=== PATIENT | female | born 1975 | race Caucasian/White ===

== ENCOUNTER → 2017-02-08 | Outpatient (CLI) | payer OTHER ==
[2017-02-08 11:11] LABS: Blood Urea Nitrogen 8 mg/dL (7-17)
--- NOTE | 2017-02-08 12:41 | CT ---
EXAMINATION TYPE: CT ChestAbdPelvis w con DATE OF EXAM: 02/08/2017 COMPARISON: NONE HISTORY: Colon cancer CT DLP: 429.40 mGycm. Automated Exposure Control for Dose Reduction was Utilized. CONTRAST: CT scan of the thorax, abdomen and pelvis is performed with IV Contrast, patient injected with 100 ml mL of Omnipaque 300. FINDINGS: LUNGS: There is a 3 mm pulmonary nodule within the right upper lobe on series 4 image 9 peripherally. Mild right apical paraseptal emphysematous changes are also seen. Scattered blebs are noted. Right u pper lobe pulmonary nodule on series 4 image 23 measures 3 mm. Right middle lobe pulmonary nodule liliana t is subpleural location on image 26 measures 2 mm. Right middle lobe nodule also on image 26 measure s 3 mm. Right lower lobe pulmonary nodule medially on image 26 measures 8 mm. Right lower lobe nodule on image 28 measures 3 mm. Right lower lobe nodule at the lung base on image 40 measures 1.7 cm. Wit hin the left lower lobe along the interlobar fissure there is a 5 mm pulmonary nodule within the ling debbie there is a 4 mm pulmonary nodule on image 29 and a 3 mm nodule on image 36. There is no pleural e ffusion or pneumothorax seen. The tracheobronchial tree is patent. MEDIASTINUM: Right hilar conglomeration of lymph nodes measures 1.8 x 1.7 cm. Subcarinal lymph node m easures 9 mm in short axis. Nonenlarged are prominent prevascular lymph nodes are also seen within th e mediastinum. Left paraesophageal lymph node on image 34 measures 1.8 x 1.3 cm. Other smaller paraes ophageal lymph nodes are seen on images 43 and 45. Left supraclavicular adenopathy is noted with the largest conglomeration on image 6 measuring 1.8 x 1.9 cm.. No pericardial effusion is seen. LIVER/GB: Innumerable hepatic metastases are present with the largest involving segments 4A, 4B, and 5 measuring up to 8.2 x 6.3 x 6.5 cm. This is measured for reference on series 3 image 62 and series 8 image 36. Subserosal peritoneal lesion with possible parenchymal involvement is also seen on image 48 measuring 2.6 cm. Small amount of perihepatic ascites tracks into the low pelvis. PANCREAS: No ductal dilatation within the pancreas.. SPLEEN: Low-density lesion near the splenic hilum measures 2.1 cm in is thought to represent an abnor mal lymph node or metastatic peritoneal deposit. ADRENALS: No nodule is seen within the adrenal glands. KIDNEYS: Kidneys enhance symmetrically. BOWEL: Left-sided ostomy is present. Radiodense linear material seen within the distal sigmoid colon near the rectosigmoid junction possibly from an ingested substance. Calcific density is also seen gerda r the rectum could be postsurgical or related to a calcified node. No evidence of bowel obstruction o r dilated bowel. GENITAL ORGANS: Uterus is obscured by the innumerable peritoneal implants. OSSEOUS STRUCTURES: Sclerotic lesion within the right superior acetabulum is present on image 101 karrie suring 7 mm. This is nonspecific and could represent metastasis or a benign bone island. Osseous stru ctures appear intact. MESENTERY/LYMPH NODES: Innumerable mesenteric implants versus extensive adenopathy is seen within the abdomen and pelvis with the largest conglomeration on series 3 image 81 measuring 5.8 x 4.7 byr 6.0 cm. Innumerable rounded soft tissue densities are interposed between loops of bowel and surrounding t he uterus. This also impresses upon the urinary bladder. IMPRESSION: 1. Extensive metastatic disease with supraclavicular adenopathy, mediastinal adenopathy, numerous pul monary nodules, innumerable large hepatic metastasis involving both lobes and innumerable soft tissue mesenteric metastatic deposits and/or extensive adenopathy within the abdomen and pelvis. 2. Well-circumscribed sclerotic lesion within the right acetabulum could represent metastasis or a gladys ne island. 3. Linear rectosigmoid junction density may relate to an ingested foreign object. A Yellow message has been communicated to Blake Louis MD via the [email or web address] Critical Result system on 02/08/2017 12:38 PM, Message ID [id number].
== END | disposition home or self-care (01) ==
LOC: RADPROMAIN 10:26
PROVIDERS: ATTEND Internal Medicine Hematology & Oncology
DX: C78.7 Secondary malignant neoplasm of liver and intrahepatic bile duct (principal); C18.7 Malignant neoplasm of sigmoid colon; C78.6 Secondary malignant neoplasm of retroperitoneum and peritoneum
CPT/HCPCS: 82565; 84520; 71260; 74177; Q9967

== ENCOUNTER → 2017-05-01 | Outpatient (CLI) | payer OTHER ==
[2017-05-01 09:46] LABS: Blood Urea Nitrogen 10 mg/dL (7-17)
--- NOTE | 2017-05-01 13:44 | CT ---
EXAMINATION TYPE: CT ChestAbdPelvis w con DATE OF EXAM: 05/01/2017 COMPARISON: CT chest abdomen and pelvis February 08, [address] abdomen and pelvis Aug HISTORY: Colon CA progress study, last chemotherapy 2 weeks ago. History of prior partial colectomy. CT DLP: 477.9 mGycm. Automated Exposure Control for Dose Reduction was Utilized. CONTRAST: CT scan of the thorax, abdomen and pelvis is performed with oral and with IV Contrast, patient inject ed with 100 mL of Isovue 300. FINDINGS: LUNGS: There is progression of pulmonary metastatic disease with multiple new and enlarging nodules i dentified. For reference right basilar nodule measures 2.8 x 2.7 cm axial image 33 and measured 1.7 x 1.3 cm on prior study. Scattered new nodules are noted bilaterally, for reference there is 1.0 x 0.9 cm medial right middle lobe nodule noted. MEDIASTINUM: There are no new greater than 1 cm noncalcified hilar or mediastinal lymph nodes. There are stable prominent but calcified prevascular lymph node axial image 19. No pericardial effusion is seen. OTHER: There is redemonstration of left subclavian Mediport catheter. LIVER/GB: Increasing hepatomegaly is seen with marked progression in size and number of diffuse hepat ic metastatic lesions. For reference largest lesion anteriorly medial segment left hepatic lobe measu res 10.9 cm long axis axial image 60 versus 8.0 cm prior study image 59. IVC is compressed by enlarge d liver. Contracted gallbladder is now seen. PANCREAS: No significant abnormality is seen. SPLEEN: Metastatic focus in splenic hilum now measures 3.3 cm on long axis axial image 60 enlarged in size from prior study where it measured 2.1 cm . ADRENALS: No significant abnormality is seen. KIDNEYS: There are multiple new wedge-shaped areas of hypodensity in both kidneys raising concern for vascular insult. There is suspected new adjacent metastatic focus measuring 1.1 cm laterally mid john e level left kidney series 3 image 66 measuring 1.1 cm on long axis. BOWEL: The oral contrast does not reach colonic level. Visualized bowel shows no suspicious dilatatio n. There is left mid abdominal colostomy. GENITAL ORGANS: Uterus is poorly visualized in the pelvis due to surrounding metastatic deposits. Tub al ligation clips displaced and pelvis are redemonstrated into cul-de-sac. LYMPH NODES: There are marked abnormal abdominal and pelvic lymph nodes as well as innumerable perito leatha and omental masses which have significantly increased in size and number from prior study. For r eference a left mid abdominal posterior or retroperitoneal metastatic lesion measures 6.3 x 5.5 cm cu rrent study image 81 versus 5.8 x 4.7 prior study axial image 41. There is progression of abdominal a nd pelvic ascites with fairly moderate to large amount now present. Patient has very little intra-abd ominal fat evaluation suboptimal. There is now better visualization of subcutaneous metastatic lesion adjacent to ostomy measuring 3.8 cm long axis axial image 74 versus 1.3 cm long axis prior study. OSSEOUS STRUCTURES: No significant abnormality is seen. OTHER: There is new moderate to severe subcutaneous edema or anasarca with diffuse blurring of subcut aneous fat. IMPRESSION: Continued interval progression of metastatic disease as detailed above. New vascular insu lt to bilateral kidneys may be on basis of IVC compression from enlarged liver. Case discussed with ordering oncologist via telephone at time of dictation.
== END | disposition home or self-care (01) ==
LOC: RADPROMAIN 09:08
PROVIDERS: ATTEND Internal Medicine Hematology & Oncology
DX: C78.7 Secondary malignant neoplasm of liver and intrahepatic bile duct (principal); C78.00 Secondary malignant neoplasm of unspecified lung; C78.89 Secondary malignant neoplasm of other digestive organs; C18.7 Malignant neoplasm of sigmoid colon; Z90.49 Acquired absence of other specified parts of digestive tract
CPT/HCPCS: 82565; 84520; 71260; 74177; 36415; Q9967

== ENCOUNTER 2017-05-21 11:01 | Inpatient (IN) | payer OTHER ==
[2017-05-21] MEDS ORDERED: SODIUM CHLORIDE 0.9% 1,000 ML IV STA (11:32)
[2017-05-21] MEDS ORDERED: ONDANSETRON ODT 8 MG TAB.RAPDIS PO STA (11:32)
[2017-05-21 11:52] LABS: Appearance,Urine Clear (Clear); Bacteria,Urine Rare /hpf; Bilirubin,Urine Negative (Negative); Blood,Urine Moderate (Negative); Color,Urine Yellow; Glucose,Urine (UA) Negative (Negative); Ketones,Urine Negative (Negative); Leukocyte Esterase,Urine Small (Negative); Mucus,Urine Rare /hpf; Nitrite,Urine Negative (Negative); Protein,Urine Trace (Negative); RBC,Urine 25 /hpf (0-5); Specific Gravity,Urine 1.013 (1.001-1.035); Squamous Epithelial Cell,Urine 3 /hpf (0-4); WBC,Urine 22 /hpf (0-5)
[2017-05-21 11:53] LABS: Anisocytosis Slight; Basophils % (A) 0 %; Eosinophils % (A) 0 %; HCT 34.4 % (34.0-46.0); HGB 10.2 gm/dL (11.4-16.0); Hypochromasia Marked; Lymphocytes # (A) 0.3 k/uL (1.0-4.8); Lymphocytes % (A) 3 %; MCH 27.8 pg (25.0-35.0); MCHC 29.8 g/dL (31.0-37.0); MCV 93.3 fL (80.0-100.0); Macrocytosis Slight; Mean Platelet Volume 7.4; Monocytes # (A) 0.8 k/uL (0-1.0); Monocytes % (A) 8 %; Neutrophils # (A) 8.9 k/uL (1.3-7.7); Neutrophils % (A) 87 %; RBC 3.68 m/uL (3.80-5.40); RDW 18.6 % (11.5-15.5); WBC 10.2 k/uL (3.8-10.6)
[2017-05-21 11:54] LABS: Platelet Count 783 k/uL (150-450)
[2017-05-21 11:59] LABS: ALT 27 U/L (9-52); AST 83 U/L (14-36); Alkaline Phosphatase 581 U/L (38-126); Amylase 43 U/L (30-110); Anion Gap 16 mmol/L; Blood Urea Nitrogen 15 mg/dL (7-17); Carbon Dioxide 25 mmol/L (22-30); Chloride 99 mmol/L (98-107); Glucose 83 mg/dL (74-99); Lipase 69 U/L (23-300); Potassium 3.9 mmol/L (3.5-5.1); Sodium 140 mmol/L (137-145); Total Bilirubin 0.9 mg/dL (0.2-1.3); Total Protein 6.2 g/dL (6.3-8.2)
--- NOTE | 2017-05-21 12:00 | ED ---
Abdominal Pain HPI - General Chief Complaint: Abdominal Pain Stated Complaint: Poss Bowel Obstruction Time Seen by Provider: 05/21/17 11:13 Source: patient, RN notes reviewed, old records reviewed Mode of arrival: ambulatory Limitations: no limitations - History of Present Illness Initial Comments: 41-year-old female presents emergency Department chief complaint of abdominal distention. She has history of colon cancer currently undergoing chemotherapy. She has history of neurofibromatosis as well. Patient per that she's not had a bowel movement from her colostomy site within the past 2 days. Upon arriving to emergency. She did have this large amount of stool that came out. She reports she felt some relief of the pressure but still complains of some distention. She denies any changes in urination. She does complain of some abdominal pain and radiating towards the back. She denies any chest pain shortness breath or coughing. She is currently undergoing chemotherapy. She has a bag of chemo currently running into her report. - Related Data Home Medications Medication Instructions Recorded Confirmed Acetaminophen Tab [Tylenol Tab] 650 mg PO Q6HR PRN 05/21/17 05/21/17 Calcium Carbonate [Tums] 500 mg PO TID PRN 05/21/17 05/21/17 Doxycycline Hyclate 100 mg PO BID 05/21/17 05/21/17 Ferrous Sulfate [Feosol] 325 mg PO DAILY 05/21/17 05/21/17 Furosemide [Lasix] 20 mg PO DAILY 05/21/17 05/21/17 HYDROcodone/APAP 10-325MG [[place] 1 tab PO Q6H PRN 05/21/17 05/21/17 10-325] Ondansetron [Zofran] 4 mg PO QID PRN 05/21/17 05/21/17 Allergies Allergy/AdvReac Type Severity Reaction Status Date / Time Penicillins Allergy Rapid Verified 05/21/17 11:16 Heart Rate promethazine [From Phenergan] Allergy Rash/Hives Verified 05/21/17 11:16 metoclopramide [From Reglan] AdvReac Dyspnea Verified 05/21/17 11:16 Review of Systems ROS Statement: Those systems with pertinent positive or pertinent negative responses have been documented in the HPI. ROS Other: All systems not noted in ROS Statement are negative. Past Medical History Additional Past Medical History / Comment(s): Nf1, stage 4 colon cancer History of Any Multi-Drug Resistant Organisms: None Reported Past Surgical History: Orthopedic Surgery, Tonsillectomy Additional Past Surgical History / Comment(s): bowel resection Past Psychological History: No Psychological Hx Reported Smoking Status: Former smoker Past Alcohol Use History: None Reported Past Drug Use History: None Reported General Exam - General Exam Comments Initial Comments: 41-year-old female. No distress. Limitations: no limitations General appearance: alert, in no apparent distress Head exam: Present: atraumatic, normocephalic, normal inspection Eye exam: Present: normal appearance, PERRL, EOMI. Absent: scleral icterus, conjunctival injection, periorbital swelling ENT exam: Present: normal exam, mucous membranes moist Neck exam: Present: normal inspection. Absent: tenderness, meningismus, lymphadenopathy Respiratory exam: Present: normal lung sounds bilaterally. Absent: respiratory distress, wheezes, rales, rhonchi, stridor Cardiovascular Exam: Present: normal rhythm, tachycardia, normal heart sounds. Absent: systolic murmur, diastolic murmur, rubs, gallop, clicks GI/Abdominal exam: Present: tenderness, normal bowel sounds. Absent: soft ( Patient has significant tenderness and distention on exam. She had a large amount of output from her colostomy site. There is a tympanic to percussion.), distended, guarding, rebound, rigid Extremities exam: Present: normal inspection, full ROM, normal capillary refill , other ( is very thin and frail.). Absent: tenderness, pedal edema, joint swelling, calf tenderness Back exam: Present: normal inspection Neurological exam: Present: alert, oriented X3, CN II-XII intact Psychiatric exam: Present: normal affect, normal mood Skin exam: Present: warm, dry, intact, normal color, other (Evidence of small protrusions of her skin throughout body consistent with neurofibromatosis.). Absent: rash Course Vital Signs 05/21/17 05/21/17 11:04 15:40 Temperature 97.8 F Pulse Rate 118 H 114 H Respiratory 18 18 Rate Blood Pressure 178/100 146/104 O2 Sat by Pulse 98 96 Oximetry Medical Decision Making - Medical Decision Making Patient's 41-year-old female chief complaint of abdominal pain and distention. Sent in by primary care provider to rule out bowel obstruction. She did have a large stool output from her colostomy site. She's had a history of bowel obstruction in the past that he she had a colostomy placed. Patient continues to have significant distention despite having the large bowel movement. We did a CT on pelvis which shows evidence of ascites and scar. No evidence of pleural effusions. She also noted have an elevated lactic acid. Given 2 L of fluid. Patient reports she does have some back pain given morphine. Discussed with Dr. Kearney. He also examined the patient. [place] the patient at this time and consult to oncology. She also is found to have a urinary tract infection. We'll do urine culture. Given IV Levaquin. Case with Dr. Lee. - Lab Data Result diagrams: 05/21/17 11:35 05/21/17 11:35 Lab Results 05/21/17 05/21/17 05/21/17 Range/Units 11:35 11:35 11:35 WBC 10.2 (3.8-10.6) k/uL RBC 3.68 L (3.80-5.40) m/uL Hgb 10.2 L (11.4-16.0) gm/dL Hct 34.4 (34.0-46.0) % MCV 93.3 (80.0-100.0) fL MCH 27.8 (25.0-35.0) pg MCHC 29.8 L (31.0-37.0) g/dL RDW 18.6 H (11.5-15.5) % Plt Count 783 H (150-450) k/uL Neutrophils % 87 % Lymphocytes % 3 % Monocytes % 8 % Eosinophils % 0 % Basophils % 0 % Neutrophils # 8.9 H (1.3-7.7) k/uL Lymphocytes # 0.3 L (1.0-4.8) k/uL Monocytes # 0.8 (0-1.0) k/uL Eosinophils # 0.0 (0-0.7) k/uL Basophils # 0.0 (0-0.2) k/uL Hypochromasia Marked Anisocytosis Slight Macrocytosis Slight Sodium 140 (137-145) mmol/L Potassium 3.9 (3.5-5.1) mmol/L Chloride 99 (98-107) mmol/L Carbon Dioxide 25 (22-30) mmol/L Anion Gap 16 mmol/L BUN 15 (7-17) mg/dL Creatinine 0.50 L (0.52-1.04) mg/dL Est GFR (CKD-EPI)AfAm >90 (>60 ml/min/1.73 sqM) Est GFR (CKD-EPI)NonAf >90 (>60 ml/min/1.73 sqM) Glucose 83 (74-99) mg/dL Lactic Ac Sepsis Rflx Plasma Lactic Acid Malcolm (0.7-2.0) mmol/L Calcium 9.0 (8.4-10.2) mg/dL Total Bilirubin 0.9 (0.2-1.3) mg/dL AST 83 H (14-36) U/L ALT 27 (9-52) U/L Alkaline Phosphatase 581 H (38-126) U/L Total Protein 6.2 L (6.3-8.2) g/dL Albumin 3.0 L (3.5-5.0) g/dL Amylase 43 (30-110) U/L Lipase 69 (23-300) U/L Urine Color Yellow Urine Appearance Clear (Clear) Urine pH 6.0 (5.0-8.0) Ur Specific [place] 1.013 (1.001-1.035) Urine Protein Trace H (Negative) Urine Glucose (UA) Negative (Negative) Urine Ketones Negative (Negative) Urine Blood Moderate H (Negative) Urine Nitrite Negative (Negative) Urine Bilirubin Negative (Negative) Urine Urobilinogen 2.0 (<2.0) mg/dL Ur Leukocyte Esterase Small H (Negative) Urine RBC 25 H (0-5) /hpf Urine WBC 22 H (0-5) /hpf Ur Squamous Epith Cells 3 (0-4) /hpf Urine Bacteria Rare H (None) /hpf Urine Mucus Rare H (None) /hpf 05/21/17 05/21/17 05/21/17 Range/Units 11:35 12:03 15:29 WBC (3.8-10.6) k/uL RBC (3.80-5.40) m/uL Hgb (11.4-16.0) gm/dL Hct (34.0-46.0) % MCV (80.0-100.0) fL MCH (25.0-35.0) pg MCHC (31.0-37.0) g/dL RDW (11.5-15.5) % Plt Count (150-450) k/uL Neutrophils % % Lymphocytes % % Monocytes % % Eosinophils % % Basophils % % Neutrophils # (1.3-7.7) k/uL Lymphocytes # (1.0-4.8) k/uL Monocytes # (0-1.0) k/uL Eosinophils # (0-0.7) k/uL Basophils # (0-0.2) k/uL Hypochromasia Anisocytosis Macrocytosis Sodium (137-145) mmol/L Potassium (3.5-5.1) mmol/L Chloride (98-107) mmol/L Carbon Dioxide (22-30) mmol/L Anion Gap mmol/L BUN (7-17) mg/dL Creatinine (0.52-1.04) mg/dL Est GFR (CKD-EPI)AfAm (>60 ml/min/1.73 sqM) Est GFR (CKD-EPI)NonAf (>60 ml/min/1.73 sqM) Glucose (74-99) mg/dL Lactic Ac Sepsis Rflx Y Plasma Lactic Acid Malcolm 2.7 H* 2.6 H* (0.7-2.0) mmol/L Calcium (8.4-10.2) mg/dL Total Bilirubin (0.2-1.3) mg/dL AST (14-36) U/L ALT (9-52) U/L Alkaline Phosphatase (38-126) U/L Total Protein (6.3-8.2) g/dL Albumin (3.5-5.0) g/dL Amylase (30-110) U/L Lipase (23-300) U/L Urine Color Urine Appearance (Clear) Urine pH (5.0-8.0) Ur Specific [place] (1.001-1.035) Urine Protein (Negative) Urine Glucose (UA) (Negative) Urine Ketones (Negative) Urine Blood (Negative) Urine Nitrite (Negative) Urine Bilirubin (Negative) Urine Urobilinogen (<2.0) mg/dL Ur Leukocyte Esterase (Negative) Urine RBC (0-5) /hpf Urine WBC (0-5) /hpf Ur Squamous Epith Cells (0-4) /hpf Urine Bacteria (None) /hpf Urine Mucus (None) /hpf - Radiology Data Radiology results: report reviewed Asymmetric effusion to the left kidney to the right kidney may relate to diminish venous outflow. There is ascites and pleural effusions and scar. Innumerable hepatic masses. Metastatic disease noted in the spleen. Adenopathy as prescribed. Compression of the inferior vena cava. There is moderate fecal stasis noted. Disposition Clinical Impression: Colon cancer, Ascites, Abdominal distension, Lactic acid increased, UTI ( urinary tract infection), Pleural effusion Disposition: ADMITTED IP TO THIS HOSP Condition: Stable Referrals: Cammie Henderson MD [Primary Care Provider] - 1-2 days Time of Disposition: 16:28
[2017-05-21] MEDS ORDERED: SODIUM CHLORIDE 0.9% 1,000 ML IV ONE (12:02)
--- NOTE | 2017-05-21 12:07 | XR ---
EXAMINATION TYPE: XR KUB DATE OF EXAM: 05/21/2017 COMPARISON: NONE HISTORY: Pain TECHNIQUE: Single supine KUB image of the abdomen is obtained FINDINGS: Small bowel demonstrates a few scattered air-fluid levels and mild distention which is nonspecific. Gas and fecal material is seen in non-distended colon. No convincing evidence for pneumoperitoneum. No unusual calcifications. The lung bases are clear. The osseous structures are intact. IMPRESSION: 1. Overall nonobstructive bowel gas pattern.
[2017-05-21] MEDS ORDERED: RX INFO: IV CONTRAST WAS GIVEN 1 EACH MISC MISCELLANE PRN (12:33)
[2017-05-21] MEDS ORDERED: MORPHINE SULFATE 4MG/4ML SYRG IVP STA (12:50)
[2017-05-21] MEDS: SODIUM CHLORIDE 0.9% 1,000 ML IV SCH ×2 (14:12→22:33)
--- NOTE | 2017-05-21 15:13 | CT ---
EXAMINATION TYPE: CT abdomen pelvis w con DATE OF EXAM: 05/21/2017 COMPARISON: 05/01/2017 HISTORY: Abd distention. CT DLP: 1033 mGycm CONTRAST: CT scan of the abdomen and pelvis is performed without Oral Contrast and with IV Contrast, patient in jected with 100ml mL of Isovue M300. FINDINGS: LUNG BASES-: Basilar atelectasis as well as the nodules and small pleural effusions. LIVER/GB: Innumerable hepatic masses are identified as seen previously. The largest mass previously m easured 11 cm in greatest dimension and currently measures 11 cm as well. The gallbladder appears to be free of cholelithiasis. There is compression of the intrahepatic portion of the IVC. PANCREAS: No inflammation. No distinct mass. SPLEEN: Again noted are splenic lesions as well as adenopathy or mass in the region of the splenic hi lum unchanged. ADRENALS: No nodule. No thickening. KIDNEYS/BLADDER: Asymmetric perfusion of the left kidney relative to the right kidney may be related to diminished venous outflow. No hydronephrosis. No nephrolithiasis. No distinct renal mass. Urina ry bladder grossly unremarkable. BOWEL: Left-sided ostomy changes. Mild bowel distention. Large amount of intracolonic debris. GENITAL ORGANS: No gross abnormality. LYMPH NODES: Para-aortic adenopathy is stable. Aorto intracaval adenopathy appears stable. Large left para-aortic mass measuring 6.6 x 7.2 cm. Peritoneal nodularity seen throughout unchanged. Multiple p elvic masses again redemonstrated. AORTA: No significant abnormality. OSSEOUS STRUCTURES: No significant abnormality is seen. OTHER: There is extensive ascites throughout the abdomen and pelvis. Anasarca changes. . IMPRESSION: 1. Asymmetric perfusion of the left kidney relative to the right kidney may be related to diminished venous outflow. 2. Ascites, pleural effusions and anasarca. 3. Innumerable hepatic masses. Metastatic disease to the spleen. 4. Adenopathy as described. Compression of the inferior vena cava. 5 moderate fecal stasis.
[2017-05-21] MEDS ORDERED: ACETAMINOPHEN TAB 325 MG TAB PO PRN (16:28)
[2017-05-21] MEDS ORDERED: IBUPROFEN 400 MG TAB PO PRN (16:28)
[2017-05-21] MEDS ORDERED: NALOXONE 0.4 MG/ML 1 ML VIAL IV PRN (16:28)
[2017-05-21] MEDS ORDERED: LEVOFLOXACIN 750MG-D5W PMX 750 MG in DEXTROSE/WATER 1 150ML.BAG IVPB STA (16:28)
[2017-05-21] MEDS ORDERED: HYDROcodone/APAP 10-325MG 1 EACH TAB PO PRN (17:00)
[2017-05-21] MEDS: KETOROLAC 30 MG/ML 1 ML VIAL IVP PRN (17:06)
[2017-05-21 18:43] LABS: INR 1.4 (<1.2); Prothrombin Time 12.9 sec (9.0-12.0)
--- NOTE | 2017-05-21 18:52 | P.HPIM ---
History of Present Illness H&P Date: 05/21/17 Chief Complaint: Abdominal distention and constipation of 2 days' duration 41-year-old female with history of neurofibromatosis type I. She was diagnosed with metastatic colon cancer stage IV back in August 2016 and then was started on chemotherapy in October 2016. She has received 12 cycles of chemotherapy thus far and currently she is receiving chemotherapy through a pump. Patient presented to the hospital due to 2 day history of abdominal distention and constipation. Her colostomy has not been functioning for the past 2 days associated with some nauseous feeling and dry heaves mainly however the did report that she threw up after one of her meals yesterday. Her vomiting is nonbloody nonbilious at this time. Patient however denies any nausea at this time, and she reports that she felt way better after passing a bowel movement in the ED. Patient denies any trouble breathing, chest pain, or any urinary symptoms. Her urine analysis was dirty however she denies any urinary symptoms at this point. CODE STATUS was discussed with the patient, her wishes are to continue aggressive management of her cancer and to continue with chemotherapy at this point. She elected to be a full code and named her as a surrogate decision maker. Otherwise patient denies any fevers or chills at home, she is currently tolerating clear liquid diet and is asking to advance her diet. She denies any history of ascites or spontaneous bacterial peritonitis in the past. She denies any history of DVT. Review of Systems Constitutional: Patient denies fever, denies chills, denies night sweating, patient claims to be small all her life however she does admit to losing some weight Eyes: Patient denies visual changes, denies eye pain ENT: Patient denies ear pain, denies rhinorrhea, denies sore throat Cardiovascular: Patient denies chest pain, denies exertional dyspnea, denies peripheral leg edema, denies orthopnea, denies paroxysmal nocturnal dyspnea Respiratory:Patient denies cough, denies wheezing, denies shortness of breath Gastrointestinal: Patient patient has a colostomy, was constant for 2 days as mentioned in HPI, denies any abdominal pain Genitourinary: Patient denies dysuria, denies hematuria, denies changes in urinary habits, denies genital lesions Musculoskeletal: Patient denies muscle pain, denies joint pain Psychiatric: Patient denies changes in mood or memory, denies suicidal ideation, denies anxiety Endocrine: Patient denies heat intolerance, denies cold intolerance, denies excessive thirst, denies polyuria Neurological: Patient denies focal neurologic deficits, denies weakness, denies numbness, denies tingling Hem/Lymphatic: Patient denies bleeding tendency, denies bruising, denies swollen lymph glands Allergic/Immun: Patient denies recent allergic reactions Skin: Patient denies rashes, denies pruritis, denies ulcers Past Medical History Additional Past Medical History / Comment(s): Nf1, stage 4 colon cancer History of Any Multi-Drug Resistant Organisms: None Reported Past Surgical History: Orthopedic Surgery, Tonsillectomy Additional Past Surgical History / Comment(s): bowel resection Past Psychological History: No Psychological Hx Reported Smoking Status: Former smoker Past Alcohol Use History: None Reported Past Drug Use History: None Reported - Past Family History Family Additional Family Medical History / Comment(s): Denies any family history of cancer or coronary artery disease Medications and Allergies Home Medications and Allergies Comment(s): Reviewed Home Medications Medication Instructions Recorded Confirmed Type Acetaminophen Tab [Tylenol Tab] 650 mg PO Q6HR PRN 05/21/17 05/21/17 History Calcium Carbonate [Tums] 500 mg PO TID PRN 05/21/17 05/21/17 History Doxycycline Hyclate 100 mg PO BID 05/21/17 05/21/17 History Ferrous Sulfate [Feosol] 325 mg PO DAILY 05/21/17 05/21/17 History Furosemide [Lasix] 20 mg PO DAILY 05/21/17 05/21/17 History HYDROcodone/APAP 10-325MG [[place] 1 tab PO Q6H PRN 05/21/17 05/21/17 History 10-325] Ondansetron [Zofran] 4 mg PO QID PRN 05/21/17 05/21/17 History Allergies Allergy/AdvReac Type Severity Reaction Status Date / Time Penicillins Allergy Rapid Verified 05/21/17 11:16 Heart Rate promethazine [From Phenergan] Allergy Rash/Hives Verified 05/21/17 11:16 metoclopramide [From Reglan] AdvReac Dyspnea Verified 05/21/17 11:16 Physical Exam Vitals: Vital Signs Temp Pulse Resp BP Pulse Ox 05/21/17 15:40 114 H 18 146/104 96 04/10/18 11:04 97.8 F 118 H 18 178/100 98 Intake and Output 05/21/17 05/21/17 05/21/17 06:59 14:59 22:59 Other: Weight 50.349 kg Constitutional: No acute distress, conversant, pleasant, cachectic Eyes: Anicteric sclerae, moist conjunctiva, no lid-lag Pupils equal round reactive to light ENMT: NC/AT Oropharynx clear, no erythema, exudates Neck: Supple, FROM, no masses, or JVD No carotid bruits No thyromegaly Lungs: Clear to auscultation Clear to percussion Normal respiratory effort, no accessory muscle use Cardiovascular: Heart tachycardic regular in rate and rhythm, No murmurs, gallops, or rubs +2 peripheral edema Abdominal: Significantly distended, Nontender, no guarding, rebound or rigidity Abdomen moving with respiration Normoactive bowel sounds Colostomy bag in place functional at this point no evidence of bleeding Multiple palpable masses through her thin abdominal wall, positive hepatomegaly nodular No visible abdominal hernias Skin: Normal temperature, tone, texture, turgor No induration Multiple cutaneous lesions due to history of neurofibromatosis No rash No ulcers Extremities: No digital cyanosis No clubbing Pedal pulses intact and symmetrical Radial pulses intact and symmetrical No calf tenderness Psychiatric: Alert and oriented to person, place and time Appropriate affect fair judgment Neuro Muscles Strength -4/5 in all 4 extremities Sensation to light touch grossly present throughout Cranial nerves II-XII grossly intact No focal sensory deficits Lymphatics: no palpable cervical or supraclavicular , or inguinal lymph nodes Results CBC & Chem 7: 05/21/17 11:35 05/21/17 11:35 Labs: Abnormal Lab Results - Last 24 Hours (Table) 05/21/17 05/21/17 05/21/17 Range/Units 11:35 11:35 11:35 RBC 3.68 L (3.80-5.40) m/uL Hgb 10.2 L (11.4-16.0) gm/dL MCHC 29.8 L (31.0-37.0) g/dL RDW 18.6 H (11.5-15.5) % Plt Count 783 H (150-450) k/uL Neutrophils # 8.9 H (1.3-7.7) k/uL Lymphocytes # 0.3 L (1.0-4.8) k/uL Creatinine 0.50 L (0.52-1.04) mg/dL Plasma Lactic Acid Malcolm (0.7-2.0) mmol/L AST 83 H (14-36) U/L Alkaline Phosphatase 581 H (38-126) U/L Total Protein 6.2 L (6.3-8.2) g/dL Albumin 3.0 L (3.5-5.0) g/dL Urine Protein Trace H (Negative) Urine Blood Moderate H (Negative) Ur Leukocyte Esterase Small H (Negative) Urine RBC 25 H (0-5) /hpf Urine WBC 22 H (0-5) /hpf Urine Bacteria Rare H (None) /hpf Urine Mucus Rare H (None) /hpf 05/21/17 05/21/17 Range/Units 11:35 15:29 RBC (3.80-5.40) m/uL Hgb (11.4-16.0) gm/dL MCHC (31.0-37.0) g/dL RDW (11.5-15.5) % Plt Count (150-450) k/uL Neutrophils # (1.3-7.7) k/uL Lymphocytes # (1.0-4.8) k/uL Creatinine (0.52-1.04) mg/dL Plasma Lactic Acid Malcolm 2.7 H* 2.6 H* (0.7-2.0) mmol/L AST (14-36) U/L Alkaline Phosphatase (38-126) U/L Total Protein (6.3-8.2) g/dL Albumin (3.5-5.0) g/dL Urine Protein (Negative) Urine Blood (Negative) Ur Leukocyte Esterase (Negative) Urine RBC (0-5) /hpf Urine WBC (0-5) /hpf Urine Bacteria (None) /hpf Urine Mucus (None) /hpf Assessment and Plan Assessment: 41-year-old female with history of neurofibromatosis type I, 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 Status post diverting colostomy. Presented due to significant abdominal distention and constipation of 2 days' duration along with vomiting post meals Plan: #Stage IV metastatic colon cancer #Constipation rule out bowel obstruction #Ascites, due to metastatic colon cancer to the liver with portal hypertension, and evidence of intrahepatic IVC compression Currently on chemotherapy Patient wishes this to continue aggressive management Oncology consult Supportive care Symptomatic control of nausea and vomiting CAT scan of the abdomen did not show any evidence of bowel obstruction, however ascites, and metastatic cancer IV fluid hydration and supportive care, will advance her diet gradually start with clear liquids as tolerated further recommendations pending clinical progress If patient fails to obtain satisfactory by mouth intake, her options would be to have parenteral feeding Vascular surgery to evaluate intrahepatic IVC compression for further recommendations We'll await further oncology recommendations regarding benefit of paracentesis for symptomatic control, or any other considerations for intraperitoneal chemotherapy #Neurofibromatosis type I #DVT prophylaxis on Lovenox #Diet clear liquid advance as tolerated #Chronic anemia secondary to colon cancer chronic disease Patient denies any active bleeding Continue with supplemental iron therapy by mouth #Lactic acidosis, mild is most likely due to advanced liver disease and inability to clear Continue to monitor liver function Check PT/INR Discontinue IV antibiotics, patient denies any urinary symptoms to suggest UTI. Check morning labs in a.m., liver tests, CBC, electrolytes Preformed a thorough record review, patient has no recent hospitalization this hospital, she only has prior CAT scans done on electronic records available and reviewed. Surrogate decision-maker: Patient CODE STATUS full code DVT prophylaxi Lovenox Discussed with: Patient, ER, patient family Anticipated discharge: 48-[address]: Home A total of 60 minutes were spent on the care of this complex patient more than 50% of the time was spent in counseling and care coordination.
[2017-05-21] MEDS: MORPHINE SULFATE 4MG/4ML SYRG IV PRN (22:31)
[2017-05-21] MEDS: ENOXAPARIN 40 MG/0.4 ML SYRINGE SQ SCH (22:32)
[2017-05-22] MEDS: ONDANSETRON 4 MG/2 ML VIAL IVP PRN ×2 (07:22→20:04)
[2017-05-22] MEDS: MORPHINE SULFATE 4MG/4ML SYRG IV PRN ×4 (07:22→23:35)
[2017-05-22] MEDS: SODIUM CHLORIDE 0.9% 1,000 ML IV SCH ×2 (07:24→23:35)
[2017-05-22 08:15] LABS: Anisocytosis Slight; Basophils % (A) 0 %; Eosinophils % (A) 0 %; HCT 31.8 % (34.0-46.0); HGB 9.7 gm/dL (11.4-16.0); Hypochromasia Marked; Lymphocytes # (A) 0.2 k/uL (1.0-4.8); Lymphocytes % (A) 3 %; MCH 28.6 pg (25.0-35.0); MCHC 30.5 g/dL (31.0-37.0); MCV 93.9 fL (80.0-100.0); Macrocytosis Slight; Mean Platelet Volume 7.1; Monocytes # (A) 0.1 k/uL (0-1.0); Monocytes % (A) 3 %; Neutrophils # (A) 4.3 k/uL (1.3-7.7); Neutrophils % (A) 92 %; Platelet Count 544 k/uL (150-450); RBC 3.39 m/uL (3.80-5.40); RDW 18.4 % (11.5-15.5); WBC 4.7 k/uL (3.8-10.6)
[2017-05-22 08:16] LABS: ALT 25 U/L (9-52); AST 95 U/L (14-36); Albumin 2.5 g/dL (3.5-5.0); Alkaline Phosphatase 469 U/L (38-126); Anion Gap 14 mmol/L; Blood Urea Nitrogen 15 mg/dL (7-17); Calcium 8.3 mg/dL (8.4-10.2); Carbon Dioxide 23 mmol/L (22-30); Chloride 103 mmol/L (98-107); Glucose 67 mg/dL (74-99); Magnesium 1.9 mg/dL (1.6-2.3); Phosphorus 4.3 mg/dL (2.5-4.5); Potassium 3.7 mmol/L (3.5-5.1); Sodium 140 mmol/L (137-145); Total Bilirubin 0.8 mg/dL (0.2-1.3); Total Protein 5.3 g/dL (6.3-8.2)
[2017-05-22] MEDS ORDERED: FUROSEMIDE 20 MG TAB PO SCH (09:00)
[2017-05-22] MEDS: ENOXAPARIN 40 MG/0.4 ML SYRINGE SQ SCH (10:26)
[2017-05-22] MEDS: FERROUS SULFATE 325 MG TAB PO SCH (12:00)
[2017-05-22] MEDS: PANTOPRAZOLE 40 MG/10 ML VIAL IV SCH (12:00)
--- NOTE | 2017-05-22 16:15 | P.PN ---
Subjective Progress Note Date: 05/22/17 Principal diagnosis: Patient seen and examined in follow-up of abdominal distention and ascites Patient seen and examined today, reports tolerating by mouth intake liquid diet , stoma is functional denies any bleeding. She denies any trouble breathing or chest pain. Is keeping her positive attitude toward recovery. Objective - Vital Signs Vital signs: Vital Signs Temp 98.1 F 05/22/17 07:00 Pulse 119 H 05/22/17 07:00 Resp 18 05/22/17 07:00 BP 142/98 05/22/17 07:00 Pulse Ox 95 05/22/17 07:00 Intake & Output 05/21/17 05/22/17 05/22/17 18:59 06:59 18:59 Intake Total 800 Balance 800 Weight 50.349 kg 53.5 kg Intake: Intake, IV Titration 800 Amount Sodium Chloride 0.9% 1, 800 000 ml @ 100 mls/hr IV . Q10H [facility] Rx#:[id number] Other: Voiding Method Toilet - Exam Constitutional: vital signs stable, Not in acute distress, pleasant, conversant, no asterixis Lungs: Clear to auscultation bilaterally , normal respiratory effort Cardiovascular: Regular rate and rhythm, no murmurs, no gallops, no rubs, bilateral leg +1 peripheral edema more on the left Gastrointestinal: Abdomen distended, no tenderness to palpation, palpable multiple masses intra-abdominally, enlarged liver nodular, colostomy bag in place with yellowish brownish stool liquid in nature no bleeding Extremities: No digital cyanosis peripheral pulses palpable and equal over bilateral radial arteries and dorsalis pedis artery, no calf muscle tenderness Psych: Alert, oriented to place, person and time, appropriate affect, intact judgment - Labs CBC & Chem 7: 05/22/17 07:47 05/22/17 07:47 Labs: Abnormal Lab Results - Last 24 Hours (Table) 05/21/17 05/21/17 05/21/17 Range/Units 11:35 11:35 11:35 RBC 3.68 L (3.80-5.40) m/uL Hgb 10.2 L (11.4-16.0) gm/dL Hct (34.0-46.0) % MCHC 29.8 L (31.0-37.0) g/dL RDW 18.6 H (11.5-15.5) % Plt Count 783 H (150-450) k/uL Neutrophils # 8.9 H (1.3-7.7) k/uL Lymphocytes # 0.3 L (1.0-4.8) k/uL PT (9.0-12.0) sec INR (<1.2) Creatinine 0.50 L (0.52-1.04) mg/dL Glucose (74-99) mg/dL Plasma Lactic Acid Malcolm (0.7-2.0) mmol/L Calcium (8.4-10.2) mg/dL AST 83 H (14-36) U/L Alkaline Phosphatase 581 H (38-126) U/L Total Protein 6.2 L (6.3-8.2) g/dL Albumin 3.0 L (3.5-5.0) g/dL Urine Protein Trace H (Negative) Urine Blood Moderate H (Negative) Ur Leukocyte Esterase Small H (Negative) Urine RBC 25 H (0-5) /hpf Urine WBC 22 H (0-5) /hpf Urine Bacteria Rare H (None) /hpf Urine Mucus Rare H (None) /hpf 05/21/17 05/21/17 05/21/17 Range/Units 11:35 11:35 15:29 RBC (3.80-5.40) m/uL Hgb (11.4-16.0) gm/dL Hct (34.0-46.0) % MCHC (31.0-37.0) g/dL RDW (11.5-15.5) % Plt Count (150-450) k/uL Neutrophils # (1.3-7.7) k/uL Lymphocytes # (1.0-4.8) k/uL PT 12.9 H (9.0-12.0) sec INR 1.4 H (<1.2) Creatinine (0.52-1.04) mg/dL Glucose (74-99) mg/dL Plasma Lactic Acid Malcolm 2.7 H* 2.6 H* (0.7-2.0) mmol/L Calcium (8.4-10.2) mg/dL AST (14-36) U/L Alkaline Phosphatase (38-126) U/L Total Protein (6.3-8.2) g/dL Albumin (3.5-5.0) g/dL Urine Protein (Negative) Urine Blood (Negative) Ur Leukocyte Esterase (Negative) Urine RBC (0-5) /hpf Urine WBC (0-5) /hpf Urine Bacteria (None) /hpf Urine Mucus (None) /hpf 05/22/17 05/22/17 Range/Units 07:47 07:47 RBC 3.39 L (3.80-5.40) m/uL Hgb 9.7 L (11.4-16.0) gm/dL Hct 31.8 L (34.0-46.0) % MCHC 30.5 L (31.0-37.0) g/dL RDW 18.4 H (11.5-15.5) % Plt Count 544 H (150-450) k/uL Neutrophils # (1.3-7.7) k/uL Lymphocytes # 0.2 L (1.0-4.8) k/uL PT (9.0-12.0) sec INR (<1.2) Creatinine 0.51 L (0.52-1.04) mg/dL Glucose 67 L (74-99) mg/dL Plasma Lactic Acid Malcolm (0.7-2.0) mmol/L Calcium 8.3 L (8.4-10.2) mg/dL AST 95 H (14-36) U/L Alkaline Phosphatase 469 H (38-126) U/L Total Protein 5.3 L (6.3-8.2) g/dL Albumin 2.5 L (3.5-5.0) g/dL Urine Protein (Negative) Urine Blood (Negative) Ur Leukocyte Esterase (Negative) Urine RBC (0-5) /hpf Urine WBC (0-5) /hpf Urine Bacteria (None) /hpf Urine Mucus (None) /hpf Assessment and Plan Assessment: 41-year-old female with history of neurofibromatosis type I, 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 Status post diverting colostomy. Presented due to significant abdominal distention and constipation of 2 days' duration along with vomiting post meals, this has resolved since she passed bowel movement through her colostomy. She is tolerating by mouth intake now with liquid diet. Denies any GI bleeding. Denies any vomiting. Denies any chest pain or trouble breathing. Denies any abdominal pain. Plan for paracentesis today. Patient continues to receive her chemotherapy. Plan: #Stage IV metastatic colon cancer #Constipation rule out bowel obstruction #Ascites, due to metastatic colon cancer to the liver with portal hypertension, and evidence of intrahepatic IVC compression Currently on chemotherapy Patient wishes to continue aggressive management Oncology consult Supportive care Nausea and vomiting resolved Plans were paracentesis today IV fluid hydration and supportive care, Advance her diet after paracentesis regular diet Vascular surgery to evaluate intrahepatic IVC compression for further recommendations #Bilateral leg edema more on the left than the right This is most likely due to inferior vena cava compression intrahepatically However due to asymmetry of the swelling I will perform venous duplex ultrasound of the left lower extremity to rule out DVT #Neurofibromatosis type I #DVT prophylaxis on Lovenox #Diet clear liquid advance as tolerated #Chronic anemia secondary to colon cancer chronic disease Patient denies any active bleeding Continue with supplemental iron therapy by mouth #Lactic acidosis, mild is most likely due to advanced liver disease and inability to clear Continue to monitor liver function, currently stable Await paracentesis today Possible discharge in the morning
--- NOTE | 2017-05-22 17:45 | P.CONS ---
History of Present Illness - Reason for Consult Consult date: 05/22/17 Metastatic Colon Cancer Requesting physician: Ele Herrera - Chief Complaint Decreased output from ostomy, concern for obstruction - History of Present Illness This is a very nice lady who presented with acute LLQ pain,in while residing in [facility],went to ER,had a CT scan of abdomen/pelvis on 08/16 which revealed 2 intra abdominal masses,largest 3.7x4.4cm and thickening of sigmoid colon. PET scan done on 08/21/2016 revealed suspicious lesions in multiple liver lesions,mesenteric,aortic nodes,mediastinal and hilar and bilateral spuraclavicular nodes. On 08/23/2016,colonoscopy revealed significant stenosis at sigmoid colon,biopsy was positive for invasive carcinoma. She presented back to ER with abdominal distension and obstruction,hence underwent emergency surgery on 08/28/2016,she had sigmoidectomy and creation of colosctomy,pathology revealed [id number] disease,tumor perforated serosa and involved small bowels,13/14 nodes. 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 NO KRAS,BRAF,NRAS mutations. On 10/20/2016,CEA was 163.7 She FOLFIRI/vectibix on 11/07/2016. On 12/01/2016,CEA was down to 37.6 On 01/03/2017,CEA was 13.2. On 02/22/2017,repeat CT scan of chest/abdomen/pelvis revealed progression of her disease(However,it was compared to CT scan done on 08/16/2016 while she was in [place],she did not start treatment for about 3 months later on 11/06/2016 ) On 03/05/2017,CEA was 19.1 She completed 12 cycles of FOLFIRI/vectibix on 04/17/2017,which she tolerated well. However,repeat CEA on 04/30/2017 was up to 66.[address] scan of chest/ abdomen/pelvis on 05/01/2017 revealed significant disease progression. Therefore she was started on second line therapy with FOLFOX and Avastin. She currently has chemotherapy pump attached and is receiving 5FU. She presented to the hospital yesterday after a two day concern of increasing abdominal pain, distention, and constipation. She complained of dry heaves and increased distention. She did have some emesis as well, decreased output in ostomy. Seen this am and she does have apparent abdominal ascites, although bowel sounds and ostomy out put are present. at bedside. She denies any pain. Review of Systems A 14 point review of systems assessed and completed and all negative except HPI Past Medical History Past Medical History: Cancer Additional Past Medical History / Comment(s): stage 4 colon cancer-currently recieving chemo, neurofibromytosis History of Any Multi-Drug Resistant Organisms: None Reported Past Surgical History: Ablation, Orthopedic Surgery, Tonsillectomy Additional Past Surgical History / Comment(s): bowel resection-colostomy(pt stated her normal consistency of stool is pasty), rt ankle fatty tumor removed, mediport , uterine ablation Past Anesthesia/Blood Transfusion Reactions: No Reported Reaction Smoking Status: Former smoker - Past Family History Father Family Medical History: Dementia Additional Family Medical History / Comment(s): dad from alzheimers Family Additional Family Medical History / Comment(s): Denies any family history of cancer or coronary artery disease Medications and Allergies Home Medications Medication Instructions Recorded Confirmed Type Acetaminophen Tab [Tylenol Tab] 650 mg PO Q6HR PRN 05/21/17 05/21/17 History Calcium Carbonate [Tums] 500 mg PO TID PRN 05/21/17 05/21/17 History Doxycycline Hyclate 100 mg PO BID 05/21/17 05/21/17 History Ferrous Sulfate [Feosol] 325 mg PO DAILY 05/21/17 05/21/17 History Furosemide [Lasix] 20 mg PO DAILY 05/21/17 05/21/17 History HYDROcodone/APAP 10-325MG [[place] 1 tab PO Q6H PRN 05/21/17 05/21/17 History 10-325] Ondansetron [Zofran] 4 mg PO QID PRN 05/21/17 05/21/17 History Allergies Allergy/AdvReac Type Severity Reaction Status Date / Time Penicillins Allergy Rapid Verified 05/21/17 11:16 Heart Rate promethazine [From Phenergan] Allergy Rash/Hives Verified 05/21/17 11:16 metoclopramide [From Reglan] AdvReac Dyspnea Verified 05/21/17 11:16 Physical Exam Vitals: Vital Signs Temp Pulse Pulse Pulse Resp BP BP 05/22/17 16:11 123 H 150/84 05/22/17 07:00 98.1 F 119 H 18 142/98 05/21/17 23:23 115 H 05/21/17 23:00 97.6 F 112 H 16 132/76 05/21/17 20:34 97.3 F L 116 H 18 134/84 05/21/17 19:31 106 H 18 136/90 Pulse Ox 05/22/17 16:11 94 L 05/22/17 07:00 95 05/21/17 23:23 05/21/17 23:00 95 05/21/17 20:34 95 05/21/17 19:31 96 Intake and Output 05/22/17 05/22/17 05/22/17 06:59 14:59 22:59 Intake Total 800 800 Balance 800 800 Intake: Intake, IV Titration 800 800 Amount Sodium Chloride 0.9% 1, 800 800 000 ml @ 100 mls/hr IV . Q10H [facility] Rx#:[id number] Other: Voiding Method Toilet Toilet Toilet # Voids 1 Weight 53.5 kg 53.5 kg Appears chronically ill and cachectic - Constitutional General appearance: no acute distress, thin - EENT Eyes: EOMI, dentition normal ENT: NA/AT, normal oropharynx - Neck Supple midline trachea Neck: lymphadenopathy - Respiratory Respiratory: bilateral: diminished (Lower lobes) - Cardiovascular Heart rate: 122 Rhythm: regular Heart sounds: normal: S1, S2 - Gastrointestinal Left ostomy with output, large tumor or neurofibrosis like mass left umbilical region and lower abdomen General gastrointestinal: distended, normal bowel sounds Localized gastrointestinal: tender: diffuse - Integumentary Integumentary: pale - Musculoskeletal Musculoskeletal: generalized weakness - Psychiatric Psychiatric: A&O x's 3, appropriate affect, intact judgment & insight Results CBC & Chem 7: 05/22/17 07:47 05/22/17 07:47 Labs: Abnormal Lab Results - Last 24 Hours (Table) 05/21/17 05/22/17 05/22/17 Range/Units 11:35 07:47 07:47 RBC 3.39 L (3.80-5.40) m/uL Hgb 9.7 L (11.4-16.0) gm/dL Hct 31.8 L (34.0-46.0) % MCHC 30.5 L (31.0-37.0) g/dL RDW 18.4 H (11.5-15.5) % Plt Count 544 H (150-450) k/uL Lymphocytes # 0.2 L (1.0-4.8) k/uL PT 12.9 H (9.0-12.0) sec INR 1.4 H (<1.2) Creatinine 0.51 L (0.52-1.04) mg/dL Glucose 67 L (74-99) mg/dL Calcium 8.3 L (8.4-10.2) mg/dL AST 95 H (14-36) U/L Alkaline Phosphatase 469 H (38-126) U/L Total Protein 5.3 L (6.3-8.2) g/dL Albumin 2.5 L (3.5-5.0) g/dL Microbiology - Last 24 Hours (Table) 05/21/17 11:35 Blood Culture - Preliminary Blood No Growth after 24 hours 05/21/17 22:00 Urine Culture - Preliminary Urine,Voided Assessment and Plan (1) Abdominal distension Current Visit: Yes Status: Acute Code(s): R14.0 - ABDOMINAL DISTENSION ( GASEOUS) SNOMED Code(s): 24758533 (2) Ascites Current Visit: Yes Status: Acute Code(s): R18.8 - OTHER ASCITES SNOMED Code(s): 867255799 (3) Colon cancer Current Visit: Yes Status: Acute Code(s): C18.9 - MALIGNANT NEOPLASM OF COLON, UNSPECIFIED SNOMED Code(s): 046173490 (4) UTI (urinary tract infection) Current Visit: Yes Status: Acute Code(s): N39.0 - URINARY TRACT INFECTION, SITE NOT SPECIFIED SNOMED Code(s): 27518276 Plan: Assessment and Recs: 1. Metastatic Colon Cancer to Liver: - Progressive disease, started second line therapy this week with FOLFOX and Avastin - CBC and CMP monitoring daily please - Symptom Management and supportive Care 2. Abdominal Ascites/Distention - - Schedule IR for PAracentesis both Therapeutic and Diagnostic - Check Culture and Cytology and Albumin on para fluid please Physician Attestation: I have completed the full history and physical of this patient and discussed and agree with the above disctation by Mya Silva TELEVISION STATION MANAGER, Documented as a scribe
--- NOTE | 2017-05-22 19:10 | US ---
EXAMINATION TYPE: US venous doppler duplex LE DATE OF EXAM: 05/22/2017 6:56 PM COMPARISON: NONE CLINICAL HISTORY: leg swelling asymmetrical. Edema SIDE PERFORMED: Bilateral TECHNIQUE: The lower extremity deep venous system is examined utilizing real time linear array sonog bailey with graded compression, doppler sonography and color-flow sonography. VESSELS IMAGED: External Iliac Vein (EIV) Common Femoral Vein Deep Femoral Vein Greater Saphenous Vein * Femoral Vein Popliteal Vein Small Saphenous Vein * Proximal Calf Veins (* superficial vessels) Right Leg: Negative for DVT Left Leg: Negative for DVT No evidence of DVT bilateral legs. IMPRESSION: Normal exam. No evidence of deep venous thrombosis in both legs.
[2017-05-23] MEDS: ONDANSETRON 4 MG/2 ML VIAL IVP PRN ×3 (05:27→20:27)
[2017-05-23] MEDS: MORPHINE SULFATE 4MG/4ML SYRG IV PRN (05:30)
[2017-05-23] MEDS: PANTOPRAZOLE 40 MG/10 ML VIAL IV SCH (08:07)
[2017-05-23] MEDS: FERROUS SULFATE 325 MG TAB PO SCH (08:08)
[2017-05-23] MEDS: SODIUM CHLORIDE 0.9% 1,000 ML IV SCH ×2 (08:08→17:41)
--- NOTE | 2017-05-23 08:13 | ECHOF ---
Referral Reason:r/o pericardial effusion MEASUREMENTS -------- HEIGHT: 160.0 cm WEIGHT: 53.1 kg BP: FINDINGS -------- Resting tachycardia (HR>100bpm). This was a technically good study. Limited Study for assessment of pericardial effusion. Overall left ventricular systolic function is normal with, an EF between 55 - 60 %. There is a trivial pericardial effusion present. CONCLUSIONS -------- 1. Resting tachycardia (HR>100bpm). 2. This was a technically good study. 3. Limited Study for assessment of pericardial effusion. 4. Overall left ventricular systolic function is normal with, an EF between 55 - 60 %. 5. There is a trivial pericardial effusion present. AERIAL ERECTOR: Hayes Guaman RDCS
[2017-05-23 10:32] LABS: Anisocytosis Slight; Basophils % (A) 0 %; Eosinophils % (A) 0 %; HCT 31.7 % (34.0-46.0); HGB 9.1 gm/dL (11.4-16.0); Hypochromasia Marked; Lymphocytes # (A) 0.2 k/uL (1.0-4.8); Lymphocytes % (A) 2 %; MCH 27.5 pg (25.0-35.0); MCHC 28.6 g/dL (31.0-37.0); MCV 96.3 fL (80.0-100.0); Macrocytosis Slight; Mean Platelet Volume 7.3; Monocytes # (A) 0.2 k/uL (0-1.0); Monocytes % (A) 2 %; Neutrophils # (A) 7.5 k/uL (1.3-7.7); Neutrophils % (A) 95 %; Platelet Count 453 k/uL (150-450); RBC 3.29 m/uL (3.80-5.40); RDW 18.7 % (11.5-15.5); WBC 7.9 k/uL (3.8-10.6)
[2017-05-23 10:40] LABS: INR 1.5 (<1.2); Prothrombin Time 13.8 sec (9.0-12.0)
[2017-05-23 10:46] LABS: Albumin 2.5 g/dL (3.5-5.0); Anion Gap 15 mmol/L; Calcium 8.2 mg/dL (8.4-10.2); Carbon Dioxide 19 mmol/L (22-30); Chloride 107 mmol/L (98-107); Glucose 91 mg/dL (74-99); Sodium 141 mmol/L (137-145); Total Bilirubin 1.2 mg/dL (0.2-1.3); Total Protein 5.5 g/dL (6.3-8.2)
[2017-05-23 10:51] LABS: ALT 24 U/L (9-52); AST 121 U/L (14-36); Alkaline Phosphatase 401 U/L (38-126); Blood Urea Nitrogen 11 mg/dL (7-17); Potassium 4.1 mmol/L (3.5-5.1)
[2017-05-23] MEDS: MORPHINE ORAL SOLN 10 MG/5 ML CUP PO PRN ×2 (13:23→20:27)
[2017-05-23] MEDS: ENOXAPARIN 40 MG/0.4 ML SYRINGE SQ SCH (13:24)
--- NOTE | 2017-05-23 13:35 | US ---
Therapeutic and diagnostic paracentesis. DATE OF EXAM: 05/23/2017 CLINICAL HISTORY: Ascites The procedure was discussed with the patient. The risks, complications, benefits, and alternatives we re discussed and any questions were answered. Informed consent was obtained. The patient was placed s upine on the ultrasound table and prepped and draped in the usual sterile fashion. All elements of maximal barrier technique were utilized. Under ultrasound guidance, access into the left lower quadrant was obtained, via the paracentesis catheter system and direct ultrasound guidance . Approximately 2 liters of straw-colored fluid was removed. Sample sent to pathology for analysis. The patient was stable throughout the procedure and remained stable upon discharge from Department of Ra diology. IMPRESSION: Successful paracentesis under ultrasound guidance.
--- NOTE | 2017-05-23 13:57 | P.PN ---
Subjective Progress Note Date: 05/23/17 Principal diagnosis: Patient seen and examined in follow-up of Tchycardia, abdominal distention and ascites Patient seen and examined today, patient continues to be confident that she is doing well and tolerating or current therapy. Tolerating by mouth intake however she is nothing by mouth today awaiting paracentesis. Reports that her colostomy is functional no evidence of bleeding. Denies any chest pain or trouble breathing at this time. Afebrile Objective - Vital Signs Vital signs: Vital Signs Temp 98 F 05/23/17 07:05 Pulse 132 H 05/23/17 12:23 Resp 16 05/23/17 12:23 BP 139/99 05/23/17 12:23 Pulse Ox 96 05/23/17 12:23 Intake & Output 05/22/17 05/23/17 05/23/17 18:59 06:59 18:59 Intake Total 800 1260 Balance 800 1260 Weight 53.5 kg 54.5 kg Intake: IV 1200 Sodium Chloride 0.9% 1, 1200 000 ml @ 100 mls/hr IV . Q10H [facility] Rx#:[id number] Intake, IV Titration 800 Amount Sodium Chloride 0.9% 1, 800 000 ml @ 100 mls/hr IV . Q10H [facility]OS Rx#:[id number] Oral 60 Other: Voiding Method Toilet Toilet Toilet # Voids 1 - Exam Constitutional: vital signs stable, Not in acute distress, pleasant, conversant, no asterixis, no jaundice Lungs: Clear to auscultation bilaterally , normal respiratory effort Cardiovascular: Tachycardia, regular rhythm, no murmurs, no gallops, no rubs, bilateral leg +2 peripheral edema Gastrointestinal: Abdomen distended, no tenderness to palpation, palpable multiple masses intra-abdominally, enlarged liver nodular, colostomy bag in place with yellowish brownish stool liquid in nature no bleeding Extremities: No digital cyanosis peripheral pulses palpable and equal over bilateral radial arteries and dorsalis pedis artery, no calf muscle tenderness Psych: Alert, oriented to place, person and time, appropriate affect, intact judgment - Labs CBC & Chem 7: 05/23/17 10:08 05/23/17 10:08 Labs: Abnormal Lab Results - Last 24 Hours (Table) 05/23/17 05/23/17 05/23/17 Range/Units 10:08 10:08 10:08 RBC 3.29 L (3.80-5.40) m/uL Hgb 9.1 L (11.4-16.0) gm/dL Hct 31.7 L (34.0-46.0) % MCHC 28.6 L (31.0-37.0) g/dL RDW 18.7 H (11.5-15.5) % Plt Count 453 H (150-450) k/uL Lymphocytes # 0.2 L (1.0-4.8) k/uL PT 13.8 H (9.0-12.0) sec INR 1.5 H (<1.2) Carbon Dioxide 19 L (22-30) mmol/L Creatinine 0.44 L (0.52-1.04) mg/dL Calcium 8.2 L (8.4-10.2) mg/dL AST 121 H (14-36) U/L Alkaline Phosphatase 401 H (38-126) U/L Total Protein 5.5 L (6.3-8.2) g/dL Albumin 2.5 L (3.5-5.0) g/dL Microbiology - Last 24 Hours (Table) 05/21/17 11:35 Blood Culture - Preliminary Blood No Growth after 48 hours 05/21/17 22:00 Urine Culture - Final Urine,Voided Assessment and Plan Assessment: 41-year-old female with history of neurofibromatosis type I, 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 Status post diverting colostomy. Presented due to significant abdominal distention and constipation of 2 days' duration along with vomiting post meals, this has resolved since she passed bowel movement through her colostomy. She is tolerating by mouth intake now with liquid diet. Denies any GI bleeding. Denies any vomiting. Denies any chest pain or trouble breathing. Denies any abdominal pain. Plan for paracentesis today (this was rescheduled from yesterday). Patient continues to receive her second line chemotherapy FOLFOX. Patient also having tachycardia could be reactive sympathetic drive. 2-D echocardiogram performed did not show evidence of pericardial effusion. EKG still pending. Thyroid function test and unremarkable. Patient had paracentesis performed today 2 L were removed sent for cultures and cytology. She also complained of some oral lesions and was started her on nystatin and discuss lidocaine Plan: #Stage IV metastatic colon cancer #Constipation without bowel obstruction #Ascites, due to metastatic colon cancer to the liver with portal hypertension, hypoalbuminemia, and evidence of intrahepatic IVC compression Currently on chemotherapy second line with FOLFOX Patient wishes to continue aggressive management Oncology following Supportive care Tolerated paracentesis with 2 L removed pending further testingy Discontinue IV fluids Patient tolerating by mouth intake on a regular diet, supplemental ensures Vascular surgery evaluated the patient for intrahepatic IVC compression, no recommendations for any immediate surgical intervention at this point #Bilateral leg edema more on the left than the right This is most likely due to hypoalbuminemia and inferior vena cava compression intrahepatically The rest of his ultrasound did not show any evidence of acute DVT #Neurofibromatosis type I #DVT prophylaxis on Lovenox #Chronic anemia secondary to colon cancer chronic disease Patient denies any active bleeding Continue with supplemental iron therapy by mouth #Lactic acidosis, mild is most likely due to advanced liver disease and inability to clear Continue to monitor liver function, currently stable #Severe protein calorie malnutrition Encouraged increased by mouth intake Supplemental ensures #Tachycardia 2-D echocardiogram did not show any pericardial effusion Ferrous function tests unremarkable This is most likely reactive due to increased sympathetic drive I will consider low-dose metoprolol Possible discharge within 24 hours, pending PT evaluation
[2017-05-23] MEDS: KETOROLAC 30 MG/ML 1 ML VIAL IVP PRN ×2 (15:59→22:36)
--- NOTE | 2017-05-23 16:51 | P.PN ---
Subjective Progress Note Date: 05/23/17 Principal diagnosis: Metaststic Colon Cancer Radha seen in follow-up, she denies any pain. Her chemotherapy pump for first cycle is complete. She has not had any vomiting, little output, awaiting for paracentesis today. Does complain of some mouth pain Objective - Vital Signs Vital signs: Vital Signs Temp 98 F 05/23/17 07:05 Pulse 132 H 05/23/17 12:23 Resp 16 05/23/17 12:23 BP 139/99 05/23/17 12:23 Pulse Ox 96 05/23/17 12:23 Intake & Output 05/22/17 05/23/17 05/23/17 18:59 06:59 18:59 Intake Total 800 1260 Balance 800 1260 Weight 53.5 kg 54.5 kg Intake: IV 1200 Sodium Chloride 0.9% 1, 1200 000 ml @ 100 mls/hr IV . Q10H [facility] Rx#:[id number] Intake, IV Titration 800 Amount Sodium Chloride 0.9% 1, 800 000 ml @ 100 mls/hr IV . Q10H [facility] Rx#:[id number] Oral 60 Other: Voiding Method Toilet Toilet Toilet # Voids 1 2 # Bowel Movements 1 - Constitutional Constitutional Comment(s): Appears chronically ill, thin, cachexia General appearance: Present: cooperative, thin - EENT Eyes: Present: EOMI, PERRLA, dentition normal ENT: Present: NA/AT, other, thrush - Neck Neck: Present: lymphadenopathy, normal ROM - Respiratory Details: Supple, trachea midline Respiratory: bilateral: diminished (Bilateral lower lobes secondary to large abdominal Ascites) - Cardiovascular Heart rate: 116 Rhythm: regular Heart sounds: normal: S1, S2 - Peripheral edema leg Peripheral Edema: bilateral: 2+ - Gastrointestinal General gastrointestinal: Present: distended, hepatomegaly, normal bowel sounds , tenderness - Integumentary Integumentary: Present: pale - Neurologic Neurologic Comment(s): No focal defects Neurologic: Present: CNII-XII intact - Musculoskeletal Musculoskeletal: Present: generalized weakness, strength equal bilaterally - Psychiatric Psychiatric: Present: A&O x's 3, appropriate affect, intact judgment & insight - Labs CBC & Chem 7: 05/23/17 10:08 05/23/17 10:08 Labs: Abnormal Lab Results - Last 24 Hours (Table) 05/23/17 05/23/17 05/23/17 Range/Units 10:08 10:08 10:08 RBC 3.29 L (3.80-5.40) m/uL Hgb 9.1 L (11.4-16.0) gm/dL Hct 31.7 L (34.0-46.0) % MCHC 28.6 L (31.0-37.0) g/dL RDW 18.7 H (11.5-15.5) % Plt Count 453 H (150-450) k/uL Lymphocytes # 0.2 L (1.0-4.8) k/uL PT 13.8 H (9.0-12.0) sec INR 1.5 H (<1.2) Carbon Dioxide 19 L (22-30) mmol/L Creatinine 0.44 L (0.52-1.04) mg/dL Calcium 8.2 L (8.4-10.2) mg/dL AST 121 H (14-36) U/L Alkaline Phosphatase 401 H (38-126) U/L Total Protein 5.5 L (6.3-8.2) g/dL Albumin 2.5 L (3.5-5.0) g/dL Microbiology - Last 24 Hours (Table) 05/21/17 11:35 Blood Culture - Preliminary Blood No Growth after 48 hours 05/21/17 22:00 Urine Culture - Final Urine,Voided Assessment and Plan (1) Abdominal distension Current Visit: Yes Status: Acute Code(s): R14.0 - ABDOMINAL DISTENSION ( GASEOUS) SNOMED Code(s): 52795809 (2) Ascites Current Visit: Yes Status: Acute Code(s): R18.8 - OTHER ASCITES SNOMED Code(s): 046054867 (3) Colon cancer Current Visit: Yes Status: Acute Code(s): C18.9 - MALIGNANT NEOPLASM OF COLON, UNSPECIFIED SNOMED Code(s): 060108907 (4) UTI (urinary tract infection) Current Visit: Yes Status: Acute Code(s): N39.0 - URINARY TRACT INFECTION, SITE NOT SPECIFIED SNOMED Code(s): 19662295 Plan: Assessment and Recs: 1. Metastatic Colon Cancer to Liver: - Progressive disease, started second line therapy this week with FOLFOX and Avastin (Completed 05/22/17 cycle one) - CBC and CMP monitoring daily please - Symptom Management and supportive Care 2. Abdominal Ascites/Distention - - Schedule IR for PAracentesis both Therapeutic and Diagnostic - Completed - 2 Liters of FLuid removed, awaiting cytology, albumin and culture - Check Culture and Cytology and Albumin on para fluid please 3. Mucocytis/Oral Thrush - Kools solution with nystatin Physician Attestation: I have completed the full history and physical of this patient and discussed and agree with the above disctation by Mya Silva KEYBOARD INSTRUMENT REPAIRER, Documented as a scribe
[2017-05-23] MEDS: LIDOCAINE VISCOUS 2% 15 ML CUP MUCOUS MEM SCH (17:41)
[2017-05-23] MEDS: NYSTATIN 100,000 UNIT/ML SUSP 500,000 UNIT/5 ML CUP PO SCH ×3 (17:42→22:38)
[2017-05-23] MEDS: METOPROLOL TARTRATE 25 MG TAB PO SCH (19:23)
[2017-05-23] MEDS: MAG HYDROX/AL HYDROX/SIMETH 30 ML, diphenhydrAMINE ELIXIR 75 MG, LIDOCAINE VISCOUS 30 ML PO SCH ×3 (22:37)
[2017-05-24] MEDS: ONDANSETRON 4 MG/2 ML VIAL IVP PRN (07:30)
[2017-05-24] MEDS: KETOROLAC 30 MG/ML 1 ML VIAL IVP PRN (07:35)
[2017-05-24 07:39] LABS: Anisocytosis Slight; Basophils % (A) 0 %; Eosinophils # (A) 0.2 k/uL (0-0.7); Eosinophils % (A) 2 %; HGB 8.9 gm/dL (11.4-16.0); Hypochromasia Marked; Lymphocytes # (A) 0.2 k/uL (1.0-4.8); Lymphocytes % (A) 3 %; MCH 27.7 pg (25.0-35.0); MCHC 28.7 g/dL (31.0-37.0); MCV 96.5 fL (80.0-100.0); Macrocytosis Slight; Mean Platelet Volume 7.9; Monocytes # (A) 0.2 k/uL (0-1.0); Monocytes % (A) 2 %; Neutrophils # (A) 6.7 k/uL (1.3-7.7); Neutrophils % (A) 92 %; Platelet Count 389 k/uL (150-450); RBC 3.22 m/uL (3.80-5.40); RDW 18.5 % (11.5-15.5); WBC 7.3 k/uL (3.8-10.6)
[2017-05-24] MEDS: PANTOPRAZOLE 40 MG/10 ML VIAL IV SCH (07:39)
[2017-05-24 08:01] LABS: ALT 21 U/L (9-52); AST 79 U/L (14-36); Albumin 2.3 g/dL (3.5-5.0); Alkaline Phosphatase 409 U/L (38-126); Anion Gap 13 mmol/L; Blood Urea Nitrogen 12 mg/dL (7-17); Calcium 8.1 mg/dL (8.4-10.2); Carbon Dioxide 21 mmol/L (22-30); Chloride 107 mmol/L (98-107); Glucose 67 mg/dL (74-99); Potassium 3.9 mmol/L (3.5-5.1); Sodium 141 mmol/L (137-145); Total Bilirubin 1.3 mg/dL (0.2-1.3); Total Protein 5.1 g/dL (6.3-8.2)
[2017-05-24] MEDS: LIDOCAINE VISCOUS 2% 15 ML CUP MUCOUS MEM SCH ×2 (08:24→12:26)
[2017-05-24] MEDS: ENOXAPARIN 40 MG/0.4 ML SYRINGE SQ SCH (08:25)
[2017-05-24] MEDS: FERROUS SULFATE 325 MG TAB PO SCH (08:25)
[2017-05-24] MEDS: NYSTATIN 100,000 UNIT/ML SUSP 500,000 UNIT/5 ML CUP PO SCH ×2 (08:26→12:26)
[2017-05-24] MEDS: MAG HYDROX/AL HYDROX/SIMETH 30 ML, diphenhydrAMINE ELIXIR 75 MG, LIDOCAINE VISCOUS 30 ML PO SCH ×3 (08:26)
[2017-05-24] MEDS: METOPROLOL TARTRATE 25 MG TAB PO SCH (08:26)
[2017-05-24 11:17] VITALS: BMI 21.9
[2017-05-24] MEDS ORDERED: FUROSEMIDE 20 MG TAB PO SCH (11:45)
[2017-05-24] MEDS: MORPHINE ORAL SOLN 10 MG/5 ML CUP PO PRN (12:26)
--- NOTE | 2017-05-24 12:43 | CONS ---
CONSULTATION This is a 41-year-old, pleasant female. She has been admitted to [facility] on oncologist's floor. I was consulted. Patient had a CT scan of the abdomen which showed some intrahepatic IVC compression and patient has a history of colon cancer stage IV with liver METS with ascites. Patient had an abdominal paracentesis done yesterday. Patient also has a colostomy. Patient was seen in her room. She has no nausea or vomiting. Her abdomen is distended. No evidence of jaundice. Femoral pulses are present. I have reviewed the CT scan and it showed some compression of the intrahepatic portion of the inferior IVC and the patient also has a liver METS. At this point, patient has no rule of surgical intervention. If she needs further evaluation, she should be going to tertiary center. I have discussed with Dr. Benoit, the hospitalist for this patient. MMODL / PANTERAN: [id number] /
[2017-05-24 12:56] VITALS: RESP 18
--- NOTE | 2017-05-24 12:57 | P.DS ---
Providers Date of admission: 05/21/17 15:59 Expected date of discharge: 05/24/17 Attending physician: Yue Gautam DO Consults: 05/21/17 16:28 Consult Physician Stat Consulting Provider: Blake Louis Consult Reason/Comments: Colon Ca, Mets, Ascites Do you want consulting provider notified?: Yes 05/21/17 17:02 Consult Physician Routine Consulting Provider: Vince Kelly Consult Reason/Comments: IVC compression Do you want consulting provider notified?: Yes Primary care physician: Cammie Henderson MD Hospital Course: Final diagnosis at discharge #Stage IV metastatic colon cancer to the liver #Constipation without bowel obstruction #Ascites, due to metastatic colon cancer to the liver with portal hypertension, hypoalbuminemia, and evidence of intrahepatic IVC compression #Bilateral leg edema due to hypoalbuminemia and inferior vena cava compression intrahepatically # Sinus tachycardia, reactive due to sympathetic overdrive Secondary diagnoses #Neurofibromatosis type I #Chronic anemia secondary to colon cancer chronic disease #Lactic acidosis, mild is most likely due to advanced liver disease and inability to clear #Severe protein calorie malnutrition Hospital course 41-year-old female with history of neurofibromatosis type I, 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 Status post diverting colostomy. Presented due to significant abdominal distention and constipation of 2 days' duration along with vomiting post meals, this has resolved since she passed bowel movement through her colostomy. She tolerated diet that was advanced gradually during this hospital stay. She was also complaining of abdominal distention for which she was found to have significant ascites, abdominal paracentesis under ultrasound guidance was performed in 2 L were taken out patient felt immediate relief after that. We'll continue the patient on Lasix after discharge. Follow up with oncology outpatient. Patient finished first cycle of second line treatment FOLFOX. Patient understands her disease process and continues to wish for aggressive management. She was also found to be tachycardic, cardiac workup including 2-D echocardiogram (no evidence of pericardial effusion), EKG(sinus tachycardia), thyroid function test were performed and were unremarkable except for sinus tachycardia. This was controlled with low-dose metoprolol which patient tolerated well. Ascites fluid cultures and cytology still pending, this was discussed with oncology service who cleared the patient for discharge and will follow-up on results of culture and cytology as an outpatient upon follow-up . She also complained of some oral lesions and was started her on nystatin , Maalox, and viscous lidocaine orally, she reported improvement with these measures. Bilateral leg edema and ascites is thought to be multifactorial due to intrahepatic IVC compression from the liver metastases, hypoalbuminemia, and disseminated intra- abdominal cancer. Compression stockings offered, patient to continue on Lasix. Venous duplex ultrasound of bilateral legs was performed no evidence of acute DVT. Vascular surgery evaluated the patient for intrahepatic IVC compression, no recommendations for any immediate surgical intervention at this point. Upon presentation to the ED patient was started on antibiotic for presumed UTI, however after I evaluated the patient she denied any urinary symptoms and her urine analysis was not reflective off a urine tract infection so antibiotics were stopped. Blood culture results urine culture results ascitic fluid Gram stain and ascitic fluid and aerobic cultures are negative to date Patient was seen and examined on day of discharge, she felt a lot of relief after the paracentesis, continues to tolerate diet. Denies any chest pain or trouble breathing denies any fevers or chills. Denies any abdominal pain. Constitutional: vital signs stable, Not in acute distress, pleasant, conversant, no asterixis, no jaundice Lungs: Clear to auscultation bilaterally , normal respiratory effort Cardiovascular: Normal S1 and S2 regular rate and rhythm, no murmurs, no gallops , no rubs, bilateral leg +1 peripheral edema Gastrointestinal: Abdominal distention improved, evidence of dilated superficial abdominal veins ,no tenderness to palpation, palpable multiple masses intra-abdominally, enlarged liver nodular, colostomy bag in place and functional Extremities: No digital cyanosis peripheral pulses palpable and equal over bilateral radial arteries and dorsalis pedis artery, no calf muscle tenderness Psych: Alert, oriented to place, person and time, appropriate affect, intact judgment Case discussed with oncology service who agreed on discharging the patient and to follow up outpatient with them. This was discussed with the patient who voiced agreement. Patient will be discharged in stable clinical condition to home. New prescriptions was sent to preferred pharmacy 40 minutes were spent discharging this patient, and more than 50% of the time was spent in counseling the patient and family and in coordinating care. Pertinent Studies: 2-D echocardiogram, preserved left ventricular ejection fraction, no evidence of pericardial effusion Procedures: Abdominal paracentesis 2 L were taken out Patient Condition at Discharge: Stable Plan - Discharge Summary Discharge Rx Participant: Yes New Discharge Prescriptions: New Lidocaine Viscous 2% [Xylocaine Viscous] 5 ml MUCOUS MEM AC-TID #100 ml Mag Hydrox/Al Hydrox/Simeth [Maalox] 30 ml PO TID #10 cup Metoprolol Tartrate [Lopressor] 25 mg PO BID #60 tab Nystatin 100,000 Unit/ml Susp [Mycostatin Oral Susp] 500,000 unit PO QID #20 cup Continue Ondansetron [Zofran] 4 mg PO QID PRN PRN Reason: Nausea Furosemide [Lasix] 20 mg PO DAILY Ferrous Sulfate [Iron (65 MG Elemental)] 325 mg PO DAILY Calcium Carbonate [Tums] 500 mg PO TID PRN PRN Reason: Heartburn Discontinued Doxycycline Hyclate 100 mg PO BID Acetaminophen Tab [Tylenol Tab] 650 mg PO Q6HR PRN PRN Reason: Pain HYDROcodone/APAP 10-325MG [[place] 10-325] 1 tab PO Q6H PRN PRN Reason: Pain Discharge Medication List Calcium Carbonate [Tums] 500 mg PO TID PRN 05/21/17 [History] Ferrous Sulfate [Iron (65 MG Elemental)] 325 mg PO DAILY 05/21/17 [History] Furosemide [Lasix] 20 mg PO DAILY 05/21/17 [History] Ondansetron [Zofran] 4 mg PO QID PRN 05/21/17 [History] Lidocaine Viscous 2% [Xylocaine Viscous] 5 ml MUCOUS MEM AC-TID #100 ml [Rx] Mag Hydrox/Al Hydrox/Simeth [Maalox] 30 ml PO TID #10 cup 05/24/17 [Rx] Metoprolol Tartrate [Lopressor] 25 mg PO BID #60 tab 05/24/17 [Rx] Nystatin 100,000 Unit/ml Susp [Mycostatin Oral Susp] 500,000 unit PO QID #20 cup 05/24/17 [Rx] Follow up Appointment(s)/Referral(s): Cammie Henderson MD [Primary Care Provider] - 1-2 days Marquez Joseph MD [STAFF PHYSICIAN] - 1 Week Patient Instructions/Handouts: Ascites (DC), Edema (GEN) Activity/Diet/Wound Care/Special Instructions: activity as tolerated , diet as tolerated Discharge Disposition: HOME SELF-CARE
[2017-05-24 15:46] VITALS: BP 158/98; PULSE 101; TEMP 97.2
== END 2017-05-24 16:55 | disposition home or self-care (01) | DRG 435 ==
LOC: EC 11:01 → 5ONC 15:59
PROVIDERS: ADMIT Internal Medicine; ATTEND Internal Medicine
PROC: 0W9G3ZX Drainage of Peritoneal Cavity, Percutaneous Approach, Diagnostic (ICD-10-PCS; principal; 2017-05-23)
DX: C78.7 Secondary malignant neoplasm of liver and intrahepatic bile duct (principal); E43 Unspecified severe protein-calorie malnutrition; J90 Pleural effusion, not elsewhere classified; B37.0 Candidal stomatitis; K76.6 Portal hypertension; E87.2 Acidosis; E88.09 Other disorders of plasma-protein metabolism, not elsewhere classified; R18.8 Other ascites; I87.1 Compression of vein; C18.9 Malignant neoplasm of colon, unspecified; N39.0 Urinary tract infection, site not specified; C78.89 Secondary malignant neoplasm of other digestive organs; Q85.01 Neurofibromatosis, type 1; D63.0 Anemia in neoplastic disease; K59.00 Constipation, unspecified; R00.0 Tachycardia, unspecified; Z92.21 Personal history of antineoplastic chemotherapy; Z93.3 Colostomy status; Z88.0 Allergy status to penicillin; Z88.8 Allergy status to other drugs, medicaments and biological substances; Z87.891 Personal history of nicotine dependence; Z98.890 Other specified postprocedural states; Z79.899 Other long term (current) drug therapy; Z68.21 Body mass index [BMI] 21.0-21.9, adult; Z82.0 Family history of epilepsy and other diseases of the nervous system
CPT/HCPCS: 36415; 49083; 74018; 74177; 80053; 81001; 82042; 82150; 83605; 83690; 83735; 84100; 84443; 85025; 85610; 87040; 87070; 87075; 87086; 87205; 88108; 88305; 93005; 93308; 93970; 96361; 96365; 96366; 96375; 99285

== ENCOUNTER 2017-06-07 18:32 | Inpatient (IN) | payer OTHER ==
[2017-06-07] MEDS ORDERED: ACETAMINOPHEN TAB 500 MG TAB PO STA (18:59)
[2017-06-07] MEDS ORDERED: RX INFO: IV CONTRAST WAS GIVEN 1 EACH MISC MISCELLANE PRN (19:11)
[2017-06-07] MEDS: SODIUM CHLORIDE 0.9% 500 ML IV SCH ×3 (19:15→21:21)
[2017-06-07] MEDS: SODIUM CHLORIDE 0.9% 1,000 ML IV SCH (19:16)
[2017-06-07 19:31] LABS: Anisocytosis Slight; Basophils % (A) 0 %; Eosinophils % (A) 0 %; HCT 30.2 % (34.0-46.0); HGB 9.2 gm/dL (11.4-16.0); Hypochromasia Moderate; Lymphocytes # (A) 0.3 k/uL (1.0-4.8); Lymphocytes % (A) 4 %; MCH 28.1 pg (25.0-35.0); MCHC 30.5 g/dL (31.0-37.0); MCV 92.1 fL (80.0-100.0); Mean Platelet Volume 7.7; Monocytes # (A) 0.9 k/uL (0-1.0); Monocytes % (A) 12 %; Neutrophils # (A) 6.2 k/uL (1.3-7.7); Neutrophils % (A) 80 %; Platelet Count 478 k/uL (150-450); RBC 3.27 m/uL (3.80-5.40); RDW 17.9 % (11.5-15.5); WBC 7.7 k/uL (3.8-10.6)
[2017-06-07 19:42] LABS: ALT 24 U/L (9-52); AST 64 U/L (14-36); Albumin 2.6 g/dL (3.5-5.0); Alkaline Phosphatase 354 U/L (38-126); Anion Gap 13 mmol/L; Blood Urea Nitrogen 10 mg/dL (7-17); Calcium 8.3 mg/dL (8.4-10.2); Carbon Dioxide 27 mmol/L (22-30); Chloride 103 mmol/L (98-107); Glucose 69 mg/dL (74-99); INR 1.4 (<1.2); Magnesium 1.7 mg/dL (1.6-2.3); Partial Thromboplastin Time 27.3 sec (22.0-30.0); Sodium 143 mmol/L (137-145); Total Bilirubin 0.8 mg/dL (0.2-1.3); Total Protein 5.3 g/dL (6.3-8.2)
[2017-06-07] MEDS ORDERED: VANCOMYCIN IV PER PHARMACY 1 EACH MISC MISCELLANE PRN (20:28)
--- NOTE | 2017-06-07 20:34 | ED ---
Abdominal Pain HPI - General Chief Complaint: Abdominal Pain Stated Complaint: Abd pain Time Seen by Provider: 06/07/17 18:37 Source: patient, EMS Mode of arrival: EMS Limitations: no limitations - History of Present Illness Initial Comments: Patient is a 41-year-old female with a history of stage IV colon cancer presented to the emergency department for abdominal pain. The patient's is bedside and states that for the last couple days, the patient's heart rate has been ranging from 130 to 152 bpm. Yesterday, the patient's physician increased her metoprolol dose and today she started having rectal pain as well as nausea and vomiting 1.. She is also currently on chemotherapy with her last session 2.5 weeks ago. This abdominal pain is described as sharp , diffuse, constant without radiation. She also has paracentesis scheduled for Saturday and states that she has been having fevers and chills as well. She denies any chest pain or shortness of breath. - Related Data Home Medications Medication Instructions Recorded Confirmed Calcium Carbonate [Tums] 500 mg PO TID PRN 05/21/17 06/07/17 Ferrous Sulfate [Iron (65 MG 325 mg PO DAILY 05/21/17 06/07/17 Elemental)] Furosemide [Lasix] 20 mg PO DAILY 05/21/17 06/07/17 Ondansetron [Zofran] 4 mg PO QID PRN 05/21/17 06/07/17 Diphenoxylate HCl/Atropine 1 tab PO Q6HR PRN 06/07/17 06/07/17 [Lomotil 2.5-0.025 mg Tablet] HYDROcodone/APAP 5-325MG [Malone 1 tab PO BID PRN 06/07/17 06/07/17 5-325] Previous Rx's Medication Instructions Recorded Lidocaine Viscous 2% [Xylocaine 5 ml MUCOUS MEM AC-TID #100 ml 05/24/17 Viscous] Mag Hydrox/Al Hydrox/Simeth 30 ml PO TID #10 cup 05/24/17 [Maalox] Metoprolol Tartrate [Lopressor] 25 mg PO BID #60 tab 05/24/17 Nystatin 100,000 Unit/ml Susp 500,000 unit PO QID #20 cup 05/24/17 [Mycostatin Oral Susp] Allergies Allergy/AdvReac Type Severity Reaction Status Date / Time Penicillins Allergy Rapid Verified 06/07/17 18:55 Heart Rate promethazine [From Phenergan] Allergy Rash/Hives Verified 06/07/17 18:55 metoclopramide [From Reglan] AdvReac Dyspnea Verified 06/07/17 18:55 Review of Systems ROS Statement: Those systems with pertinent positive or pertinent negative responses have been documented in the HPI. Constitutional: Positive for chills, fatigue and fever. HENT: Negative for congestion. Respiratory: Negative for chest tightness, shortness of breath and wheezing. Cardiovascular: Negative for chest pain and palpitations. Gastrointestinal: Positive for abdominal pain. Negative for , diarrhea, positive for abdominal distention, nausea and vomiting. Genitourinary: Negative for dysuria. Musculoskeletal: Negative for back pain, neck pain and neck stiffness. Skin: Negative for color change. Neurological: Negative for dizziness, speech difficulty, weakness and light- headedness. Psychiatric/Behavioral: Negative for agitation and confusion. The patient is not nervous/anxious. ROS Other: All systems not noted in ROS Statement are negative. Past Medical History Past Medical History: Cancer Additional Past Medical History / Comment(s): stage 4 colon cancer-currently recieving chemo, neurofibromytosis History of Any Multi-Drug Resistant Organisms: None Reported Past Surgical History: Ablation, Orthopedic Surgery, Tonsillectomy Additional Past Surgical History / Comment(s): bowel resection-colostomy(pt stated her normal consistency of stool is pasty), rt ankle fatty tumor removed, mediport , uterine ablation Past Anesthesia/Blood Transfusion Reactions: No Reported Reaction Past Psychological History: No Psychological Hx Reported Smoking Status: Former smoker Past Alcohol Use History: None Reported Past Drug Use History: None Reported - Past Family History Father Family Medical History: Dementia Additional Family Medical History / Comment(s): dad from alzheimers Family Additional Family Medical History / Comment(s): Denies any family history of cancer or coronary artery disease General Exam - General Exam Comments Initial Comments: Physical Exam Constitutional: Pt is oriented to person, place, and time. Pt appears cachectic. No distress. HENT: Head: Normocephalic and atraumatic. Eyes: EOM are normal. Neck: Normal range of motion. Neck supple. Cardiovascular: Tachycardia is present;, regular rhythm, S1 normal, S2 normal and normal heart sounds. Exam reveals no gallop and no friction rub. No murmur heard. Pulmonary/Chest: Effort normal and breath sounds normal. No tachypnea and no bradypnea. No respiratory distress. No wheezes or rales noted. Abdominal: Soft. Bowel sounds are normal. Pt exhibits no shifting dullness, no distension, no pulsatile liver, no abdominal bruit . There is no tenderness. There is no rigidity, no rebound, no guarding, no tenderness at McBurney's point and negative Roper's sign. Colostomy bag is present in the left lower quadrant. There is significant abdominal distention but no fluid waves. Musculoskeletal: Normal range of motion. Neurological: Pt is alert and oriented to person, place, and time. No cranial nerve deficit. Skin: Skin is warm and dry. No rash noted. Pt is not diaphoretic. No erythema. No pallor. Psychiatric: Pt has a normal mood and affect. Pt behavior is normal. Thought content normal. Limitations: no limitations Course Vital Signs 06/07/17 06/07/17 18:37 20:45 Temperature 100.9 F H 100.6 F H Pulse Rate 113 H 106 H Respiratory 16 18 Rate Blood Pressure 145/102 139/91 O2 Sat by Pulse 96 97 Oximetry Medical Decision Making - Medical Decision Making Laboratory studies revealed that there is no significant leukocytosis but there was elevation of lactic acid at 2.2. There is also mild transaminitis with AST measured at 64.: Phosphatase also elevated at 354. Influenza was not detected. CT of the abdomen was performed and showed hepatomegaly with multiple liver masses consistent with metastatic disease but no evidence of SBO. Patient was given 30 mL per KG bolus as well as blood cultures obtained. Patient was started on vancomycin and Zosyn and urinalysis was pending at time of disposition. Explained all labs and diagnostic test results and that we will admit patient to hospital. Pt is agreeable to plan and case has been discussed with Dr. Benoit and they agree to accept the pt. - Lab Data Result diagrams: 06/07/17 19:10 06/07/17 19:10 Lab Results 06/07/17 06/07/17 06/07/17 Range/Units 19:10 19:10 19:10 WBC 7.7 (3.8-10.6) k/uL RBC 3.27 L (3.80-5.40) m/uL Hgb 9.2 L (11.4-16.0) gm/dL Hct 30.2 L (34.0-46.0) % MCV 92.1 (80.0-100.0) fL MCH 28.1 (25.0-35.0) pg MCHC 30.5 L (31.0-37.0) g/dL RDW 17.9 H (11.5-15.5) % Plt Count 478 H (150-450) k/uL Neutrophils % 80 % Lymphocytes % 4 % Monocytes % 12 % Eosinophils % 0 % Basophils % 0 % Neutrophils # 6.2 (1.3-7.7) k/uL Lymphocytes # 0.3 L (1.0-4.8) k/uL Monocytes # 0.9 (0-1.0) k/uL Eosinophils # 0.0 (0-0.7) k/uL Basophils # 0.0 (0-0.2) k/uL Hypochromasia Moderate Anisocytosis Slight PT (9.0-12.0) sec INR (<1.2) APTT (22.0-30.0) sec Sodium 143 (137-145) mmol/L Potassium 3.0 L* (3.5-5.1) mmol/L Chloride 103 (98-107) mmol/L Carbon Dioxide 27 (22-30) mmol/L Anion Gap 13 mmol/L BUN 10 (7-17) mg/dL Creatinine 0.40 L (0.52-1.04) mg/dL Est GFR (CKD-EPI)AfAm >90 (>60 ml/min/1.73 sqM) Est GFR (CKD-EPI)NonAf >90 (>60 ml/min/1.73 sqM) Glucose 69 L (74-99) mg/dL Plasma Lactic Acid Malcolm 2.2 H* (0.7-2.0) mmol/L Calcium 8.3 L (8.4-10.2) mg/dL Magnesium 1.7 (1.6-2.3) mg/dL Total Bilirubin 0.8 (0.2-1.3) mg/dL AST 64 H (14-36) U/L ALT 24 (9-52) U/L Alkaline Phosphatase 354 H (38-126) U/L Troponin I (0.000-0.034) ng/mL Total Protein 5.3 L (6.3-8.2) g/dL Albumin 2.6 L (3.5-5.0) g/dL Urine Color Urine Appearance (Clear) Urine pH (5.0-8.0) Ur Specific [place] (1.001-1.035) Urine Protein (Negative) Urine Glucose (UA) (Negative) Urine Ketones (Negative) Urine Blood (Negative) Urine Nitrite (Negative) Urine Bilirubin (Negative) Urine Urobilinogen (<2.0) mg/dL Ur Leukocyte Esterase (Negative) Urine RBC (0-5) /hpf Urine WBC (0-5) /hpf Ur Squamous Epith Cells (0-4) /hpf Urine Bacteria (None) /hpf Urine Mucus (None) /hpf Influenza Type A RNA (Not Detectd) Influenza Type B (PCR) (Not Detectd) 06/07/17 06/07/17 06/07/17 Range/Units 19:10 19:10 19:10 WBC (3.8-10.6) k/uL RBC (3.80-5.40) m/uL Hgb (11.4-16.0) gm/dL Hct (34.0-46.0) % MCV (80.0-100.0) fL MCH (25.0-35.0) pg MCHC (31.0-37.0) g/dL RDW (11.5-15.5) % Plt Count (150-450) k/uL Neutrophils % % Lymphocytes % % Monocytes % % Eosinophils % % Basophils % % Neutrophils # (1.3-7.7) k/uL Lymphocytes # (1.0-4.8) k/uL Monocytes # (0-1.0) k/uL Eosinophils # (0-0.7) k/uL Basophils # (0-0.2) k/uL Hypochromasia Anisocytosis PT 13.0 H (9.0-12.0) sec INR 1.4 H (<1.2) APTT 27.3 (22.0-30.0) sec Sodium (137-145) mmol/L Potassium (3.5-5.1) mmol/L Chloride (98-107) mmol/L Carbon Dioxide (22-30) mmol/L Anion Gap mmol/L BUN (7-17) mg/dL Creatinine (0.52-1.04) mg/dL Est GFR (CKD-EPI)AfAm (>60 ml/min/1.73 sqM) Est GFR (CKD-EPI)NonAf (>60 ml/min/1.73 sqM) Glucose (74-99) mg/dL Plasma Lactic Acid Malcolm (0.7-2.0) mmol/L Calcium (8.4-10.2) mg/dL Magnesium (1.6-2.3) mg/dL Total Bilirubin (0.2-1.3) mg/dL AST (14-36) U/L ALT (9-52) U/L Alkaline Phosphatase (38-126) U/L Troponin I <0.012 (0.000-0.034) ng/mL Total Protein (6.3-8.2) g/dL Albumin (3.5-5.0) g/dL Urine Color Urine Appearance (Clear) Urine pH (5.0-8.0) Ur Specific [place] (1.001-1.035) Urine Protein (Negative) Urine Glucose (UA) (Negative) Urine Ketones (Negative) Urine Blood (Negative) Urine Nitrite (Negative) Urine Bilirubin (Negative) Urine Urobilinogen (<2.0) mg/dL Ur Leukocyte Esterase (Negative) Urine RBC (0-5) /hpf Urine WBC (0-5) /hpf Ur Squamous Epith Cells (0-4) /hpf Urine Bacteria (None) /hpf Urine Mucus (None) /hpf Influenza Type A RNA Not Detected (Not Detectd) Influenza Type B (PCR) Not Detected (Not Detectd) 06/07/17 Range/Units 20:15 WBC (3.8-10.6) k/uL RBC (3.80-5.40) m/uL Hgb (11.4-16.0) gm/dL Hct (34.0-46.0) % MCV (80.0-100.0) fL MCH (25.0-35.0) pg MCHC (31.0-37.0) g/dL RDW (11.5-15.5) % Plt Count (150-450) k/uL Neutrophils % % Lymphocytes % % Monocytes % % Eosinophils % % Basophils % % Neutrophils # (1.3-7.7) k/uL Lymphocytes # (1.0-4.8) k/uL Monocytes # (0-1.0) k/uL Eosinophils # (0-0.7) k/uL Basophils # (0-0.2) k/uL Hypochromasia Anisocytosis PT (9.0-12.0) sec INR (<1.2) APTT (22.0-30.0) sec Sodium (137-145) mmol/L Potassium (3.5-5.1) mmol/L Chloride (98-107) mmol/L Carbon Dioxide (22-30) mmol/L Anion Gap mmol/L BUN (7-17) mg/dL Creatinine (0.52-1.04) mg/dL Est GFR (CKD-EPI)AfAm (>60 ml/min/1.73 sqM) Est GFR (CKD-EPI)NonAf (>60 ml/min/1.73 sqM) Glucose (74-99) mg/dL Plasma Lactic Acid Malcolm (0.7-2.0) mmol/L Calcium (8.4-10.2) mg/dL Magnesium (1.6-2.3) mg/dL Total Bilirubin (0.2-1.3) mg/dL AST (14-36) U/L ALT (9-52) U/L Alkaline Phosphatase (38-126) U/L Troponin I (0.000-0.034) ng/mL Total Protein (6.3-8.2) g/dL Albumin (3.5-5.0) g/dL Urine Color Yellow Urine Appearance Clear (Clear) Urine pH 6.0 (5.0-8.0) Ur Specific [place] 1.013 (1.001-1.035) Urine Protein Trace H (Negative) Urine Glucose (UA) Negative (Negative) Urine Ketones Negative (Negative) Urine Blood Trace H (Negative) Urine Nitrite Negative (Negative) Urine Bilirubin Negative (Negative) Urine Urobilinogen 4.0 (<2.0) mg/dL Ur Leukocyte Esterase Negative (Negative) Urine RBC 3 (0-5) /hpf Urine WBC 5 (0-5) /hpf Ur Squamous Epith Cells 1 (0-4) /hpf Urine Bacteria Rare H (None) /hpf Urine Mucus Rare H (None) /hpf Influenza Type A RNA (Not Detectd) Influenza Type B (PCR) (Not Detectd) - EKG Data EKG Comments: EKG shows sinus tachycardia with rate of 107, WI interval 138, QRS 76, QTC 491. There is no significant ST depressions or elevations. Disposition Clinical Impression: Sepsis, Ascites, Abdominal pain, Hypokalemia Disposition: ADMITTED IP TO THIS [facility] Condition: Poor Referrals: Cammie Henderson MD [Primary Care Provider] - 1-2 days Decision to Admit Reason: Admit from EC Decision Date: 06/07/17 Decision Time: 20:50
--- NOTE | 2017-06-07 20:41 | CT ---
EXAMINATION TYPE: CT abdomen pelvis w con DATE OF EXAM: 06/07/2017 COMPARISON: 05/01/2017 HISTORY: colon ca, abdominal pain and distention CT DLP: 472.0 mGycm Automated exposure control for dose reduction was used. TECHNIQUE: Helical acquisition of images was performed from the lung bases through the pelvis. CONTRAST: Performed without Oral Contrast and with IV Contrast, patient injected with 100 mL of Isovue 300. FINDINGS: There are bilateral pleural effusions and larger on the right side. There is basilar pulmonary infilt rates and atelectasis and more on the right side. Liver is markedly enlarged with multiple variable sized masses that measure up to 12 cm. There are hy podense foci in the spleen as well. There is probably some adenopathy at the splenic hilum. I see no pancreatic mass. Bile ducts are not dilated. Gallbladder appears to be present. There is no adrenal mass. Kidneys show satisfactory contrast opacification. There is no hydronephrosi s. There is a large amount of ascites fluid. There are multiple enlarged mesenteric lymph nodes and m asses. The largest is posterior and measures 8 cm. There is lobulated masslike density in the anterio r abdomen. It is not clear if this is omental mass or thickened bowel. I do not see evidence for real l obstruction. I see no bony destructive process. IMPRESSION: HEPATOMEGALY WITH MULTIPLE LIVER MASSES CONSISTENT WITH METASTATIC DISEASE. THIS APPEARS UNCHANGED. BASILAR PULMONARY INFILTRATES AND ATELECTASIS. THERE IS INCREASED PLEURAL FLUID COMPARED TO OLD EXAM. ABDOMINAL MULTIPLE MASSES CONSISTENT WITH CARCINOMATOSIS THAT IS SIMILAR TO OLD EXAM. MASSIVE ASCITES .
[2017-06-07 20:47] LABS: Appearance,Urine Clear (Clear); Bacteria,Urine Rare /hpf; Bilirubin,Urine Negative (Negative); Blood,Urine Trace (Negative); Color,Urine Yellow; Glucose,Urine (UA) Negative (Negative); Ketones,Urine Negative (Negative); Leukocyte Esterase,Urine Negative (Negative); Mucus,Urine Rare /hpf; Nitrite,Urine Negative (Negative); Protein,Urine Trace (Negative); RBC,Urine 3 /hpf (0-5); Specific Gravity,Urine 1.013 (1.001-1.035); Squamous Epithelial Cell,Urine 1 /hpf (0-4); WBC,Urine 5 /hpf (0-5)
[2017-06-07] MEDS ORDERED: POTASSIUM BICARBONATE/CIT AC 20 MEQ TABLET.EFF PO ONE (20:51)
[2017-06-07] MEDS ORDERED: NALOXONE 0.4 MG/ML 1 ML VIAL IV PRN (20:52)
[2017-06-07] MEDS ORDERED: VANCOMYCIN 1,000 MG in SODIUM CHLORIDE 0.9% 250 ML IVPB ONE (21:00)
[2017-06-07 22:47] VITALS: BMI 18.4
[2017-06-07] MEDS: MORPHINE SULFATE 4 MG/0.8 ML SYRINGE (INJ) IV PRN (22:50)
[2017-06-08] MEDS ORDERED: PIPERACILLIN-TAZOBACTAM 3.375 GM in DEXTROSE/WATER 1 50ML.BAG IVPB SCH
[2017-06-08] MEDS ORDERED: DIPHENOX-ATROP 2.5-0.025 MG 1 EACH TAB PO PRN (02:29)
[2017-06-08] MEDS ORDERED: HYDROcodone/APAP 5-325MG 1 EACH TAB PO PRN (02:29)
[2017-06-08] MEDS ORDERED: POTASSIUM CHLORIDE ER 20 MEQ TAB.ER PO STA (03:04)
--- NOTE | 2017-06-08 04:37 | P.HPIM ---
History of Present Illness H&P Date: 06/07/17 Chief Complaint: Abdominal pain 41-year-old female well known to our service with history of stage IV colon cancer with metastases to the liver on second line chemotherapy FOLFOX last dose was 2.5 weeks ago. Patient presented today due to sudden onset abdominal pain described it as diffuse sharp stabbing pain more than 10 out of 10 in severity no specific relieving or aggravating factors, no radiation, associated with nausea and vomiting once, associated with fevers and chills. She never experienced similar pain before. Her visiting nurse has noticed that for the past couple days she was having increased tachycardia with heart rates ranging in the 130s to 150s for which she increased the dose of her metoprolol on Saturday after which the pain has started the patient decided to come to the hospital. Last paracentesis patient received was drink her last admission 2-1/2 weeks ago and she was scheduled for another session of paracentesis on 06/10/2017. Patient noticed that her belly is getting very large and distended and has started to bother her with eating and breathing to some degree. She otherwise denies any diarrhea through the colostomy but had no bowel movement on Saturday. Denies any bleeding. Patient denies any symptoms of upper respiratory infection, denies any coughing or shortness of breath. In the ED patient received a dose of vancomycin and Zosyn, patient reported that she is ALLERGIC to penicillin and that with cause her to break into hives however she seems to have received a dose of Zosyn in the ED with no immediate reaction yet. I discontinued her Zosyn at this point and notified the nurse to watch for any symptoms or signs of ALLERGIC reaction. Review of Systems Constitutional: Patient denies night sweating, denies significant weight changes Eyes: Patient denies visual changes, denies eye pain ENT: Patient denies ear pain, denies rhinorrhea, denies sore throat Cardiovascular: Patient denies chest pain, denies exertional dyspnea, reports leg edema however improved/admission, denies orthopnea, denies paroxysmal nocturnal dyspnea Respiratory:Patient denies cough, denies wheezing, denies shortness of breath Gastrointestinal: As per HPI Genitourinary: Patient denies dysuria, denies hematuria, denies changes in urinary habits, denies genital lesions Musculoskeletal: Patient denies muscle pain, denies joint pain Psychiatric: Patient denies changes in mood or memory, denies suicidal ideation, denies anxiety Endocrine: Patient denies heat intolerance, denies cold intolerance, denies excessive thirst, denies polyuria Neurological: Patient denies focal neurologic deficits, denies weakness, denies numbness, denies tingling Hem/Lymphatic: Patient denies bleeding tendency, denies bruising, denies swollen lymph glands Allergic/Immun: Patient denies recent allergic reactions Skin: Patient denies rashes, denies pruritis, denies ulcers Past Medical History Past Medical History: Cancer Additional Past Medical History / Comment(s): stage 4 colon cancer-currently recieving chemo, neurofibromytosis, tachycardia History of Any Multi-Drug Resistant Organisms: None Reported Past Surgical History: Ablation, Orthopedic Surgery, Tonsillectomy Additional Past Surgical History / Comment(s): bowel resection-colostomy(pt stated her normal consistency of stool is pasty), rt ankle fatty tumor removed, mediport , uterine ablation Past Anesthesia/Blood Transfusion Reactions: No Reported Reaction Past Psychological History: No Psychological Hx Reported Additional Psychological History / Comment(s): pt stated she and her family moved from [place] to [place] in oct 2016. lives with spouse and 3 children. pt is independant. Smoking Status: Former smoker Past Alcohol Use History: None Reported Additional Past Alcohol Use History / Comment(s): started smoking at age 18(1993 ) and quit(2009) smoked 1/4 ppd. Past Drug Use History: None Reported - Past Family History Father Family Medical History: Dementia Additional Family Medical History / Comment(s): dad from alzheimers Family Additional Family Medical History / Comment(s): Denies any family history of cancer or coronary artery disease Medications and Allergies Home Medications Medication Instructions Recorded Confirmed Type Calcium Carbonate [Tums] 500 mg PO TID PRN 05/21/17 06/07/17 History Ferrous Sulfate [Iron (65 MG 325 mg PO DAILY 05/21/17 06/07/17 History Elemental)] Furosemide [Lasix] 20 mg PO DAILY 05/21/17 06/07/17 History Ondansetron [Zofran] 4 mg PO QID PRN 05/21/17 06/07/17 History Lidocaine Viscous 2% [Xylocaine 5 ml MUCOUS MEM AC-TID #100 ml 05/24/17 Rx Viscous] Mag Hydrox/Al Hydrox/Simeth 30 ml PO TID #10 cup 05/24/17 06/07/17 Rx [Maalox] Metoprolol Tartrate [Lopressor] 25 mg PO BID #60 tab 05/24/17 06/07/17 Rx Nystatin 100,000 Unit/ml Susp 500,000 unit PO QID #20 cup 05/24/17 06/07/17 Rx [Mycostatin Oral Susp] Diphenoxylate HCl/Atropine 1 tab PO Q6HR PRN 06/07/17 06/07/17 History [Lomotil 2.5-0.025 mg Tablet] HYDROcodone/APAP 5-325MG [[place] 1 tab PO BID PRN 06/07/17 06/07/17 History 5-325] Allergies Allergy/AdvReac Type Severity Reaction Status Date / Time Penicillins Allergy Rapid Verified 06/07/17 18:55 Heart Rate promethazine [From Phenergan] Allergy Rash/Hives Verified 06/07/17 18:55 metoclopramide [From Reglan] AdvReac Dyspnea Verified 06/07/17 18:55 Physical Exam Vitals: Vital Signs Temp Pulse Pulse Resp BP BP Pulse Ox 06/07/17 22:32 97.8 F 99 16 138/93 96 06/07/17 21:31 98.6 F 98 18 145/95 98 06/07/17 20:45 100.6 F H 106 H 18 139/91 97 06/07/17 18:37 100.9 F H 113 H 16 145/102 96 Intake and Output 06/07/17 06/07/17 06/08/17 14:59 22:59 06:59 Other: Weight 47.174 kg Constitutional: No acute distress, conversant, pleasant, cachectic Eyes: Anicteric sclerae, moist conjunctiva, no lid-lag Pupils equal round reactive to light ENMT: NC/AT Oropharynx clear, no erythema, exudates Neck: Supple, FROM, no masses, or JVD No carotid bruits No thyromegaly Lungs: Clear to auscultation Clear to percussion Normal respiratory effort, no accessory muscle use Cardiovascular: Heart tachycardic, normal S1 and S2 No murmurs, gallops, or rubs Trace leg edema on the left compared to the right Abdominal: Severe distention, diffuse tenderness to palpation mainly over the right side of the belly, tender to percussion, no rebound tenderness no rigidity, abdomen moving with respiration, bowel sounds positive, colostomy bag in place and functional no evidence of bleeding, palpable liver nodular in nature, visible dilated blood vessels on the abdominal wall, no visible abdominal hernias, multiple palpable abdominal masses Skin: Multiple cutaneous lesions most likely fibromas with her history of neurofibromatosis Normal temperature, tone, texture, turgor No induration No rash, no erythema No ulcers Extremities: Capillary refill is immediate No digital cyanosis No clubbing Pedal pulses intact and symmetrical Radial pulses intact and symmetrical No calf tenderness Psychiatric: Alert and oriented to person, place and time Appropriate affect Fair judgment Neuro Muscles Strength 4/5 in all 4 extremities Sensation to light touch grossly present throughout Cranial nerves II-XII grossly intact No focal sensory deficits Lymphatics: no palpable cervical or supraclavicular lymph nodes Results CBC & Chem 7: 06/07/17 19:10 06/07/17 19:10 Labs: Abnormal Lab Results - Last 24 Hours (Table) 06/07/17 06/07/17 06/07/17 Range/Units 19:10 19:10 19:10 RBC 3.27 L (3.80-5.40) m/uL Hgb 9.2 L (11.4-16.0) gm/dL Hct 30.2 L (34.0-46.0) % MCHC 30.5 L (31.0-37.0) g/dL RDW 17.9 H (11.5-15.5) % Plt Count 478 H (150-450) k/uL Lymphocytes # 0.3 L (1.0-4.8) k/uL PT (9.0-12.0) sec INR (<1.2) Potassium 3.0 L* (3.5-5.1) mmol/L Creatinine 0.40 L (0.52-1.04) mg/dL Glucose 69 L (74-99) mg/dL Plasma Lactic Acid Malcolm 2.2 H* (0.7-2.0) mmol/L Calcium 8.3 L (8.4-10.2) mg/dL AST 64 H (14-36) U/L Alkaline Phosphatase 354 H (38-126) U/L Total Protein 5.3 L (6.3-8.2) g/dL Albumin 2.6 L (3.5-5.0) g/dL Urine Protein (Negative) Urine Blood (Negative) Urine Bacteria (None) /hpf Urine Mucus (None) /hpf 06/07/17 06/07/17 Range/Units 19:10 20:15 RBC (3.80-5.40) m/uL Hgb (11.4-16.0) gm/dL Hct (34.0-46.0) % MCHC (31.0-37.0) g/dL RDW (11.5-15.5) % Plt Count (150-450) k/uL Lymphocytes # (1.0-4.8) k/uL PT 13.0 H (9.0-12.0) sec INR 1.4 H (<1.2) Potassium (3.5-5.1) mmol/L Creatinine (0.52-1.04) mg/dL Glucose (74-99) mg/dL Plasma Lactic Acid Malcolm (0.7-2.0) mmol/L Calcium (8.4-10.2) mg/dL AST (14-36) U/L Alkaline Phosphatase (38-126) U/L Total Protein (6.3-8.2) g/dL Albumin (3.5-5.0) g/dL Urine Protein Trace H (Negative) Urine Blood Trace H (Negative) Urine Bacteria Rare H (None) /hpf Urine Mucus Rare H (None) /hpf Microbiology - Last 24 Hours (Table) 06/07/17 20:15 Urine Culture - Preliminary Urine,Voided Thrombosis Risk Factor Assmnt - Choose All That Apply Any of the Below Risk Factors Present?: No Other Risk Factors: Yes Each Risk Factor Represents 2 Points: Malignancy Other congenital or acquired thrombophilia - If yes, enter type in comment: No Thrombosis Risk Factor Assessment Total Risk Factor Score: 2 Thrombosis Risk Factor Assessment Level: Low Risk Assessment and Plan Assessment: 41-year-old female with history of neurofibromatosis type I and stage IV colon cancer with metastases to the liver status post diverting colostomy currently on second line chemotherapy with FOLFOX. Patient is presenting with recurrent abdominal distention most likely due to ascites, this time complaining of abdominal pain associated with fevers and chills, nausea and vomiting. Patient is admitted and started on enteric treatment for possible SBP, intervention radiology consulted for paracentesis diagnostic and therapeutic Plan: #Sepsis #possible Spontaneous bacterial peritonitis Discontinue Zosyn and Vanco Start Rocephin 2 g daily IR consult for paracentesis Ascitic fluid to be sent for cell count, culture, glucose, protein, LDH Cytology on ascitic fluid done 2-1/2 weeks ago was reviewed Symptomatic control of fevers and pain Computed tomography scan of the abdomen showed massive ascites otherwise no significant other changes compared to before #History of penicillin ALLERGY, patient reports hives Patient received a dose of Zosyn in the ED this has been discontinued RN was notified to monitor for symptoms and signs of ALLERGIC reaction Currently patient is asymptomatic #Sinus tachycardia, most likely reactive due to sympathetic drive Extensive workup done during last admission including 2-D echocardiogram of the heart, thyroid testing, multiple EKGs Patient continue with metoprolol at home dose. #Chronic anemia secondary to chronic disease Hemoglobin at around her baseline Patient denies any evidence of bleeding #DVT prophylaxis Continue with heparin subcu 3 times a day #Lactic acidosis resolved #Neurofibromatosis type I #Severe protein calorie malnutrition By mouth intake as tolerated Preformed a thorough record review from recent hospitalization 2-1/2 weeks ago where she was admitted for new onset ascites patient responded well to her management last time, where she received paracentesis successfully, she was also found to have sinus tachycardia during that admission Surrogate decision-maker: Patient has been CODE STATUS: Full code Discussed with: Patient, ER, RN Anticipated discharge: 48-[address]: Home A total of 55 minutes was spent on the care of this complex patient more than 50 % of the time was spent in counseling and care coordination.
[2017-06-08] MEDS ORDERED: VANCOMYCIN 750 MG in SODIUM CHLORIDE 0.9% 250 ML IVPB SCH ×4 (05:00)
[2017-06-08] MEDS: MORPHINE SULFATE 4 MG/0.8 ML SYRINGE (INJ) IV PRN ×3 (07:11→21:47)
[2017-06-08 07:54] LABS: Anisocytosis Slight; Basophils % (A) 0 %; Eosinophils % (A) 0 %; HCT 34.5 % (34.0-46.0); HGB 10.2 gm/dL (11.4-16.0); Hypochromasia Marked; Lymphocytes # (A) 0.3 k/uL (1.0-4.8); Lymphocytes % (A) 4 %; MCH 28.3 pg (25.0-35.0); MCHC 29.5 g/dL (31.0-37.0); MCV 95.9 fL (80.0-100.0); Macrocytosis Slight; Mean Platelet Volume 7.4; Monocytes # (A) 0.8 k/uL (0-1.0); Monocytes % (A) 10 %; Neutrophils # (A) 6.6 k/uL (1.3-7.7); Neutrophils % (A) 81 %; Platelet Count 492 k/uL (150-450); RDW 17.5 % (11.5-15.5); WBC 8.1 k/uL (3.8-10.6)
[2017-06-08 08:11] LABS: ALT 21 U/L (9-52); AST 64 U/L (14-36); Albumin 2.4 g/dL (3.5-5.0); Alkaline Phosphatase 325 U/L (38-126); Anion Gap 12 mmol/L; Blood Urea Nitrogen 11 mg/dL (7-17); Calcium 8.2 mg/dL (8.4-10.2); Carbon Dioxide 27 mmol/L (22-30); Chloride 106 mmol/L (98-107); Potassium 3.9 mmol/L (3.5-5.1); Sodium 145 mmol/L (137-145); Total Bilirubin 0.9 mg/dL (0.2-1.3); Total Protein 5.1 g/dL (6.3-8.2)
[2017-06-08 08:26] LABS: Glucose 42 mg/dL (74-99)
[2017-06-08] MEDS: HEPARIN SODIUM,PORCINE 5,000 UNIT/ML 1 ML VIAL SQ SCH ×2 (08:27→17:56)
[2017-06-08] MEDS: cefTRIAXone IN SWFI 2,000 MG/20 ML SYRINGE IVP SCH (08:27)
[2017-06-08] MEDS: NYSTATIN 100,000 UNIT/ML SUSP 500,000 UNIT/5 ML CUP PO SCH ×4 (08:27→21:54)
[2017-06-08] MEDS: FERROUS SULFATE 325 MG TAB PO SCH (08:27)
[2017-06-08] MEDS: METOPROLOL TARTRATE 25 MG TAB PO SCH ×2 (08:27→10:39)
[2017-06-08] MEDS: MAG HYDROX/AL HYDROX/SIMETH 30 ML CUP PO SCH ×3 (08:30→21:55)
[2017-06-08 08:49] LABS: Glucose,Whole Blood 45 mg/dL (75-99)
[2017-06-08] MEDS ORDERED: DEXTROSE 50%-WATER 50 ML SYRINGE IVP STA (09:04)
[2017-06-08] MEDS: DEXTROSE 5%-0.45% NACL 1,000 ML IV SCH ×2 (09:13→17:58)
[2017-06-08 09:35] LABS: Glucose,Whole Blood 50 mg/dL (75-99)
[2017-06-08] MEDS: LIDOCAINE VISCOUS 2% 15 ML CUP MUCOUS MEM SCH ×4 (09:44→17:56)
[2017-06-08 10:03] LABS: Glucose,Whole Blood 85 mg/dL (75-99)
[2017-06-08] MEDS ORDERED: FUROSEMIDE 10 MG/ML 4 ML VIAL IV STA (10:51)
--- NOTE | 2017-06-08 11:03 | CONS ---
CONSULTATION DATE OF SERVICE: 06/08/17 REQUESTING PHYSICIAN: Dr. Cammie Henderson. REASON FOR CONSULTATION: Abdominal pain, abdominal distention. HISTORY OF PRESENT ILLNESS: The patient is a 41-year-old pleasant white female with stage IV colon cancer and liver metastasis, who is undergoing second-line chemotherapy that started 3 weeks ago. She presents to the hospital with abdominal pain, abdominal distention for the last 3-4 days. The patient was recently admitted to hospital 2 weeks ago at which time she was noted to have abdominal distention, underwent large volume paracentesis, and approximately 2 L of fluid was drained. Cytology was negative. The patient states that after the paracentesis, she felt better, but for the last 3-4 days, she started having worsening abdominal distention. She was scheduled for an outpatient paracentesis for this coming Saturday, but in the meantime, she became short of breath, extremely weak, tired, had some nausea, vomiting and came to the emergency room and subsequently admitted to the hospital for further evaluation. This morning, she states that the abdomen is head still operator. The abdomen feels very uncomfortable. She reports no fever, chills, night sweats. PAST MEDICAL HISTORY: Significant for metastatic colon cancer, presently on chemotherapy. PAST SURGICAL HISTORY: Colostomy, tonsillectomy, port placement. MEDICATIONS: At home include TUMS, Zofran, Lasix, Maalox, Lopressor, Adams, Lomotil, nystatin. ALLERGIES: TO PENICILLIN, PHENERGAN, AND REGLAN. SOCIAL HISTORY: Chronic smoker but quit many years ago. No alcohol use. FAMILY HISTORY: Father had dementia. REVIEW OF SYSTEMS: Cardiopulmonary: Complains of some shortness of breath. GENITOURINARY: No dysuria or hematuria. Musculoskeletal: Unremarkable. Skin unremarkable. Endocrine unremarkable. Psychiatric unremarkable. Neurology unremarkable. ENT vision unremarkable. Constitutional: Progressive weight loss, weak and tired. PHYSICAL EXAMINATION: She appears somewhat cachectic. VITAL SIGNS: Blood pressure 145/95, pulse 98, temperature 98. HEENT examination unremarkable. Conjunctivae pink. Sclerae anicteric. Oral cavity no lesions. Neck: No jugular venous distention or lymph node enlargement. Chest was clear to auscultation. HEART: Regular rate and rhythm. Abdomen was distended. It was very tympanic, bag on the left side, with a small amount of stool. There was some free fluid noted, there was moderate amount, of free fluid noted. Some shifting dullness. Extremities: No pedal edema. Neuro: She is alert and oriented x3. No focal deficits. LAB: From today WBC 8.1, hemoglobin 10.2, platelets are 492, AST 64, ALT 21, alkaline phosphatase 325, T bilirubin is 0.9. IMPRESSION: 1. Abdominal pain/abdominal distention secondary to ascites. The patient was empirically started on antibiotics for possible SBP. 2. Metastatic colon cancer with multiple liver METS for which she is undergoing chemotherapy, second-line chemotherapy that was started 3 weeks ago. 3. Elevated LFTs, especially alkaline phosphatase related to infiltrative liver disease from metastasis. RECOMMENDATIONS: 1. Continue with antibiotics. 2. The patient is scheduled for large volume paracentesis on Saturday. 3. Symptomatic and supportive care for nausea. 4. Continue with IV proton pump inhibitor. 5. We will follow the patient closely during her hospital stay. Thank you for this consultation. MMTUCKERL / PANTERAN: [id number] /
[2017-06-08] MEDS: SODIUM CHLORIDE 0.9% 1,000 ML IV SCH (11:08)
[2017-06-08 12:51] LABS: Glucose,Whole Blood 67 mg/dL (75-99)
[2017-06-08 13:00] LABS: Glucose,Whole Blood 76 mg/dL (75-99)
[2017-06-08] MEDS: METOPROLOL TARTRATE 12.5 MG TAB PO SCH ×2 (13:02→21:54)
--- NOTE | 2017-06-08 13:19 | P.PN ---
Subjective Progress Note Date: 06/08/17 Principal diagnosis: abdominal pain Patient is a 41-year-old female presented past medical history of stage IV colon cancer with carcinomatosis and ascites currently being followed by Dr. Mejia and is on FOLFOX therapy with last dose approximately 2.5 weeks ago, neurofibromatosis, and remote tobacco abuse who presented to the hospital with complaints of abdominal pain. In the ER she underwent an extensive evaluation. She was found to be febrile with temperature 100.9 and tachycardic with a pulse of 113. Laboratory analysis was consistent with her prior anemia. She was also found to be hypokalemic and hypoglycemic. She underwent a CT abdomen and pelvis which was unchanged from prior but showed diffuse ascites and metastatic disease. There was concern for possible pneumonia and she was given a dose of vancomycin and Zosyn. She was admitted to the general medical floor for further monitoring and care. After admission and was determined that she did not have significant evidence to support a diagnosis of pneumonia. But there was concern for possible SBP and she was therefore transitioned to Rocephin. Interventional radiology has been consulted for drainage. GI has also been consulted. On the morning of 06/08 she did have one episode of hypoglycemia which was refractory to eating. She was given a half amp of D50 and started on D5 half-normal. Patient seen and examined at bedside. She is having increased abdominal pain. She states just difficult for her sit for a role to her side due to her large belly. She states she last had it drained during her prior hospitalization and since then it has slowly increased in size and is now unbearable. She also complains of back pain which is increasing. She states the morphine is not taking off of pain and is wearing off before her next dose is due. She is not having any nausea currently but did throw up after taking her new dose of metoprolol. She has had very poor appetite at home but is taking supplements. Objective - Vital Signs Vital signs: Vital Signs Temp 97.6 F 06/08/17 08:15 Pulse 103 H 06/08/17 08:15 Resp 18 06/08/17 08:15 BP 137/104 06/08/17 08:15 Pulse Ox 90 L 06/08/17 08:15 Intake & Output 06/07/17 06/08/17 06/08/17 18:59 06:59 18:59 Intake Total 525 Balance 525 Weight 47.174 kg 47.174 kg Intake: Intake, IV Titration 525 Amount Sodium Chloride 0.9% 1, 525 000 ml @ 75 mls/hr IV . [id number] [facility] Rx#:[id number] Other: Voiding Method Bedpan # Voids 2 - Exam General: non toxic, mild distress, appears older than stated age, cachexia with temporal wasting Derm: warm, dry Head: atraumatic, normocephalic, symmetric, multiple masslike lesions noted with largest on the right side of forehead consistent with patient's known neurofibromatosis Eyes: EOMI, no lid lag, anicteric sclera Mouth: no lip lesion, mucus membranes dry Cardiovascular: S1S2 reg, no murmur, positive posterior tibial pulse bilateral, Lungs: Rhonchi bilaterally, no accessory muscle use Abdominal: Distended soft, nontender to palpation, no guarding, no appreciable organomegaly Ext: no gross muscle atrophy, no edema, no contractures Neuro: CN II-XI grossly intact, no focal neuro deficits Psych: Alert, oriented, appropriate affect - Labs CBC & Chem 7: 06/08/17 07:07 06/08/17 07:07 Labs: Abnormal Lab Results - Last 24 Hours (Table) 06/07/17 06/07/17 06/07/17 Range/Units 19:10 19:10 19:10 RBC 3.27 L (3.80-5.40) m/uL Hgb 9.2 L (11.4-16.0) gm/dL Hct 30.2 L (34.0-46.0) % MCHC 30.5 L (31.0-37.0) g/dL RDW 17.9 H (11.5-15.5) % Plt Count 478 H (150-450) k/uL Lymphocytes # 0.3 L (1.0-4.8) k/uL PT (9.0-12.0) sec INR (<1.2) Potassium 3.0 L* (3.5-5.1) mmol/L Creatinine 0.40 L (0.52-1.04) mg/dL Glucose 69 L (74-99) mg/dL POC Glucose (mg/dL) (75-99) mg/dL Plasma Lactic Acid Malcolm 2.2 H* (0.7-2.0) mmol/L Calcium 8.3 L (8.4-10.2) mg/dL AST 64 H (14-36) U/L Alkaline Phosphatase 354 H (38-126) U/L Total Protein 5.3 L (6.3-8.2) g/dL Albumin 2.6 L (3.5-5.0) g/dL Urine Protein (Negative) Urine Blood (Negative) Urine Bacteria (None) /hpf Urine Mucus (None) /hpf 06/07/17 06/07/17 06/08/17 Range/Units 19:10 20:15 07:07 RBC 3.60 L (3.80-5.40) m/uL Hgb 10.2 L (11.4-16.0) gm/dL Hct (34.0-46.0) % MCHC 29.5 L (31.0-37.0) g/dL RDW 17.5 H (11.5-15.5) % Plt Count 492 H (150-450) k/uL Lymphocytes # 0.3 L (1.0-4.8) k/uL PT 13.0 H (9.0-12.0) sec INR 1.4 H (<1.2) Potassium (3.5-5.1) mmol/L Creatinine (0.52-1.04) mg/dL Glucose (74-99) mg/dL POC Glucose (mg/dL) (75-99) mg/dL Plasma Lactic Acid Malcolm (0.7-2.0) mmol/L Calcium (8.4-10.2) mg/dL AST (14-36) U/L Alkaline Phosphatase (38-126) U/L Total Protein (6.3-8.2) g/dL Albumin (3.5-5.0) g/dL Urine Protein Trace H (Negative) Urine Blood Trace H (Negative) Urine Bacteria Rare H (None) /hpf Urine Mucus Rare H (None) /hpf 06/08/17 06/08/17 06/08/17 Range/Units 07:07 08:39 08:59 RBC (3.80-5.40) m/uL Hgb (11.4-16.0) gm/dL Hct (34.0-46.0) % MCHC (31.0-37.0) g/dL RDW (11.5-15.5) % Plt Count (150-450) k/uL Lymphocytes # (1.0-4.8) k/uL PT (9.0-12.0) sec INR (<1.2) Potassium (3.5-5.1) mmol/L Creatinine 0.41 L (0.52-1.04) mg/dL Glucose 42 L* (74-99) mg/dL POC Glucose (mg/dL) 45 L 50 L (75-99) mg/dL Plasma Lactic Acid Malcolm (0.7-2.0) mmol/L Calcium 8.2 L (8.4-10.2) mg/dL AST 64 H (14-36) U/L Alkaline Phosphatase 325 H (38-126) U/L Total Protein 5.1 L (6.3-8.2) g/dL Albumin 2.4 L (3.5-5.0) g/dL Urine Protein (Negative) Urine Blood (Negative) Urine Bacteria (None) /hpf Urine Mucus (None) /hpf Microbiology - Last 24 Hours (Table) 06/07/17 20:15 Urine Culture - Preliminary Urine,Voided Assessment and Plan Assessment: Sepsis with probable spontaneous bacterial peritonitis -Continue with Rocephin 2 g daily -INR is not available today and emesis urgent, GI has recommended monitoring her ascites -Cell count and differential along with cultures, and albumin -If spikes additional fever then would check blood cultures including 1 from poor -GI recommendations appreciated 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 Mejia on an outpatient basis and being managed with second line chemotherapy of FOLFOX Hypoglycemia -Likely secondary to poor oral intake -Given half an amp of D50 and has now been started on D5 half-normal Severe protein calorie malnutrition -Supplementation -Dietitian recommendation Mildly elevated liver enzymes likely due to infiltration of the liver from metastasis -No need to follow at this point in time Anemia, likely chemotherapy induced -Follow CBC intermittently Neurofibromatosis type I -Supportive care Sinus tachycardia -Extensive workup done during last admission from 05/21 through 06/07 including 2- D echo, thyroid testing, and multiple EKGs -Patient does not want to take her current home dose of metoprolol this will be decreased back to 12.5 twice daily Lactic acidosis, resolved Hypokalemia, resolved DVT prophylaxis: Heparin Discussed with: Patient, nursing Anticipated discharge: 48-[address]: Undetermined A total of 45 minutes was spent on the care of this complex patient more than 50 % of the time was spent in counseling and care coordination.
[2017-06-08 17:19] LABS: Glucose,Whole Blood 68 mg/dL (75-99)
[2017-06-08 17:28] LABS: Glucose,Whole Blood 71 mg/dL (75-99)
[2017-06-08 20:01] LABS: Glucose,Whole Blood 72 mg/dL (75-99)
[2017-06-08] MEDS: ONDANSETRON 4 MG TAB PO PRN (21:49)
[2017-06-09] MEDS: HEPARIN SODIUM,PORCINE 5,000 UNIT/ML 1 ML VIAL SQ SCH ×4 (00:53→23:58)
[2017-06-09] MEDS: MORPHINE SULFATE 4 MG/0.8 ML SYRINGE (INJ) IV PRN ×4 (01:55→22:56)
[2017-06-09] MEDS: DEXTROSE 5%-0.45% NACL 1,000 ML IV SCH ×2 (05:10→11:06)
[2017-06-09 07:11] LABS: Anisocytosis Slight; HCT 33.2 % (34.0-46.0); HGB 9.7 gm/dL (11.4-16.0); Hypochromasia Marked; MCH 27.8 pg (25.0-35.0); MCHC 29.3 g/dL (31.0-37.0); MCV 95.1 fL (80.0-100.0); Platelet Count 459 k/uL (150-450); RBC 3.49 m/uL (3.80-5.40); RDW 17.7 % (11.5-15.5); WBC 12.8 k/uL (3.8-10.6)
[2017-06-09 07:14] LABS: Glucose,Whole Blood 67 mg/dL (75-99)
[2017-06-09 07:35] LABS: Glucose,Whole Blood 60 mg/dL (75-99)
[2017-06-09 07:54] LABS: ALT 20 U/L (9-52); AST 60 U/L (14-36); Albumin 2.5 g/dL (3.5-5.0); Alkaline Phosphatase 315 U/L (38-126); Anion Gap 14 mmol/L; Blood Urea Nitrogen 11 mg/dL (7-17); Calcium 8.6 mg/dL (8.4-10.2); Carbon Dioxide 28 mmol/L (22-30); Chloride 102 mmol/L (98-107); Magnesium 1.7 mg/dL (1.6-2.3); Phosphorus 4.2 mg/dL (2.5-4.5); Potassium 3.9 mmol/L (3.5-5.1); Sodium 144 mmol/L (137-145); Total Bilirubin 0.5 mg/dL (0.2-1.3); Total Protein 5.2 g/dL (6.3-8.2)
[2017-06-09] MEDS ORDERED: DEXTROSE 50%-WATER 50 ML SYRINGE IVP ONE (08:05)
[2017-06-09] MEDS: ONDANSETRON 4 MG TAB PO PRN ×2 (08:09→22:56)
[2017-06-09 08:11] LABS: Glucose 49 mg/dL (74-99)
[2017-06-09 08:20] LABS: Glucose,Whole Blood 63 mg/dL (75-99)
[2017-06-09 08:33] LABS: Glucose,Whole Blood 120 mg/dL (75-99)
[2017-06-09] MEDS: cefTRIAXone IN SWFI 2,000 MG/20 ML SYRINGE IVP SCH (08:34)
[2017-06-09] MEDS: MAG HYDROX/AL HYDROX/SIMETH 30 ML CUP PO SCH (08:35)
[2017-06-09] MEDS: FERROUS SULFATE 325 MG TAB PO SCH (08:35)
[2017-06-09] MEDS: METOPROLOL TARTRATE 12.5 MG TAB PO SCH ×2 (08:35→20:16)
[2017-06-09] MEDS: LIDOCAINE VISCOUS 2% 15 ML CUP MUCOUS MEM SCH ×5 (08:36→17:19)
[2017-06-09] MEDS: NYSTATIN 100,000 UNIT/ML SUSP 500,000 UNIT/5 ML CUP PO SCH ×4 (08:36→20:16)
[2017-06-09] MEDS ORDERED: MAG HYDROX/AL HYDROX/SIMETH 30 ML CUP PO PRN (09:32)
[2017-06-09] MEDS ORDERED: FUROSEMIDE 10 MG/ML 4 ML VIAL IV STA (09:40)
--- NOTE | 2017-06-09 09:48 | P.PN ---
Subjective Progress Note Date: 06/09/17 Principal diagnosis: abdominal pain Patient is a 41-year-old female presented past medical history of stage IV colon cancer with carcinomatosis and ascites currently being followed by Dr. Mejia and is on FOLFOX therapy with last dose approximately 2.5 weeks ago, neurofibromatosis, and remote tobacco abuse who presented to the hospital with complaints of abdominal pain. In the ER she underwent an extensive evaluation. She was found to be febrile with temperature 100.9 and tachycardic with a pulse of 113. Laboratory analysis was consistent with her prior anemia. She was also found to be hypokalemic and hypoglycemic. She underwent a CT abdomen and pelvis which was unchanged from prior but showed diffuse ascites and metastatic disease. There was concern for possible pneumonia and she was given a dose of vancomycin and Zosyn. She was admitted to the general medical floor for further monitoring and care. After admission and was determined that she did not have significant evidence to support a diagnosis of pneumonia. But there was concern for possible SBP and she was therefore transitioned to Rocephin. Interventional radiology has been consulted for drainage. GI was consulted and felt that drainage could be completed Saturday. On the morning of she did have one episode of hypoglycemia which was refractory to eating. She was given a half amp of D50 and started on D5 half-normal. Her blood sugar continued to be marginal despited D51/2NS. She need another 1/2 amp on 06/09 and her fluids were transitioned to D5. Patient seen and examined at bedside. Pain is better controlled than yesterday. No chest pain or shortness of breath. Had a bowel movement today. No nausea. Ate a little today. Objective - Vital Signs Vital signs: Vital Signs Temp 97.7 F 06/09/17 07:30 Pulse 102 H 06/09/17 07:30 Resp 16 06/09/17 07:30 BP 144/103 06/09/17 07:30 Pulse Ox 91 L 06/09/17 07:30 Intake & Output 06/08/17 06/09/17 06/09/17 18:59 06:59 18:59 Weight 47.174 kg Other: Voiding Method Bedpan Bedpan # Voids 1 - Exam General: non toxic, mild distress, appears older than stated age, cachexia with temporal wasting Derm: warm, dry Head: atraumatic, normocephalic, symmetric, multiple mass like lesions noted with largest on the right side of forehead consistent with patient's known neurofibromatosis Eyes: EOMI, no lid lag, anicteric sclera Mouth: no lip lesion, mucus membranes dry Cardiovascular: S1S2 reg, no murmur, positive posterior tibial pulse bilateral, Lungs: CTA bilaterally, no accessory muscle use Abdominal: Distended soft, nontender to palpation, no guarding, no appreciable organomegaly Ext: no gross muscle atrophy, no edema, no contractures Neuro: CN II-XI grossly intact, no focal neuro deficits Psych: Alert, oriented, appropriate affect - Labs CBC & Chem 7: 06/09/17 06:49 06/09/17 06:49 Labs: Abnormal Lab Results - Last 24 Hours (Table) 06/08/17 06/08/17 06/08/17 Range/Units 08:59 12:43 17:11 WBC (3.8-10.6) k/uL RBC (3.80-5.40) m/uL Hgb (11.4-16.0) gm/dL Hct (34.0-46.0) % MCHC (31.0-37.0) g/dL RDW (11.5-15.5) % Plt Count (150-450) k/uL Glucose (74-99) mg/dL POC Glucose (mg/dL) 50 L 67 L 68 L (75-99) mg/dL AST (14-36) U/L Alkaline Phosphatase (38-126) U/L Total Protein (6.3-8.2) g/dL Albumin (3.5-5.0) g/dL 06/08/17 06/08/17 06/09/17 Range/Units 17:25 20:00 06:49 WBC 12.8 H (3.8-10.6) k/uL RBC 3.49 L (3.80-5.40) m/uL Hgb 9.7 L (11.4-16.0) gm/dL Hct 33.2 L (34.0-46.0) % MCHC 29.3 L (31.0-37.0) g/dL RDW 17.7 H (11.5-15.5) % Plt Count 459 H (150-450) k/uL Glucose (74-99) mg/dL POC Glucose (mg/dL) 71 L 72 L (75-99) mg/dL AST (14-36) U/L Alkaline Phosphatase (38-126) U/L Total Protein (6.3-8.2) g/dL Albumin (3.5-5.0) g/dL 06/09/17 06/09/17 06/09/17 Range/Units 06:49 07:13 07:34 WBC (3.8-10.6) k/uL RBC (3.80-5.40) m/uL Hgb (11.4-16.0) gm/dL Hct (34.0-46.0) % MCHC (31.0-37.0) g/dL RDW (11.5-15.5) % Plt Count (150-450) k/uL Glucose 49 L* (74-99) mg/dL POC Glucose (mg/dL) 67 L 60 L (75-99) mg/dL AST 60 H (14-36) U/L Alkaline Phosphatase 315 H (38-126) U/L Total Protein 5.2 L (6.3-8.2) g/dL Albumin 2.5 L (3.5-5.0) g/dL 06/09/17 06/09/17 Range/Units 07:59 08:31 WBC (3.8-10.6) k/uL RBC (3.80-5.40) m/uL Hgb (11.4-16.0) gm/dL Hct (34.0-46.0) % MCHC (31.0-37.0) g/dL RDW (11.5-15.5) % Plt Count (150-450) k/uL Glucose (74-99) mg/dL POC Glucose (mg/dL) 63 L 120 H (75-99) mg/dL AST (14-36) U/L Alkaline Phosphatase (38-126) U/L Total Protein (6.3-8.2) g/dL Albumin (3.5-5.0) g/dL Microbiology - Last 24 Hours (Table) 06/07/17 20:15 Urine Culture - Final Urine,Voided Strep agalactiae - (group b) 06/07/17 19:10 Blood Culture - Preliminary Blood No Growth after 24 hours Assessment and Plan Assessment: Sepsis with probable spontaneous bacterial peritonitis -Continue with Rocephin 2 g daily - IR to preform paracentesis on Saturday. 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 Mejia on an outpatient basis and being managed with second line chemotherapy of FOLFOX, consult to be seen in AM Hypoglycemia - Likely secondary to poor oral intake and sepsis - Change to D10 Thrombocytosis - likely reactive, follow CBC Severe protein calorie malnutrition -Supplementation -Dietitian recommendation Mildly elevated liver enzymes likely due to infiltration of the liver from metastasis -No need to follow at this point in time Anemia, likely chemotherapy induced -Follow CBC intermittently Neurofibromatosis type I -Supportive care Sinus tachycardia -Extensive workup done during last admission from 05/21 through 06/07 including 2- D echo, thyroid testing, and multiple EKGs -Patient does not want to take her current home dose of metoprolol this will be decreased back to 12.5 twice daily Lactic acidosis, resolved Hypokalemia, resolved DVT prophylaxis: Heparin Discussed with: Patient, nursing, Dr. Helton Anticipated discharge: 48-[address]: Undetermined A total of 35 minutes was spent on the care of this complex patient more than 50 % of the time was spent in counseling and care coordination.
[2017-06-09] MEDS: DEXTROSE 10% IN WATER 500 ML in EMPTY BAG 1 BAG IV SCH ×2 (10:02→16:49)
--- NOTE | 2017-06-09 10:40 | PN ---
PROGRESS NOTE DATE OF SERVICE: 06/09/2017. HISTORY: The patient is a 41-year-old pleasant white female with metastatic colon cancer diagnosed in August of 2016, presently undergoing chemotherapy. She was admitted to hospital with ascites and abdominal pain. She is feeling much better today. She had a large volume paracentesis 2 weeks ago during her last hospitalization and 2 L were removed. She was given Lasix and her symptoms have somewhat improved. She still has abdominal pain ad abdominal distention, but no nausea, vomiting, or shortness of breath. PHYSICAL EXAMINATION: Appears comfortable. Blood pressure 129/85, pulse rate 114, temperature 98.7. HEENT examination unremarkable. Conjunctivae pink. Sclerae anicteric. Oral cavity no lesions. NECK: No JVD. No lymph node enlargement. LUNGS: Clear to auscultation. HEART: Regular rate and rhythm rate and rhythm. ABDOMEN: Distended, tympanic. Free fluid noted. EXTREMITIES: No pedal edema. SKIN: No rashes. NEUROLOGIC: Alert and oriented x3. No focal deficits. LAB: Done today, WBC 12.8, hemoglobin 9.7, platelets are 459. BUN and creatinine are 11 and 0.56. AST 60, ALT is 20, alkaline phosphatase is 315. IMPRESSION: 1. Metastatic colon cancer with multiple liver mets/ascites. 2. Abdominal distention related to ascites. 3. Elevated liver function tests secondary to liver metastasis. RECOMMENDATIONS: 1. Continue with diuretics. 2. The patient is already scheduled for large volume paracentesis tomorrow. 3. She is on broad-spectrum antibiotics for possible SBP and we can continue the same. We will follow her closely during hospital stay. Thank you for this consultation. MMODL / IJN: [id number] /
[2017-06-09 11:22] LABS: Glucose,Whole Blood 79 mg/dL (75-99)
[2017-06-09 14:34] LABS: Potassium 3.4 mmol/L (3.5-5.1)
[2017-06-09 17:19] LABS: Glucose,Whole Blood 92 mg/dL (75-99)
[2017-06-09 20:29] LABS: Glucose,Whole Blood 93 mg/dL (75-99)
[2017-06-10] MEDS: DEXTROSE 10% IN WATER 500 ML in EMPTY BAG 1 BAG IV SCH ×4 (00:01→21:57)
[2017-06-10] MEDS: MORPHINE SULFATE 4 MG/0.8 ML SYRINGE (INJ) IV PRN ×2 (03:13→07:45)
[2017-06-10 07:23] LABS: Glucose,Whole Blood 63 mg/dL (75-99)
[2017-06-10] MEDS: ONDANSETRON 4 MG TAB PO PRN (07:31)
[2017-06-10] MEDS: cefTRIAXone IN SWFI 2,000 MG/20 ML SYRINGE IVP SCH (07:45)
[2017-06-10 07:46] LABS: Glucose,Whole Blood 52 mg/dL (75-99)
[2017-06-10] MEDS: HEPARIN SODIUM,PORCINE 5,000 UNIT/ML 1 ML VIAL SQ SCH ×2 (07:52→15:44)
[2017-06-10] MEDS: METOPROLOL TARTRATE 12.5 MG TAB PO SCH ×2 (07:52→21:57)
[2017-06-10] MEDS: FERROUS SULFATE 325 MG TAB PO SCH (07:52)
[2017-06-10] MEDS: LIDOCAINE VISCOUS 2% 15 ML CUP MUCOUS MEM SCH ×3 (07:52→17:25)
[2017-06-10] MEDS: FUROSEMIDE 40 MG TAB PO SCH (07:53)
[2017-06-10] MEDS: NYSTATIN 100,000 UNIT/ML SUSP 500,000 UNIT/5 ML CUP PO SCH ×4 (07:53→21:57)
[2017-06-10 07:59] LABS: Anisocytosis Slight; HCT 31.2 % (34.0-46.0); HGB 9.3 gm/dL (11.4-16.0); Hypochromasia Marked; MCHC 29.8 g/dL (31.0-37.0); MCV 93.8 fL (80.0-100.0); Mean Platelet Volume 7.8; Platelet Count 364 k/uL (150-450); RBC 3.33 m/uL (3.80-5.40); RDW 17.4 % (11.5-15.5); WBC 10.8 k/uL (3.8-10.6)
[2017-06-10 08:14] LABS: ALT 25 U/L (9-52); AST 62 U/L (14-36); Albumin 2.6 g/dL (3.5-5.0); Alkaline Phosphatase 287 U/L (38-126); Anion Gap 12 mmol/L; Blood Urea Nitrogen 9 mg/dL (7-17); Calcium 8.5 mg/dL (8.4-10.2); Carbon Dioxide 29 mmol/L (22-30); Chloride 99 mmol/L (98-107); Potassium 3.5 mmol/L (3.5-5.1); Sodium 140 mmol/L (137-145); Total Bilirubin 0.6 mg/dL (0.2-1.3); Total Protein 5.4 g/dL (6.3-8.2)
[2017-06-10 08:17] LABS: Glucose 46 mg/dL (74-99)
[2017-06-10 08:31] LABS: Glucose,Whole Blood 81 mg/dL (75-99)
[2017-06-10 09:49] LABS: Mean Platelet Volume 7.3; Platelet Count 415 k/uL (150-450)
[2017-06-10 09:57] LABS: INR 1.4 (<1.2)
[2017-06-10 11:50] LABS: Glucose,Whole Blood 70 mg/dL (75-99)
[2017-06-10] MEDS: MORPHINE SULFATE 4 MG/ML SYRINGE IV PRN ×4 (12:13→22:47)
--- NOTE | 2017-06-10 12:29 | US ---
Therapeutic paracentesis. DATE OF EXAM: 06/10/2017 CLINICAL HISTORY: Ascites The procedure was discussed with the patient. The risks, complications, benefits, and alternatives we re discussed and any questions were answered. Informed consent was obtained. The patient was placed s upine on the ultrasound table and prepped and draped in the usual sterile fashion. All elements of maximal barrier technique were utilized. Under ultrasound guidance, access into the right lower quadrant was obtained, via the paracentesis catheter system and direct ultrasound guidanc e. Approximately 2.8 liters of straw-colored fluid was removed. The patient was stable throughout the pr ocedure and remained stable upon discharge from Department of Radiology. IMPRESSION: Successful therapeutic paracentesis under ultrasound guidance.
[2017-06-10 14:53] LABS: Appearance,BF Clear; Color,BF Yellow; Nucleated Cells, Body Fluid 68 /uL; RBC, Body Fluid 175 /uL
[2017-06-10 15:04] LABS: Mononuclear WBC,Body Fluid 76 %; Polynuclear WBC,Body Fluid 24 %; Total Cells Counted,Body Fluid 100
--- NOTE | 2017-06-10 15:43 | P.PN ---
Subjective Progress Note Date: 06/10/17 Principal diagnosis: Abdominal pain Patient just came back from paracentesis, she is currently doing well. No abdominal pain, no nausea or vomiting. Objective - Vital Signs Vital signs: Vital Signs Temp 98.1 F 06/10/17 13:17 Pulse 105 H 06/10/17 13:17 Resp 14 06/10/17 12:48 BP 115/76 06/10/17 13:17 Pulse Ox 96 06/10/17 13:17 Intake & Output 06/09/17 06/10/17 06/10/17 18:59 06:59 18:59 Intake Total 360 Output Total 2800 Balance 360 -2800 Intake: Oral 360 Output: Other 2800 Other: Voiding Method Bedpan Bedside Commode Bedside Commode # Voids 3 - Exam General: non toxic, mild distress, appears older than stated age, cachexia with temporal wasting Derm: warm, dry Head: atraumatic, normocephalic, symmetric, multiple mass like lesions noted with largest on the right side of forehead consistent with patient's known neurofibromatosis Eyes: EOMI, no lid lag, anicteric sclera Mouth: no lip lesion, mucus membranes dry Cardiovascular: S1S2, tachycardic, reg, no murmur, positive posterior tibial pulse bilateral, Lungs: CTA bilaterally, no accessory muscle use Abdominal: Distended soft, nontender to palpation, no guarding, no appreciable organomegaly. Colostomy bag in place. Ext: no gross muscle atrophy, no edema, no contractures Neuro: CN II-XI grossly intact, no focal neuro deficits Psych: Alert, oriented, appropriate affect - Labs CBC & Chem 7: 06/10/17 09:10 06/10/17 07:39 Labs: Abnormal Lab Results - Last 24 Hours (Table) 06/10/17 06/10/17 06/10/17 Range/Units 07:22 07:39 07:39 WBC 10.8 H (3.8-10.6) k/uL RBC 3.33 L (3.80-5.40) m/uL Hgb 9.3 L (11.4-16.0) gm/dL Hct 31.2 L (34.0-46.0) % MCHC 29.8 L (31.0-37.0) g/dL RDW 17.4 H (11.5-15.5) % PT (9.0-12.0) sec INR (<1.2) Creatinine 0.50 L (0.52-1.04) mg/dL Glucose 46 L* (74-99) mg/dL POC Glucose (mg/dL) 63 L (75-99) mg/dL AST 62 H (14-36) U/L Alkaline Phosphatase 287 H (38-126) U/L Total Protein 5.4 L (6.3-8.2) g/dL Albumin 2.6 L (3.5-5.0) g/dL 06/10/17 06/10/17 06/10/17 Range/Units 07:44 09:10 11:49 WBC (3.8-10.6) k/uL RBC (3.80-5.40) m/uL Hgb (11.4-16.0) gm/dL Hct (34.0-46.0) % MCHC (31.0-37.0) g/dL RDW (11.5-15.5) % PT 13.0 H (9.0-12.0) sec INR 1.4 H (<1.2) Creatinine (0.52-1.04) mg/dL Glucose (74-99) mg/dL POC Glucose (mg/dL) 52 L 70 L (75-99) mg/dL AST (14-36) U/L Alkaline Phosphatase (38-126) U/L Total Protein (6.3-8.2) g/dL Albumin (3.5-5.0) g/dL Microbiology - Last 24 Hours (Table) 06/07/17 19:10 Blood Culture - Preliminary Blood No Growth after 48 hours Assessment and Plan Plan: Sepsis with probable spontaneous bacterial peritonitis -Continue with Rocephin 2 g daily -Status post paracentesis today, cell count and differential along with cultures , and albumin pending -If spikes additional fever then would check blood cultures including 1 port, one blood culture drawn in ER is negative for 24 hours -GI recommendations appreciated Ascities due to liver metastasis - lasix 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 -Supportive care with pain control, morphine 6 mg every 3 hours IV -D/W Elvia oncology CNA PER DIEM Hypoglycemia - Likely secondary to poor oral intake and sepsis - D10 Thrombocytosis - likely reactive, follow CBC Severe protein calorie malnutrition -Supplementation -Encouraged to eat -Dietitian recommendation Mildly elevated liver enzymes likely due to infiltration of the liver from metastasis -No need to follow at this point in time Anemia, likely chemotherapy induced -Follow CBC intermittently Neurofibromatosis type I -Supportive care Sinus tachycardia -Extensive workup done during last admission from 05/21 through 06/07 including 2- D echo, thyroid testing, and multiple EKGs -Continue metoprolol 12.5 mg twice daily End-of-life care: Oncology CNA PER DIEM to address that with the patient as she has good rapport with her DVT prophylaxis: Heparin Discussed with: Patient, nursing, oncology CNA PER DIEM Anticipated discharge: 48-[address]: Undetermined A total of 35 minutes was spent on the care of this complex patient more than 50 % of the time was spent in counseling and care coordination.
[2017-06-10 16:55] LABS: Glucose,Whole Blood 95 mg/dL (75-99)
--- NOTE | 2017-06-10 16:56 | P.CONS ---
History of Present Illness - Reason for Consult Consult date: 06/10/17 metastatic colon adenocarcinoma Requesting physician: Collins Somers - Chief Complaint inability to move - History of Present Illness Patient is a very pleasant female pt well known to our service, admitted because at home her was unable to get her out of bed to use the bathroom. Please refer to medical consultation dated 05/22/2017 for full malignancy details. Patient has not received another cycle of FOLFOX or Avastin since her last admission. Patient had a 2.8 L paracentesis today. She states improvement in her abdominal distention and discomfort. Patient denies fevers, nausea, appetite is poor, no vomiting, sore throat, oral irritation, chest pain, she thinks that she can feel palpitations once in a while, slight nonproductive cough, no pleuritic type chest pain, no dysuria, hematuria, her ostomy maintains soft light brown stool output, her lower extremities are mildly swollen. Patient is weak and is having difficulty ambulating independently Review of Systems 10 point review of systems is as stated in HPI Past Medical History Past Medical History: Cancer Additional Past Medical History / Comment(s): stage 4 colon cancer-currently recieving chemo, neurofibromytosis, tachycardia History of Any Multi-Drug Resistant Organisms: None Reported Past Surgical History: Ablation, Orthopedic Surgery, Tonsillectomy Additional Past Surgical History / Comment(s): bowel resection-colostomy(pt stated her normal consistency of stool is pasty), rt ankle fatty tumor removed, mediport , uterine ablation Past Anesthesia/Blood Transfusion Reactions: No Reported Reaction Past Psychological History: No Psychological Hx Reported Additional Psychological History / Comment(s): pt stated she and her family moved from [place] to [place] in oct 2016. lives with spouse and 3 children. pt is independant. Smoking Status: Former smoker Past Alcohol Use History: None Reported Additional Past Alcohol Use History / Comment(s): started smoking at age 18(1993 ) and quit(2009) smoked 1/4 ppd. Past Drug Use History: None Reported - Past Family History Father Family Medical History: Dementia Additional Family Medical History / Comment(s): dad from alzheimers Family Additional Family Medical History / Comment(s): Denies any family history of cancer or coronary artery disease Medications and Allergies Home Medications Medication Instructions Recorded Confirmed Type Calcium Carbonate [Tums] 500 mg PO TID PRN 05/21/17 06/07/17 History Ferrous Sulfate [Iron (65 MG 325 mg PO DAILY 05/21/17 06/07/17 History Elemental)] Furosemide [Lasix] 20 mg PO DAILY 05/21/17 06/07/17 History Ondansetron [Zofran] 4 mg PO QID PRN 05/21/17 06/07/17 History Lidocaine Viscous 2% [Xylocaine 5 ml MUCOUS MEM AC-TID #100 ml 05/24/17 Rx Viscous] Mag Hydrox/Al Hydrox/Simeth 30 ml PO TID #10 cup 05/24/17 06/07/17 Rx [Maalox] Metoprolol Tartrate [Lopressor] 25 mg PO BID #60 tab 05/24/17 06/07/17 Rx Nystatin 100,000 Unit/ml Susp 500,000 unit PO QID #20 cup 05/24/17 06/07/17 Rx [Mycostatin Oral Susp] Diphenoxylate HCl/Atropine 1 tab PO Q6HR PRN 06/07/17 06/07/17 History [Lomotil 2.5-0.025 mg Tablet] HYDROcodone/APAP 5-325MG [[place] 1 tab PO BID PRN 06/07/17 06/07/17 History 5-325] Allergies Allergy/AdvReac Type Severity Reaction Status Date / Time Penicillins Allergy Rapid Verified 06/07/17 18:55 Heart Rate promethazine [From Phenergan] Allergy Rash/Hives Verified 06/07/17 18:55 metoclopramide [From Reglan] AdvReac Dyspnea Verified 06/07/17 18:55 Physical Exam Vitals: Vital Signs Temp Pulse Resp BP Pulse Ox 06/10/17 14:52 98.0 F 108 H 16 119/85 96 06/10/17 13:17 98.1 F 105 H 115/76 96 06/10/17 12:48 107 H 14 113/84 95 06/10/17 12:33 108 H 119/87 96 06/10/17 12:18 102 H 114/83 96 06/10/17 12:03 97.9 F 104 H 14 114/84 96 06/10/17 11:40 107 H 16 117/82 96 06/10/17 11:14 107 H 18 136/91 97 06/10/17 10:44 110 H 18 144/97 97 06/10/17 10:07 98.0 F 117 H 16 130/87 94 L 06/10/17 08:46 98.0 F 117 H 16 130/87 94 L 06/10/17 00:00 18 06/09/17 20:45 97.9 F 124 H 18 126/96 96 Intake and Output 06/10/17 06/10/17 06/10/17 06:59 14:59 22:59 Output Total 2800 Balance -2800 Output: Other 2800 Other: Voiding Method Bedside Commode Bedside Commode # Voids 3 - Constitutional Cachectic, muscle wasting, dark circles around the eyes General appearance: cooperative, no acute distress - EENT Eyes: anicteric sclerae, EOMI, PERRLA ENT: normal oropharynx - Neck Neck: no lymphadenopathy - Respiratory Respiratory: bilateral: CTA - Cardiovascular Heart sounds: normal: S1, S2 Abnormal Heart Sounds: no systolic murmur, no diastolic murmur, no rub, no S3 Gallop, no S4 Gallop, no click, no other leg Peripheral Edema: bilateral: Trace - Gastrointestinal Left lower quadrant ostomy. Abdomen has a nodular appearance to it, no hard masses are palpable, there does appear to be an area at the 3 o'clock position of the ostomy that is firm. General gastrointestinal: distended - Integumentary Ashen - Neurologic Neurologic: CNII-XII intact - Musculoskeletal Musculoskeletal: generalized weakness - Psychiatric Psychiatric: A&O x's 3, appropriate affect, intact judgment & insight Results CBC & Chem 7: 06/10/17 09:10 06/10/17 07:39 Labs: Abnormal Lab Results - Last 24 Hours (Table) 06/10/17 06/10/17 06/10/17 Range/Units 07:22 07:39 07:39 WBC 10.8 H (3.8-10.6) k/uL RBC 3.33 L (3.80-5.40) m/uL Hgb 9.3 L (11.4-16.0) gm/dL Hct 31.2 L (34.0-46.0) % MCHC 29.8 L (31.0-37.0) g/dL RDW 17.4 H (11.5-15.5) % PT (9.0-12.0) sec INR (<1.2) Creatinine 0.50 L (0.52-1.04) mg/dL Glucose 46 L* (74-99) mg/dL POC Glucose (mg/dL) 63 L (75-99) mg/dL AST 62 H (14-36) U/L Alkaline Phosphatase 287 H (38-126) U/L Total Protein 5.4 L (6.3-8.2) g/dL Albumin 2.6 L (3.5-5.0) g/dL 06/10/17 06/10/17 06/10/17 Range/Units 07:44 09:10 11:49 WBC (3.8-10.6) k/uL RBC (3.80-5.40) m/uL Hgb (11.4-16.0) gm/dL Hct (34.0-46.0) % MCHC (31.0-37.0) g/dL RDW (11.5-15.5) % PT 13.0 H (9.0-12.0) sec INR 1.4 H (<1.2) Creatinine (0.52-1.04) mg/dL Glucose (74-99) mg/dL POC Glucose (mg/dL) 52 L 70 L (75-99) mg/dL AST (14-36) U/L Alkaline Phosphatase (38-126) U/L Total Protein (6.3-8.2) g/dL Albumin (3.5-5.0) g/dL Microbiology - Last 24 Hours (Table) 06/07/17 19:10 Blood Culture - Preliminary Blood No Growth after 48 hours Comments: 2.8 L of fluid removed from the abdomen today CT scan - abdomen: report reviewed CT scan - pelvis: report reviewed Assessment and Plan (1) Colon cancer Narrative/Plan: Patient did have a paracentesis today, most likely ascites is from patient's metastatic colon cancer. I spoke with has been on several occasions today. I had a discussion with the patient all by herself. I explained to the patient that I have serious concerns for her health. I am concerned about her ability to physically tolerate treatment. We also discussed the importance of having plans in place in case of unexpected medical events. Patient fully understands the extent of her malignancy. She has agreed to discuss with her putting some plans into place for unexpected medical events. He shouldn't is determined to continue with treatment, and states that she will take treatment as long as there are treatments available to her. I did my best to answer all of the patient and her family's questions. We'll continue to follow with patient daily. Current Visit: Yes Status: Acute Priority: High Code(s): C18.9 - MALIGNANT NEOPLASM OF COLON, UNSPECIFIED SNOMED Code(s): 123309974 Plan: Pneumonia: Patient is being treated with antibiotics for pneumonia, defer care to Attending Physician. Patient is okay from a hematology/oncology standpoint to be discharged home when she is been cleared by Internal Medicine. Time with Patient: Greater than 30 (counseling pt and family)
[2017-06-10 20:24] LABS: Glucose,Whole Blood 124 mg/dL (75-99)
[2017-06-10 21:23] LABS: Total Protein, Body Fluid 1928 mg/dL
[2017-06-11] MEDS: HEPARIN SODIUM,PORCINE 5,000 UNIT/ML 1 ML VIAL SQ SCH ×4 (00:26→22:22)
[2017-06-11] MEDS: DEXTROSE 10% IN WATER 500 ML in EMPTY BAG 1 BAG IV SCH ×4 (04:43→22:27)
[2017-06-11] MEDS: ONDANSETRON 4 MG TAB PO PRN ×2 (07:17→16:48)
[2017-06-11] MEDS: MORPHINE SULFATE 4 MG/ML SYRINGE IV PRN ×2 (07:17→20:09)
[2017-06-11 07:32] LABS: Glucose,Whole Blood 79 mg/dL (75-99)
[2017-06-11] MEDS: NYSTATIN 100,000 UNIT/ML SUSP 500,000 UNIT/5 ML CUP PO SCH ×4 (08:31→22:22)
[2017-06-11] MEDS: FERROUS SULFATE 325 MG TAB PO SCH (08:32)
[2017-06-11] MEDS: FUROSEMIDE 40 MG TAB PO SCH (08:32)
[2017-06-11] MEDS: METOPROLOL TARTRATE 12.5 MG TAB PO SCH (08:32)
[2017-06-11] MEDS: cefTRIAXone IN SWFI 2,000 MG/20 ML SYRINGE IVP SCH (08:32)
--- NOTE | 2017-06-11 08:56 | XR ---
EXAMINATION TYPE: XR chest 1V portable DATE OF EXAM: 06/11/2017 Comparison: Correlation CT abdomen 06/07/2017 Clinical History: 41-year-old female sob, tachycardia Findings: Left-sided anterior chest wall injection port with subclavian approach. Catheter tip at the cavoatria l junction. Heart borderline to mildly enlarged. Elevation of the right hemidiaphragm. Mild diffuse i nterstitial prominence and possible trace right effusion. Subtle pulmonary nodules throughout the rei gs. Impression: Small right pleural effusion with adjacent atelectasis and/or consolidation. Borderline to mild cardi omegaly. Scattered pulmonary nodules.
--- NOTE | 2017-06-11 11:05 | P.PN ---
Subjective Progress Note Date: 06/11/17 Principal diagnosis: weakness Pt seen today in follow up, she having low back pain, worse over the last 24 hours, constant, aching, restricts activities, worse with movement, positioning help a little, pain meds help. She denies fever, she was able to eat a little today, no nausea or vomiting, her ostomy was emptied this AM, she is not having abd pain, some discomfort but, better after paracentesis. She requires assistance to get to bedside commode. Objective - Vital Signs Vital signs: Vital Signs Temp 97.9 F 06/11/17 07:30 Pulse 110 H 06/11/17 07:30 Resp 16 06/11/17 07:30 BP 118/85 06/11/17 07:30 Pulse Ox 96 06/11/17 09:31 Intake & Output 06/10/17 06/11/17 06/11/17 18:59 06:59 18:59 Output Total 2800 218 Balance -2800 -218 Weight 47.174 kg Output: Post Void Residual 218 Other 2800 Other: Voiding Method Bedside Commode Bedside Commode # Voids 5 - Exam A&O x 4, NAD, thin, frail, cachetic, severe muscle wasting, ashen color. Mild tachycardia, no murmur or gallop, respirations even and unlabored, abd soft, no pain elicited with moderate depth palpation, BS noted, ostomy intact. - Labs CBC & Chem 7: 06/10/17 09:10 06/10/17 07:39 Labs: Abnormal Lab Results - Last 24 Hours (Table) 06/10/17 06/10/17 Range/Units 11:49 20:22 POC Glucose (mg/dL) 70 L 124 H (75-99) mg/dL Microbiology - Last 24 Hours (Table) 06/10/17 11:40 Gram Stain - Preliminary Ascites Fluid Body Fluid Culture - Preliminary 06/07/17 19:10 Blood Culture - Preliminary Blood No Growth after 72 hours Assessment and Plan (1) Colon cancer Current Visit: Yes Status: Acute Priority: High Code(s): C18.9 - MALIGNANT NEOPLASM OF COLON, UNSPECIFIED SNOMED Code(s): 268440136 Plan: Pt being treated for UTI, chemo will be on hold until abx completed and infection cleared. Pt verbalized understanding. Pt appts will be adjusted accordingly. Xrays of back and pelvis ordered because of progressive pain. Pain medications have been changed to oral. Will evaluate effectiveness in AM. Pt educated on narcotic induced constipation prevention with stool softeners and laxatives PRN Case discussed with Social Work, have requested that advanced directives and code status paperwork be presented to pt and family to encourage medical decision making.
[2017-06-11] MEDS: LIDOCAINE VISCOUS 2% 15 ML CUP MUCOUS MEM SCH ×3 (11:11→16:49)
[2017-06-11] MEDS: MORPHINE SULFATE ER 30 MG TABLET PO SCH ×2 (11:32→22:23)
[2017-06-11 11:34] LABS: Glucose,Whole Blood 91 mg/dL (75-99)
--- NOTE | 2017-06-11 15:31 | P.PN ---
Subjective Progress Note Date: 06/11/17 Principal diagnosis: Abdominal pain Patient continues to be weak, she fell yesterday while she was trying to get up. No nausea or vomiting. No fevers or chills. Has some abdominal and lower back pain. Objective - Vital Signs Vital signs: Vital Signs Temp 97.9 F 06/11/17 07:30 Pulse 110 H 06/11/17 07:30 Resp 16 06/11/17 11:50 BP 118/85 06/11/17 07:30 Pulse Ox 96 06/11/17 09:31 Intake & Output 06/10/17 06/11/17 06/11/17 18:59 06:59 18:59 Output Total 2800 218 Balance -2800 -218 Weight 47.174 kg Output: Post Void Residual 218 Other 2800 Other: Voiding Method Bedside Commode Bedside Commode Bedside Commode # Voids 5 - Exam General: non toxic, mild distress, appears older than stated age, cachexia with temporal wasting Derm: warm, dry Head: atraumatic, normocephalic, symmetric, multiple mass like lesions noted with largest on the right side of forehead consistent with patient's known neurofibromatosis Eyes: EOMI, no lid lag, anicteric sclera Mouth: no lip lesion, mucus membranes dry Cardiovascular: S1S2, tachycardic, reg, no murmur, positive posterior tibial pulse bilateral, Lungs: CTA bilaterally, no accessory muscle use Abdominal: Distended soft, nontender to palpation, no guarding, no appreciable organomegaly. Colostomy bag in place. Ext: no gross muscle atrophy, no edema, no contractures Neuro: CN II-XI grossly intact, no focal neuro deficits Psych: Alert, oriented, appropriate affect - Labs CBC & Chem 7: 06/10/17 09:10 06/10/17 07:39 Labs: Abnormal Lab Results - Last 24 Hours (Table) 06/10/17 Range/Units 20:22 POC Glucose (mg/dL) 124 H (75-99) mg/dL Microbiology - Last 24 Hours (Table) 06/10/17 11:40 Gram Stain - Preliminary Ascites Fluid Body Fluid Culture - Preliminary 06/07/17 19:10 Blood Culture - Preliminary Blood No Growth after 72 hours Assessment and Plan Plan: Sepsis with probable spontaneous bacterial peritonitis -Resolved, continue with Rocephin 2 g daily -Status post paracentesis, cell count and differential not consistent with infection -If spikes additional fever then would check blood cultures including 1 port, one blood culture drawn in ER is negative for 24 hours Ascities due to liver metastasis - lasix 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 -Supportive care with pain control, morphine 6 mg every 3 hours IV -D/W Elvia oncology TODDLER NANNY Hypoglycemia - Likely secondary to poor oral intake - Nutrition consult for supplements - D10 Thrombocytosis - likely reactive, follow CBC Severe protein calorie malnutrition -Supplementation -Encouraged to eat -Dietitian recommendation Mildly elevated liver enzymes likely due to infiltration of the liver from metastasis -No need to follow at this point in time Anemia, likely chemotherapy induced -Follow CBC intermittently Neurofibromatosis type I -Supportive care Sinus tachycardia -Extensive workup done during last admission from 05/21 through 06/07 including 2- D echo, thyroid testing, and multiple EKGs -Continue metoprolol 12.5 mg twice daily End-of-life care: Oncology TODDLER NANNY to address that with the patient as she has good rapport with her DVT prophylaxis: Heparin Discussed with: Patient, nursing, oncology TODDLER NANNY Anticipated discharge: 48-[address]: Undetermined A total of 35 minutes was spent on the care of this complex patient more than 50 % of the time was spent in counseling and care coordination.
--- NOTE | 2017-06-11 15:57 | XR ---
Two-view spine HISTORY: Stage IV colon cancer Correlation to prior CT abdomen pelvis 2 views of the spine submitted on a total of 10 images There is a thoracic lumbar scoliosis present. Cervical, thoracic, lumbar vertebral bodies show preser rachel height and bone mineralization. Disc spaces are maintained. Basilar increased density present wit hin the lungs corresponds to findings seen on CT. Port-A-Cath is noted incidentally. Fallopian tubal ligation clips are present in the pelvis. Increased attenuation within the pelvis compatible with und erlying ascites. IMPRESSION: Scoliosis. Ascites, pleural effusions. Metastatic disease.
--- NOTE | 2017-06-11 15:58 | XR ---
Sacrum and coccyx HISTORY: Colon cancer, pain 3 views of the sacrum and coccyx Increased attenuation within the pelvis likely represents ascites. Fallopian tubal ligation clips are present. Bone mineralization is maintained. No fracture or dislocation. IMPRESSION: Ascites, metastatic disease.
[2017-06-11 17:22] LABS: Glucose,Whole Blood 78 mg/dL (75-99)
[2017-06-11] MEDS: ACETAMINOPHEN TAB 325 MG TAB PO PRN (18:45)
[2017-06-11 20:24] LABS: Glucose,Whole Blood 75 mg/dL (75-99)
[2017-06-11] MEDS: METOPROLOL TARTRATE 25 MG TAB PO SCH (22:23)
[2017-06-12] MEDS: ZOLPIDEM 5 MG TAB PO SCH ×2 (01:51→21:32)
[2017-06-12] MEDS: MORPHINE SULFATE 4 MG/ML SYRINGE IV PRN (02:37)
[2017-06-12] MEDS: DEXTROSE 10% IN WATER 500 ML in EMPTY BAG 1 BAG IV SCH ×3 (02:51→16:27)
[2017-06-12 07:19] LABS: Glucose,Whole Blood 65 mg/dL (75-99)
[2017-06-12 07:48] LABS: Glucose,Whole Blood 46 mg/dL (75-99)
[2017-06-12 08:04] LABS: Glucose,Whole Blood 67 mg/dL (75-99)
[2017-06-12] MEDS ORDERED: MORPHINE ORAL SOLN 10 MG/5 ML CUP PO PRN (08:20)
[2017-06-12 08:25] LABS: Glucose,Whole Blood 81 mg/dL (75-99)
[2017-06-12 08:28] LABS: Anisocytosis Slight; Basophils % (A) 0 %; Eosinophils % (A) 0 %; HCT 30.3 % (34.0-46.0); Hypochromasia Marked; Lymphocytes # (A) 0.4 k/uL (1.0-4.8); Lymphocytes % (A) 2 %; MCH 27.5 pg (25.0-35.0); MCHC 29.6 g/dL (31.0-37.0); MCV 92.8 fL (80.0-100.0); Mean Platelet Volume 8.3; Monocytes # (A) 1.6 k/uL (0-1.0); Monocytes % (A) 7 %; Neutrophils # (A) 20.2 k/uL (1.3-7.7); Neutrophils % (A) 90 %; Platelet Count 271 k/uL (150-450); RBC 3.27 m/uL (3.80-5.40); RDW 17.2 % (11.5-15.5); WBC 22.6 k/uL (3.8-10.6)
[2017-06-12 08:46] LABS: Anion Gap 12 mmol/L; Blood Urea Nitrogen 11 mg/dL (7-17); Calcium 7.9 mg/dL (8.4-10.2); Carbon Dioxide 30 mmol/L (22-30); Chloride 91 mmol/L (98-107); Magnesium 1.6 mg/dL (1.6-2.3); Phosphorus 3.6 mg/dL (2.5-4.5); Potassium 3.4 mmol/L (3.5-5.1); Sodium 133 mmol/L (137-145)
[2017-06-12 08:50] LABS: Glucose 35 mg/dL (74-99)
[2017-06-12] MEDS: LIDOCAINE VISCOUS 2% 15 ML CUP MUCOUS MEM SCH ×3 (09:03→17:29)
[2017-06-12] MEDS: FUROSEMIDE 40 MG TAB PO SCH (09:03)
[2017-06-12] MEDS: cefTRIAXone IN SWFI 2,000 MG/20 ML SYRINGE IVP SCH (09:03)
[2017-06-12] MEDS: NYSTATIN 100,000 UNIT/ML SUSP 500,000 UNIT/5 ML CUP PO SCH ×4 (09:03→21:32)
[2017-06-12] MEDS: METOPROLOL TARTRATE 25 MG TAB PO SCH ×2 (09:03→20:44)
[2017-06-12] MEDS: FERROUS SULFATE 325 MG TAB PO SCH (09:03)
[2017-06-12] MEDS: HEPARIN SODIUM,PORCINE 5,000 UNIT/ML 1 ML VIAL SQ SCH ×2 (09:03→17:29)
[2017-06-12] MEDS: MORPHINE SULFATE ER 30 MG TABLET PO SCH ×2 (09:16→21:32)
[2017-06-12] MEDS ORDERED: POTASSIUM CHLORIDE 10 MEQ in WATER FOR INJECTION 1 100ML.BAG IVPB STA (10:20)
--- NOTE | 2017-06-12 10:28 | P.PN ---
Subjective Progress Note Date: 06/12/17 Principal diagnosis: Abdominal pain Patient continues to have hypoglycemia, this morning she went as low as 35. She is not eating well currently, has slight nausea. No pain. Objective - Vital Signs Vital signs: Vital Signs Temp 97 F L 06/12/17 07:45 Pulse 88 06/12/17 07:45 Resp 18 06/12/17 07:45 BP 99/70 06/12/17 07:45 Pulse Ox 100 06/12/17 07:45 Intake & Output 06/11/17 06/12/17 06/12/17 18:59 06:59 18:59 Intake Total 180 Balance 180 Weight 47.174 kg Intake: Oral 180 Other: Voiding Method Bedside Commode Bedside Commode Bedside Commode - Exam General: non toxic, mild distress, appears older than stated age, cachexia with temporal wasting Derm: warm, dry Head: atraumatic, normocephalic, symmetric, multiple mass like lesions noted with largest on the right side of forehead consistent with patient's known neurofibromatosis Eyes: EOMI, no lid lag, anicteric sclera Mouth: no lip lesion, mucus membranes dry Cardiovascular: S1S2, tachycardic, reg, no murmur, positive posterior tibial pulse bilateral, Lungs: CTA bilaterally, no accessory muscle use Abdominal: Distended soft, nontender to palpation, no guarding, no appreciable organomegaly. Colostomy bag in place. Ext: no gross muscle atrophy, no edema, no contractures Neuro: CN II-XI grossly intact, no focal neuro deficits Psych: Alert, oriented, appropriate affect - Labs CBC & Chem 7: 06/12/17 07:41 06/12/17 07:51 Labs: Abnormal Lab Results - Last 24 Hours (Table) 06/12/17 06/12/17 06/12/17 Range/Units 07:17 07:41 07:45 WBC 22.6 H (3.8-10.6) k/uL RBC 3.27 L (3.80-5.40) m/uL Hgb 9.0 L (11.4-16.0) gm/dL Hct 30.3 L (34.0-46.0) % MCHC 29.6 L (31.0-37.0) g/dL RDW 17.2 H (11.5-15.5) % Neutrophils # 20.2 H (1.3-7.7) k/uL Lymphocytes # 0.4 L (1.0-4.8) k/uL Monocytes # 1.6 H (0-1.0) k/uL Sodium (137-145) mmol/L Potassium (3.5-5.1) mmol/L Chloride (98-107) mmol/L Creatinine (0.52-1.04) mg/dL Glucose (74-99) mg/dL POC Glucose (mg/dL) 65 L 46 L (75-99) mg/dL Calcium (8.4-10.2) mg/dL 06/12/17 06/12/17 Range/Units 07:51 08:02 WBC (3.8-10.6) k/uL RBC (3.80-5.40) m/uL Hgb (11.4-16.0) gm/dL Hct (34.0-46.0) % MCHC (31.0-37.0) g/dL RDW (11.5-15.5) % Neutrophils # (1.3-7.7) k/uL Lymphocytes # (1.0-4.8) k/uL Monocytes # (0-1.0) k/uL Sodium 133 L (137-145) mmol/L Potassium 3.4 L (3.5-5.1) mmol/L Chloride 91 L (98-107) mmol/L Creatinine 0.43 L (0.52-1.04) mg/dL Glucose 35 L* (74-99) mg/dL POC Glucose (mg/dL) 67 L (75-99) mg/dL Calcium 7.9 L (8.4-10.2) mg/dL Microbiology - Last 24 Hours (Table) 06/07/17 19:10 Blood Culture - Preliminary Blood No Growth after 96 hours 06/10/17 11:40 Gram Stain - Preliminary Ascites Fluid Body Fluid Culture - Preliminary Assessment and Plan Plan: Sepsis with probable spontaneous bacterial peritonitis -Resolved, continue with Rocephin 2 g daily -Status post paracentesis, which was done 2 days after abx started, cell count and differential not consistent with infection--result not reliable -If spikes additional fever then would check blood cultures including 1 port, one blood culture drawn in ER is negative for 24 hours Ascities due to liver metastasis - lasix 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 -Supportive care with pain control, morphine 6 mg every 3 hours IV -D/W Dr. Joseph, who thinks patient should be comfort measures. Hypoglycemia - Likely secondary to poor oral intake and liver dysfunction sec to cancer mets. - Nutrition consult for supplements - D10 gtt - Start megace for appetite stimulation. Thrombocytosis - likely reactive, follow CBC Severe protein calorie malnutrition -Supplementation -Encouraged to eat -Dietitian recommendation Mildly elevated liver enzymes likely due to infiltration of the liver from metastasis -No need to follow at this point in time Anemia, likely chemotherapy induced -Follow CBC intermittently Neurofibromatosis type I -Supportive care Sinus tachycardia -Extensive workup done during last admission from 05/21 through 06/07 including 2- D echo, thyroid testing, and multiple EKGs -Increase metoprolol to 25 mg twice daily End-of-life care: Oncology STEEL CUTTER to address code status with the patient as she has good rapport with her. Patient's is leaning towards no code but patient insists on being a full code at this point in time. Elvia will go back and talk to the patient regarding the CODE STATUS again. Discussed with her and attending Dr. Joseph. DVT prophylaxis: Heparin Discussed with: Patient, nursing, oncology STEEL CUTTER Anticipated discharge: 48-[address]: Undetermined
[2017-06-12 11:02] LABS: Glucose,Whole Blood 89 mg/dL (75-99)
[2017-06-12] MEDS: ACETAMINOPHEN TAB 325 MG TAB PO PRN (11:07)
[2017-06-12] MEDS: MEGESTROL 400 MG/10 ML CUP PO SCH (11:08)
[2017-06-12] MEDS ORDERED: POTASSIUM CHLORIDE ER 20 MEQ TAB.ER PO ONE (11:30)
--- NOTE | 2017-06-12 12:01 | P.PN ---
Subjective Progress Note Date: 06/12/17 Principal diagnosis: weakness, metastatic colon adenocarcinoma Patient is seen today in follow-up, she does not have an appetite this morning, denies fever, nausea, difficulty in breathing, her abdomen is not causing her significant discomfort, her low back is causing her quite a bit of pain. Objective - Vital Signs Vital signs: Vital Signs Temp 97 F L 06/12/17 07:45 Pulse 88 06/12/17 07:45 Resp 18 06/12/17 07:45 BP 99/70 06/12/17 07:45 Pulse Ox 100 06/12/17 07:45 Intake & Output 06/11/17 06/12/17 06/12/17 18:59 06:59 18:59 Intake Total 180 Balance 180 Weight 47.174 kg Intake: Oral 180 Other: Voiding Method Bedside Commode Bedside Commode Bedside Commode - Exam Patient is progressively wasting, skin color is ashen, eyes are sunken, respirations appear slightly labored today, no audible wheezes, patient is extraordinarily week, unable to reposition herself in the bed. - Labs CBC & Chem 7: 06/12/17 07:41 06/12/17 07:51 Labs: Abnormal Lab Results - Last 24 Hours (Table) 06/12/17 06/12/17 06/12/17 Range/Units 07:17 07:41 07:45 WBC 22.6 H (3.8-10.6) k/uL RBC 3.27 L (3.80-5.40) m/uL Hgb 9.0 L (11.4-16.0) gm/dL Hct 30.3 L (34.0-46.0) % MCHC 29.6 L (31.0-37.0) g/dL RDW 17.2 H (11.5-15.5) % Neutrophils # 20.2 H (1.3-7.7) k/uL Lymphocytes # 0.4 L (1.0-4.8) k/uL Monocytes # 1.6 H (0-1.0) k/uL Sodium (137-145) mmol/L Potassium (3.5-5.1) mmol/L Chloride (98-107) mmol/L Creatinine (0.52-1.04) mg/dL Glucose (74-99) mg/dL POC Glucose (mg/dL) 65 L 46 L (75-99) mg/dL Calcium (8.4-10.2) mg/dL 06/12/17 06/12/17 Range/Units 07:51 08:02 WBC (3.8-10.6) k/uL RBC (3.80-5.40) m/uL Hgb (11.4-16.0) gm/dL Hct (34.0-46.0) % MCHC (31.0-37.0) g/dL RDW (11.5-15.5) % Neutrophils # (1.3-7.7) k/uL Lymphocytes # (1.0-4.8) k/uL Monocytes # (0-1.0) k/uL Sodium 133 L (137-145) mmol/L Potassium 3.4 L (3.5-5.1) mmol/L Chloride 91 L (98-107) mmol/L Creatinine 0.43 L (0.52-1.04) mg/dL Glucose 35 L* (74-99) mg/dL POC Glucose (mg/dL) 67 L (75-99) mg/dL Calcium 7.9 L (8.4-10.2) mg/dL Microbiology - Last 24 Hours (Table) 06/07/17 19:10 Blood Culture - Preliminary Blood No Growth after 96 hours 06/10/17 11:40 Gram Stain - Preliminary Ascites Fluid Body Fluid Culture - Preliminary Assessment and Plan (1) Colon cancer Narrative/Plan: Metastatic colon cancer. Greater than 30 minutes was spent counseling and coordinating care. Case was discussed with the before he had to leave. Social work and myself met with the patient and her mother, who was at the bedside. We discussed concerns that patient's organs are beginning to fail. We reviewed abnormal labs, hypoglycemia, progressive weakness. We discussed concerns for lack of an advanced directive. We discussed CODE STATUS. We reviewed that heroic measures such as CPR and intubation would not place patient in a position to recover as the underlying cause of her condition, the metastatic colon cancer, is not correctable. Concern as well that the act of CPR could potentially cause severe physical damage because she is so frail and cachectic. All questions were answered to the best of our ability. Patient was provided with paperwork and phone numbers to contact either myself or social work to clarify any questions. We have asked the patient to make a decision today. She states that she will after she speaks to her . Current Visit: Yes Status: Acute Priority: High Code(s): C18.9 - MALIGNANT NEOPLASM OF COLON, UNSPECIFIED SNOMED Code(s): 595629940
[2017-06-12] MEDS: MORPHINE ORAL SOLN 10 MG/5 ML CUP PO PRN (14:13)
[2017-06-12] MEDS: ONDANSETRON 4 MG TAB PO PRN (14:13)
[2017-06-12 16:52] LABS: Glucose,Whole Blood 111 mg/dL (75-99)
[2017-06-12 20:42] LABS: Glucose,Whole Blood 100 mg/dL (75-99)
[2017-06-13] MEDS: HEPARIN SODIUM,PORCINE 5,000 UNIT/ML 1 ML VIAL SQ SCH ×3 (00:20→17:19)
[2017-06-13] MEDS: DEXTROSE 10% IN WATER 500 ML in EMPTY BAG 1 BAG IV SCH ×4 (01:21→20:09)
[2017-06-13 07:33] LABS: Glucose,Whole Blood 100 mg/dL (75-99)
[2017-06-13] MEDS: ONDANSETRON 4 MG TAB PO PRN ×2 (07:36→17:18)
[2017-06-13] MEDS: MEGESTROL 400 MG/10 ML CUP PO SCH (07:37)
[2017-06-13] MEDS: FERROUS SULFATE 325 MG TAB PO SCH (07:38)
[2017-06-13] MEDS: METOPROLOL TARTRATE 25 MG TAB PO SCH ×2 (07:39→20:23)
[2017-06-13] MEDS: NYSTATIN 100,000 UNIT/ML SUSP 500,000 UNIT/5 ML CUP PO SCH ×3 (07:40→18:40)
[2017-06-13] MEDS: FUROSEMIDE 40 MG TAB PO SCH (07:40)
[2017-06-13] MEDS: MORPHINE ORAL SOLN 10 MG/5 ML CUP PO PRN (07:50)
[2017-06-13] MEDS: cefTRIAXone IN SWFI 2,000 MG/20 ML SYRINGE IVP SCH (07:51)
[2017-06-13 09:50] LABS: ALT 25 U/L (9-52); AST 111 U/L (14-36); Albumin 2.4 g/dL (3.5-5.0); Alkaline Phosphatase 315 U/L (38-126); Anion Gap 13 mmol/L; Anisocytosis Slight; Blood Urea Nitrogen 11 mg/dL (7-17); Calcium 7.9 mg/dL (8.4-10.2); Carbon Dioxide 28 mmol/L (22-30); Chloride 92 mmol/L (98-107); Glucose 51 mg/dL (74-99); HCT 30.2 % (34.0-46.0); HGB 9.1 gm/dL (11.4-16.0); Hypochromasia Marked; MCH 28.2 pg (25.0-35.0); MCV 93.7 fL (80.0-100.0); Mean Platelet Volume 8.2; Platelet Count 244 k/uL (150-450); Potassium 3.7 mmol/L (3.5-5.1); RBC 3.22 m/uL (3.80-5.40); RDW 16.9 % (11.5-15.5); Sodium 133 mmol/L (137-145); Total Protein 5.1 g/dL (6.3-8.2); WBC 24.7 k/uL (3.8-10.6)
[2017-06-13] MEDS: LIDOCAINE VISCOUS 2% 15 ML CUP MUCOUS MEM SCH ×3 (10:55→18:40)
[2017-06-13] MEDS: MORPHINE SULFATE ER 30 MG TABLET PO SCH (10:56)
[2017-06-13 11:06] LABS: Magnesium 1.7 mg/dL (1.6-2.3); Phosphorus 2.9 mg/dL (2.5-4.5)
[2017-06-13 11:32] LABS: Glucose,Whole Blood 59 mg/dL (75-99)
[2017-06-13] MEDS ORDERED: VANCOMYCIN IV PER PHARMACY 1 EACH MISC MISCELLANE PRN (11:54)
[2017-06-13 12:02] LABS: Glucose,Whole Blood 66 mg/dL (75-99)
[2017-06-13 12:15] LABS: Glucose,Whole Blood 63 mg/dL (75-99)
--- NOTE | 2017-06-13 12:29 | P.PN ---
Subjective Progress Note Date: 06/13/17 Principal diagnosis: weakness, metastatic colon adenocarcinoma Pt seen in follow up. , 2 sisters and mother at bedside. Pt is denying any physical c/o. She is drinking fluids. Objective - Vital Signs Vital signs: Vital Signs Temp 97.7 F 06/13/17 08:50 Pulse 107 H 06/13/17 08:50 Resp 16 06/13/17 08:50 BP 90/60 06/13/17 08:50 Pulse Ox 94 L 06/13/17 08:50 Intake & Output 06/12/17 06/13/17 06/13/17 18:59 06:59 18:59 Intake Total 60 Balance 60 Intake: Oral 60 Other: Voiding Method Bedside Commode Bedside Commode Bedside Commode - Exam Pt is sitting up in bed, A&Ox4, muscle wasting, frail, cachetic, castro color, unlabored respirations, generalized weakness. - Labs CBC & Chem 7: 06/13/17 09:09 06/13/17 09:09 Labs: Abnormal Lab Results - Last 24 Hours (Table) 06/12/17 06/12/17 06/13/17 Range/Units 16:50 20:40 07:25 WBC (3.8-10.6) k/uL RBC (3.80-5.40) m/uL Hgb (11.4-16.0) gm/dL Hct (34.0-46.0) % MCHC (31.0-37.0) g/dL RDW (11.5-15.5) % Sodium (137-145) mmol/L Chloride (98-107) mmol/L Creatinine (0.52-1.04) mg/dL Glucose (74-99) mg/dL POC Glucose (mg/dL) 111 H 100 H 100 H (75-99) mg/dL Calcium (8.4-10.2) mg/dL AST (14-36) U/L Alkaline Phosphatase (38-126) U/L Total Protein (6.3-8.2) g/dL Albumin (3.5-5.0) g/dL 06/13/17 06/13/17 06/13/17 Range/Units 09:09 09:09 11:26 WBC 24.7 H (3.8-10.6) k/uL RBC 3.22 L (3.80-5.40) m/uL Hgb 9.1 L (11.4-16.0) gm/dL Hct 30.2 L (34.0-46.0) % MCHC 30.0 L (31.0-37.0) g/dL RDW 16.9 H (11.5-15.5) % Sodium 133 L (137-145) mmol/L Chloride 92 L (98-107) mmol/L Creatinine 0.36 L (0.52-1.04) mg/dL Glucose 51 L (74-99) mg/dL POC Glucose (mg/dL) 59 L (75-99) mg/dL Calcium 7.9 L (8.4-10.2) mg/dL AST 111 H (14-36) U/L Alkaline Phosphatase 315 H (38-126) U/L Total Protein 5.1 L (6.3-8.2) g/dL Albumin 2.4 L (3.5-5.0) g/dL 06/13/17 06/13/17 Range/Units 11:50 12:14 WBC (3.8-10.6) k/uL RBC (3.80-5.40) m/uL Hgb (11.4-16.0) gm/dL Hct (34.0-46.0) % MCHC (31.0-37.0) g/dL RDW (11.5-15.5) % Sodium (137-145) mmol/L Chloride (98-107) mmol/L Creatinine (0.52-1.04) mg/dL Glucose (74-99) mg/dL POC Glucose (mg/dL) 66 L 63 L (75-99) mg/dL Calcium (8.4-10.2) mg/dL AST (14-36) U/L Alkaline Phosphatase (38-126) U/L Total Protein (6.3-8.2) g/dL Albumin (3.5-5.0) g/dL Microbiology - Last 24 Hours (Table) 06/10/17 11:40 Gram Stain - Preliminary Ascites Fluid Body Fluid Culture - Preliminary 06/07/17 19:10 Blood Culture - Preliminary Blood No Growth after 120 hours Assessment and Plan (1) Colon cancer Narrative/Plan: Pt and family have decided on aggressive management and treatment of metastatic colon adenocarcinoma. Plan is: Pt has been started on megace for appetite. Will see how pt appetite is over the next 24 hours. Goal is to have pt eating enough to maintain blood glucose without D10% IVF. If pt is unable to maintain a blood glucose with oral intake TPN will be initiated to maintain blood glucose. Dr. Joseph did discuss the risks and limitations of TPN in the setting of metastatic malignancy. All questions were answered and pt and family were agreeable and accept the risks and limitations of TPN want to proceed with this plan of care. Did discuss with Case management. They will investigate TPN at home, as this will need to be continued until such time that pt has adequate oral intake. No other questions or concerns at this time Current Visit: Yes Status: Acute Priority: High Code(s): C18.9 - MALIGNANT NEOPLASM OF COLON, UNSPECIFIED SNOMED Code(s): 148060666 Plan: Attests: I have performed a History and Physical examination of the pt, discussed with dictator. I agree with dictators note, documented as a scribe.
[2017-06-13 12:50] LABS: Glucose,Whole Blood 130 mg/dL (75-99)
[2017-06-13] MEDS ORDERED: VANCOMYCIN 1,000 MG in SODIUM CHLORIDE 0.9% 250 ML IVPB ONE (13:00)
--- NOTE | 2017-06-13 14:50 | P.PN ---
Subjective Progress Note Date: 06/13/17 Principal diagnosis: abdominal pain Patient is a 41-year-old female presented past medical history of stage IV colon cancer with carcinomatosis and ascites currently being followed by Dr. Mejia and is on FOLFOX therapy with last dose approximately 2.5 weeks ago, neurofibromatosis, and remote tobacco abuse who presented to the hospital with complaints of abdominal pain. In the ER she underwent an extensive evaluation. She was found to be febrile with temperature 100.9 and tachycardic with a pulse of 113. Laboratory analysis was consistent with her prior anemia. She was also found to be hypokalemic and hypoglycemic. She underwent a CT abdomen and pelvis which was unchanged from prior but showed diffuse ascites and metastatic disease. There was concern for possible pneumonia and she was given a dose of vancomycin and Zosyn. She was admitted to the general medical floor for further monitoring and care. After admission and was determined that she did not have significant evidence to support a diagnosis of pneumonia. But there was concern for possible SBP and she was therefore transitioned to Rocephin. Interventional radiology has been consulted for drainage. GI was consulted and felt that drainage could be completed Saturday. On the morning of she did have one episode of hypoglycemia which was refractory to eating. She was given a half amp of D50 and started on D5 half-normal. Her blood sugar continued to be marginal despited D51/2NS. She need another 1/2 amp on 06/09 and her fluids were transitioned to D10. She underwent paracentesisi on 06/11 with removal of 2.8 L of fluid. She has continued to struggle with hypoglycemia despite D10. She was started on megace. Patient seen and examined at bedside. No shortness of breath, no nausea, no increased stool output from her ostomy. We discussed that they have been considering TPN to keep her blood sugars elevated and then possible continuation of chemo. She has my opinion on this and I informed her that I do not feel it would be in her best interest. We discussed that her white blood cell count was elevated and concerned that she could have a secondary infection. She was started on Vanco and infectious disease will be consulted. I have informed her that we will draw cultures from her Port-A-Cath. We discussed at length the fact that her continued low blood sugars may be due to lack of appetite but may also be due to the fact that she has overt liver failure due to her metastasis and would have difficulty with gluconeogenesis and glycogenolysis do to her liver disease. She does understand the concept. She is currently unsure whether or not she would want to proceed with TPN. Objective - Vital Signs Vital signs: Vital Signs Temp 97.7 F 06/13/17 08:50 Pulse 107 H 06/13/17 08:50 Resp 16 06/13/17 08:50 BP 90/60 06/13/17 08:50 Pulse Ox 94 L 06/13/17 08:50 Intake & Output 06/12/17 06/13/17 06/13/17 18:59 06:59 18:59 Intake Total 60 Balance 60 Intake: Oral 60 Other: Voiding Method Bedside Commode Bedside Commode Bedside Commode - Exam General: non toxic, no distress, appears older than stated age, cachexia with temporal wasting Derm: warm, dry Head: atraumatic, normocephalic, symmetric, multiple mass like lesions noted with largest on the right side of forehead consistent with patient's known neurofibromatosis Eyes: EOMI, no lid lag, anicteric sclera Mouth: no lip lesion, mucus membranes dry Cardiovascular: S1 and S2 tachycardic, no murmur, positive posterior tibial pulse bilateral, Lungs: CTA bilaterally, no accessory muscle use Abdominal: Distended soft, nontender to palpation, no guarding, no appreciable organomegaly Ext: no gross muscle atrophy, no edema, no contractures Neuro: CN II-XI grossly intact, no focal neuro deficits Psych: Alert, oriented, appropriate affect - Labs CBC & Chem 7: 06/13/17 09:09 06/13/17 09:09 Labs: Abnormal Lab Results - Last 24 Hours (Table) 06/12/17 06/12/17 06/13/17 Range/Units 16:50 20:40 07:25 WBC (3.8-10.6) k/uL RBC (3.80-5.40) m/uL Hgb (11.4-16.0) gm/dL Hct (34.0-46.0) % MCHC (31.0-37.0) g/dL RDW (11.5-15.5) % Sodium (137-145) mmol/L Chloride (98-107) mmol/L Creatinine (0.52-1.04) mg/dL Glucose (74-99) mg/dL POC Glucose (mg/dL) 111 H 100 H 100 H (75-99) mg/dL Calcium (8.4-10.2) mg/dL AST (14-36) U/L Alkaline Phosphatase (38-126) U/L Total Protein (6.3-8.2) g/dL Albumin (3.5-5.0) g/dL 06/13/17 06/13/17 06/13/17 Range/Units 09:09 09:09 11:26 WBC 24.7 H (3.8-10.6) k/uL RBC 3.22 L (3.80-5.40) m/uL Hgb 9.1 L (11.4-16.0) gm/dL Hct 30.2 L (34.0-46.0) % MCHC 30.0 L (31.0-37.0) g/dL RDW 16.9 H (11.5-15.5) % Sodium 133 L (137-145) mmol/L Chloride 92 L (98-107) mmol/L Creatinine 0.36 L (0.52-1.04) mg/dL Glucose 51 L (74-99) mg/dL POC Glucose (mg/dL) 59 L (75-99) mg/dL Calcium 7.9 L (8.4-10.2) mg/dL AST 111 H (14-36) U/L Alkaline Phosphatase 315 H (38-126) U/L Total Protein 5.1 L (6.3-8.2) g/dL Albumin 2.4 L (3.5-5.0) g/dL Microbiology - Last 24 Hours (Table) 06/10/17 11:40 Gram Stain - Preliminary Ascites Fluid Body Fluid Culture - Preliminary 06/07/17 19:10 Blood Culture - Preliminary Blood No Growth after 120 hours Assessment and Plan Assessment: Increasing leukocytosis -Add vancomycin in case of/bloodstream infection -Check blood cultures with one from poor -Check UA -Check CXR - Consult ID - monitor temp closely 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 Possible need for TPN plus plans for chemotherapy. Hyponatremia -Likely secondary to hypotonic fluid administration along with the use of Lasix -Monitor daily Sepsis with probable spontaneous bacterial peritonitis -Continue with Rocephin 2 g daily -Status post paracentesis on 06/10. Results were not consistent with SBP but due to duration of antibiotic use she will continue with treatment. -GI recommendations appreciated Ascities due to liver metastasis -Daily by mouth Lasix Hypoglycemia - Likely secondary to poor oral intake in combination with liver disease - Continue D 10 Severe protein calorie malnutrition -Supplementation -Dietitian recommendation - on megace Mildly elevated liver enzymes likely due to infiltration of the liver from metastasis -No need to follow at this point in time Anemia, likely chemotherapy induced -Follow CBC intermittently Neurofibromatosis type I -Supportive care Sinus tachycardia -Extensive workup done during last admission from 05/21 through 06/07 including 2- D echo, thyroid testing, and multiple EKGs -On metoprolol 25 mg BID Lactic acidosis, resolved Hypokalemia, resolved Thrombocytosis, resolved Poor prognosis overall. Has had multiple discussions with oncology team regarding CODE STATUS. DVT prophylaxis: Heparin Discussed with: Patient, nursing, Elvia Dunn NP Anticipated discharge: undetermined Anticipated discharge place: Undetermined A total of 45 minutes was spent on the care of this complex patient more than 50 % of the time was spent in counseling and care coordination.
--- NOTE | 2017-06-13 16:43 | XR ---
EXAMINATION TYPE: XR chest 2V DATE OF EXAM: 06/13/2017 COMPARISON: 06/11/2017 TECHNIQUE: PA and lateral views submitted. HISTORY: Shortness of breath FINDINGS: I lateral consolidation and pleural effusion greater on the right is stable. Mediport catheter seen. Suspect pulmonary nodules as previously reported by CT scan. Heart size stable. Arthropathy of the shoulders. IMPRESSION: 1. Stable bilateral consolidation, pulmonary nodules and pleural effusions.
[2017-06-13 17:41] LABS: Glucose,Whole Blood 109 mg/dL (75-99)
[2017-06-13] MEDS: VANCOMYCIN 750 MG in SODIUM CHLORIDE 0.9% 250 ML IVPB SCH (20:23)
[2017-06-13 20:29] LABS: Glucose,Whole Blood 95 mg/dL (75-99)
[2017-06-13 22:33] LABS: Appearance,Urine Clear (Clear); Bilirubin,Urine Negative (Negative); Blood,Urine Negative (Negative); Color,Urine Yellow; Glucose,Urine (UA) Negative (Negative); Ketones,Urine Negative (Negative); Leukocyte Esterase,Urine Negative (Negative); Nitrite,Urine Negative (Negative); Protein,Urine Negative (Negative); Specific Gravity,Urine 1.005 (1.001-1.035); Urobilinogen,Urine <2.0 mg/dL (<2.0)
[2017-06-14] MEDS: HEPARIN SODIUM,PORCINE 5,000 UNIT/ML 1 ML VIAL SQ SCH ×3 (00:28→16:37)
[2017-06-14] MEDS: NYSTATIN 100,000 UNIT/ML SUSP 500,000 UNIT/5 ML CUP PO SCH ×5 (00:28→20:49)
[2017-06-14] MEDS: ZOLPIDEM 5 MG TAB PO SCH ×3 (02:25→23:56)
[2017-06-14] MEDS: DEXTROSE 10% IN WATER 500 ML in EMPTY BAG 1 BAG IV SCH ×4 (03:08→22:58)
[2017-06-14] MEDS: MORPHINE SULFATE ER 30 MG TABLET PO SCH ×3 (05:12→20:48)
[2017-06-14] MEDS: VANCOMYCIN 750 MG in SODIUM CHLORIDE 0.9% 250 ML IVPB SCH ×3 (05:18→20:48)
[2017-06-14 07:10] LABS: Anisocytosis Slight; HCT 29.1 % (34.0-46.0); HGB 8.7 gm/dL (11.4-16.0); Hypochromasia Marked; MCH 28.1 pg (25.0-35.0); MCHC 29.8 g/dL (31.0-37.0); MCV 94.4 fL (80.0-100.0); Mean Platelet Volume 8.8; Platelet Count 202 k/uL (150-450); RBC 3.08 m/uL (3.80-5.40); WBC 20.2 k/uL (3.8-10.6)
[2017-06-14 07:21] LABS: ALT 22 U/L (9-52); AST 87 U/L (14-36); Albumin 2.2 g/dL (3.5-5.0); Alkaline Phosphatase 261 U/L (38-126); Anion Gap 14 mmol/L; Blood Urea Nitrogen 12 mg/dL (7-17); Carbon Dioxide 26 mmol/L (22-30); Chloride 92 mmol/L (98-107); Glucose 66 mg/dL (74-99); Potassium 3.6 mmol/L (3.5-5.1); Sodium 132 mmol/L (137-145); Total Bilirubin 1.2 mg/dL (0.2-1.3); Total Protein 4.8 g/dL (6.3-8.2)
[2017-06-14 07:22] LABS: Glucose,Whole Blood 203 mg/dL (75-99)
[2017-06-14] MEDS: cefTRIAXone IN SWFI 2,000 MG/20 ML SYRINGE IVP SCH (08:09)
[2017-06-14] MEDS: MEGESTROL 400 MG/10 ML CUP PO SCH (08:10)
[2017-06-14] MEDS: FUROSEMIDE 40 MG TAB PO SCH ×2 (08:10→16:34)
[2017-06-14] MEDS: FERROUS SULFATE 325 MG TAB PO SCH (08:10)
[2017-06-14] MEDS: METOPROLOL TARTRATE 25 MG TAB PO SCH ×2 (08:10→20:49)
[2017-06-14] MEDS: ONDANSETRON 4 MG TAB PO PRN (09:17)
[2017-06-14] MEDS: LIDOCAINE VISCOUS 2% 15 ML CUP MUCOUS MEM SCH ×3 (09:18→16:38)
--- NOTE | 2017-06-14 09:18 | P.CONS ---
History of Present Illness - Reason for Consult Consult date: 06/14/17 Elevated WBC, liver disease, metastatic cancer - History of Present Illness female patient diagnosed with invasive carcinoma of the colon in August 2016 with metastases to the liver. By February 2017 there was progression of her disease. She completed 12 cycles of FOLFIRI/vectibix 04/17/2017 however repeat CAT scan done on May 01 showed progression of disease and she was treated with a second line therapy with FOLFOX and Avastin. She was recently admitted May 21 with abdominal ascites and underwent paracentesis. Patient was readmitted on 06/07 with abdominal pain, nausea, vomiting, fever and chills, tachycardia. Patient underwent repeat paracentesis with removal of 2.8 L with some improvement of her abdominal distention and discomfort. She has had essentially no oral intake and has no appetite. She has been placed on Megace and oncology is planning for TPN if oral intake does not improve to maintain blood sugar. Her blood sugars have been low as 35. She did have influenza testing done which was negative. Temperature max was on June 07 of 100.9. Her white count was initially 7.7 and is now 20.2. Her urinalysis is clear with nitrate and leukoesterase negative. Urine culture is strep and elect to group B. Blood cultures no growth after 144 hours. Liver enzymes are elevated. She has had a chest x-ray done yesterday showing bilateral consolidation, pulmonary nodules and pleural effusion. Upon presentation she also had an abdominal and pelvic CAT scan with contrast that revealed hepatomegaly with multiple liver masses consistent with metastatic disease and compared to May 01 is unchanged. Basilar pulmonary infiltrates and atelectasis. Increased pleural fluid compared to old exam. Abdominal has multiple masses consistent with carcinomatosis similar to old exam. Massive ascites. Patient denies any cough, sputum production, chest pain. She denies any abdominal pain at this time and her states her pain has been well controlled. Patient denies any dysuria, frequency. Patient states she is too weak to get out of bed by herself. She is currently on IV antibiotics with Rocephin and vancomycin. Her states she has had no change in colostomy output consistency. He denies diarrhea. Discussed in detail with patient's her poor prognosis. He has been told by one physician that the patient may not make it through the weekend and he acknowledges that this most likely is true and if not that her will occur soon after that. He is anxious to get a no CODE STATUS addressed by her as he does not want to make that decision for her at a later time when she is not able to do it herself. He also does not want her to go through CPR as he knows this would cause more harm and no benefit for her. He plans to meet with his in-laws and with the patient to have advanced directives/CODE STATUS clarified and finalized. He also states that he does not want the patient to come home and in their own home with the children. Patient apparently has voiced that she wants a hospital bed at home. Medical social work and case management are following. Review of Systems All systems: negative Constitutional: Reports anorexia, Reports fatigue, Reports lethargy, Reports malaise, Reports poor appetite, Reports weakness, Reports weight loss, Denies chills, Denies fever Eyes: bilateral photophobia, denies blurred vision, denies pain Ears, nose, mouth and throat: Reports headache, Denies dental pain, Denies mouth pain, Denies sore throat Cardiovascular: Reports leg edema, Denies chest pain, Denies palpitations, Denies shortness of breath, Denies syncope Respiratory: Denies congestion, Denies cough, Denies cough with sputum, Denies dyspnea, Denies excessive sputum, Denies hemoptysis, Denies home oxygen, Denies pain on inspiration, Denies wheezing Gastrointestinal: Reports abdominal pain, Reports bloating, Reports loss of appetite, Denies diarrhea, Denies nausea, Denies vomiting Genitourinary: Denies dysuria, Denies hematuria, Denies urgency, Denies urinary frequency Musculoskeletal: Denies myalgias Integumentary: Denies pruritus, Denies rash Neurological: Denies numbness, Denies weakness Psychiatric: Denies anxiety, Denies depression Endocrine: Denies fatigue, Denies weight change Past Medical History Past Medical History: Cancer Additional Past Medical History / Comment(s): stage 4 colon cancer-currently recieving chemo, neurofibromytosis, tachycardia History of Any Multi-Drug Resistant Organisms: None Reported Past Surgical History: Ablation, Orthopedic Surgery, Tonsillectomy Additional Past Surgical History / Comment(s): bowel resection-colostomy(pt stated her normal consistency of stool is pasty), rt ankle fatty tumor removed, mediport , uterine ablation Past Anesthesia/Blood Transfusion Reactions: No Reported Reaction Past Psychological History: No Psychological Hx Reported Additional Psychological History / Comment(s): pt stated she and her family moved from [place] to [place] in oct 2016. lives with spouse and 3 children. pt is independant. Smoking Status: Former smoker Past Alcohol Use History: None Reported Additional Past Alcohol Use History / Comment(s): started smoking at age 18(1993 ) and quit(2009) smoked 1/4 ppd. Patient was at home with her and 3 children that are 17 and under. Past Drug Use History: None Reported - Past Family History Father Family Medical History: Dementia Additional Family Medical History / Comment(s): dad from alzheimers Family Additional Family Medical History / Comment(s): Denies any family history of cancer or coronary artery disease Medications and Allergies Home Medications Medication Instructions Recorded Confirmed Type Calcium Carbonate [Tums] 500 mg PO TID PRN 05/21/17 06/07/17 History Ferrous Sulfate [Iron (65 MG 325 mg PO DAILY 05/21/17 06/07/17 History Elemental)] Furosemide [Lasix] 20 mg PO DAILY 05/21/17 06/07/17 History Ondansetron [Zofran] 4 mg PO QID PRN 05/21/17 06/07/17 History Lidocaine Viscous 2% [Xylocaine 5 ml MUCOUS MEM AC-TID #100 ml 05/24/17 Rx Viscous] Mag Hydrox/Al Hydrox/Simeth 30 ml PO TID #10 cup 05/24/17 06/07/17 Rx [Maalox] Metoprolol Tartrate [Lopressor] 25 mg PO BID #60 tab 05/24/17 06/07/17 Rx Nystatin 100,000 Unit/ml Susp 500,000 unit PO QID #20 cup 05/24/17 06/07/17 Rx [Mycostatin Oral Susp] Diphenoxylate HCl/Atropine 1 tab PO Q6HR PRN 06/07/17 06/07/17 History [Lomotil 2.5-0.025 mg Tablet] HYDROcodone/APAP 5-325MG [[place] 1 tab PO BID PRN 06/07/17 06/07/17 History 5-325] Allergies Allergy/AdvReac Type Severity Reaction Status Date / Time Penicillins Allergy Rapid Verified 04/27/18 18:55 Heart Rate promethazine [From Phenergan] Allergy Rash/Hives Verified 06/07/17 18:55 metoclopramide [From Reglan] AdvReac Dyspnea Verified 06/07/17 18:55 Physical Exam Vitals: Vital Signs Temp Pulse Pulse Resp BP BP Pulse Ox 06/14/17 07:30 97.9 F 105 H 16 95/64 94 L 06/13/17 22:50 97.2 F L 109 H 16 95/62 95 06/13/17 20:00 111 H 95/66 06/13/17 15:01 94 L 06/13/17 15:00 97.6 F 101 H 16 100/58 95 Intake and Output 06/13/17 06/14/17 06/14/17 22:59 06:59 14:59 Intake Total 1080 Balance 1080 Intake: Oral 1080 Other: Voiding Method Bedside Commode Bedside Commode # Voids 4 Gen: This is a cachectic 41-year-old female. She is in bed and appears to be comfortable. Patient is sleeping but arouses easily to verbal stimuli. Lites from the window is bothering her eyes and she is covering her face. HEENT: Head is atraumatic, bony prominence of all facial bones, oral mucous membranes are slightly dry. No thrush noted. NECK: Supple. No JVD. No lymphadenopathy. No thyromegaly. LUNGS: Clear to auscultation. No wheezes or rhonchi. No intercostal retractions. HEART: Regular rate and rhythm. No murmur. Tachycardic ABDOMEN: Distended with ascites. Bowel sounds are present. Colostomy in place to the left lower quadrant. No tenderness. EXTREMITIES: Bilateral 2+ pedal edema. Dorsalis pedis +1 bilaterally. Muscle wasting to extremities NEUROLOGICAL: Patient is awake, alert and oriented x3. Extreme generalized weakness noted. Results CBC & Chem 7: 06/14/17 06:55 06/14/17 06:55 Labs: Abnormal Lab Results - Last 24 Hours (Table) 06/13/17 06/13/17 06/13/17 Range/Units 09:09 09:09 11:26 WBC 24.7 H (3.8-10.6) k/uL RBC 3.22 L (3.80-5.40) m/uL Hgb 9.1 L (11.4-16.0) gm/dL Hct 30.2 L (34.0-46.0) % MCHC 30.0 L (31.0-37.0) g/dL RDW 16.9 H (11.5-15.5) % Sodium 133 L (137-145) mmol/L Chloride 92 L (98-107) mmol/L Creatinine 0.36 L (0.52-1.04) mg/dL Glucose 51 L (74-99) mg/dL POC Glucose (mg/dL) 59 L (75-99) mg/dL Calcium 7.9 L (8.4-10.2) mg/dL AST 111 H (14-36) U/L Alkaline Phosphatase 315 H (38-126) U/L Total Protein 5.1 L (6.3-8.2) g/dL Albumin 2.4 L (3.5-5.0) g/dL 06/13/17 06/13/17 06/13/17 Range/Units 11:50 12:14 12:48 WBC (3.8-10.6) k/uL RBC (3.80-5.40) m/uL Hgb (11.4-16.0) gm/dL Hct (34.0-46.0) % MCHC (31.0-37.0) g/dL RDW (11.5-15.5) % Sodium (137-145) mmol/L Chloride (98-107) mmol/L Creatinine (0.52-1.04) mg/dL Glucose (74-99) mg/dL POC Glucose (mg/dL) 66 L 63 L 130 H (75-99) mg/dL Calcium (8.4-10.2) mg/dL AST (14-36) U/L Alkaline Phosphatase (38-126) U/L Total Protein (6.3-8.2) g/dL Albumin (3.5-5.0) g/dL 06/13/17 06/14/17 06/14/17 Range/Units 17:38 06:55 06:55 WBC 20.2 H (3.8-10.6) k/uL RBC 3.08 L (3.80-5.40) m/uL Hgb 8.7 L (11.4-16.0) gm/dL Hct 29.1 L (34.0-46.0) % MCHC 29.8 L (31.0-37.0) g/dL RDW 17.0 H (11.5-15.5) % Sodium 132 L (137-145) mmol/L Chloride 92 L (98-107) mmol/L Creatinine 0.39 L (0.52-1.04) mg/dL Glucose 66 L (74-99) mg/dL POC Glucose (mg/dL) 109 H (75-99) mg/dL Calcium 8.0 L (8.4-10.2) mg/dL AST 87 H (14-36) U/L Alkaline Phosphatase 261 H (38-126) U/L Total Protein 4.8 L (6.3-8.2) g/dL Albumin 2.2 L (3.5-5.0) g/dL 06/14/17 Range/Units 07:20 WBC (3.8-10.6) k/uL RBC (3.80-5.40) m/uL Hgb (11.4-16.0) gm/dL Hct (34.0-46.0) % MCHC (31.0-37.0) g/dL RDW (11.5-15.5) % Sodium (137-145) mmol/L Chloride (98-107) mmol/L Creatinine (0.52-1.04) mg/dL Glucose (74-99) mg/dL POC Glucose (mg/dL) 203 H (75-99) mg/dL Calcium (8.4-10.2) mg/dL AST (14-36) U/L Alkaline Phosphatase (38-126) U/L Total Protein (6.3-8.2) g/dL Albumin (3.5-5.0) g/dL Microbiology - Last 24 Hours (Table) 06/10/17 11:40 Gram Stain - Final Ascites Fluid Body Fluid Culture - Final 06/07/17 19:10 Blood Culture - Final Blood No Growth after 144 hours Assessment and Plan Plan: This is a 41-year-old female who presents to hospital with stage IV colon cancer with metastatic disease with significant ascites, severe protein calorie malnutrition with muscle wasting and BMI would be much lower than 18 as documented secondary to ascites. The patient developed leukocytosis most likely secondary to metastatic liver disease. She is currently on Rocephin and vancomycin. Continue supportive care. Further recommendations as patient progresses. Impression and plan of care have been directed as dictated by the signing physician. Arlet Laws nurse practitioner acting as scribe for signing physician.
--- NOTE | 2017-06-14 10:06 | P.PN ---
Subjective Progress Note Date: 06/14/17 Principal diagnosis: abdominal pain Patient is a 41-year-old female presented past medical history of stage IV colon cancer with carcinomatosis and ascites currently being followed by Dr. Mejia and is on FOLFOX therapy with last dose approximately 2.5 weeks ago, neurofibromatosis, and remote tobacco abuse who presented to the hospital with complaints of abdominal pain. In the ER she underwent an extensive evaluation. She was found to be febrile with temperature 100.9 and tachycardic with a pulse of 113. Laboratory analysis was consistent with her prior anemia. She was also found to be hypokalemic and hypoglycemic. She underwent a CT abdomen and pelvis which was unchanged from prior but showed diffuse ascites and metastatic disease. There was concern for possible pneumonia and she was given a dose of vancomycin and Zosyn. She was admitted to the general medical floor for further monitoring and care. After admission and was determined that she did not have significant evidence to support a diagnosis of pneumonia. But there was concern for possible SBP and she was therefore transitioned to Rocephin. Interventional radiology has been consulted for drainage. GI was consulted and felt that drainage could be completed Saturday. On the morning of she did have one episode of hypoglycemia which was refractory to eating. She was given a half amp of D50 and started on D5 half-normal. Her blood sugar continued to be marginal despited D51/2NS. She need another 1/2 amp on 06/09 and her fluids were transitioned to D10. She underwent paracentesisi on 06/11 with removal of 2.8 L of fluid. She has continued to struggle with hypoglycemia despite D10. She was started on megace. Her WBC increased to 24 on 06/13. Repeat CXR and UA were unrevealing. Blood cultures were obtained and she was started on empiric vanco. Patient seen and examined at bedside. No shortness of breath, no nausea, no increased stool output from her ostomy. Wants to take a shower. No other complaints currently. Unsure weather her belly is getting more distended or not. Objective - Vital Signs Vital signs: Vital Signs Temp 97.9 F 06/14/17 07:30 Pulse 105 H 06/14/17 07:30 Resp 16 06/14/17 07:30 BP 95/64 06/14/17 07:30 Pulse Ox 94 L 06/14/17 07:30 Intake & Output 06/13/17 06/14/17 06/14/17 18:59 06:59 18:59 Intake Total 1080 Balance 1080 Intake: Oral 1080 Other: Voiding Method Bedside Commode Bedside Commode # Voids 4 - Exam General: non toxic, no distress, appears older than stated age, cachexia with temporal wasting Derm: warm, dry Head: atraumatic, normocephalic, symmetric, multiple mass like lesions noted with largest on the right side of forehead consistent with patient's known neurofibromatosis Eyes: EOMI, no lid lag, anicteric sclera Mouth: no lip lesion, mucus membranes dry Cardiovascular: S1 and S2 tachycardic, no murmur, positive posterior tibial pulse bilateral, Lungs: decreased bs right base, no accessory muscle use Abdominal: Distended soft, nontender to palpation, no guarding, no appreciable organomegaly Ext: no gross muscle atrophy, 3+ edema, no contractures Neuro: CN II-XI grossly intact, no focal neuro deficits Psych: Alert, oriented, appropriate affect - Labs CBC & Chem 7: 06/14/17 06:55 06/14/17 06:55 Labs: Abnormal Lab Results - Last 24 Hours (Table) 06/13/17 06/13/17 06/13/17 Range/Units 09:09 09:09 11:26 WBC 24.7 H (3.8-10.6) k/uL RBC 3.22 L (3.80-5.40) m/uL Hgb 9.1 L (11.4-16.0) gm/dL Hct 30.2 L (34.0-46.0) % MCHC 30.0 L (31.0-37.0) g/dL RDW 16.9 H (11.5-15.5) % Sodium 133 L (137-145) mmol/L Chloride 92 L (98-107) mmol/L Creatinine 0.36 L (0.52-1.04) mg/dL Glucose 51 L (74-99) mg/dL POC Glucose (mg/dL) 59 L (75-99) mg/dL Calcium 7.9 L (8.4-10.2) mg/dL AST 111 H (14-36) U/L Alkaline Phosphatase 315 H (38-126) U/L Total Protein 5.1 L (6.3-8.2) g/dL Albumin 2.4 L (3.5-5.0) g/dL 06/13/17 06/13/17 06/13/17 Range/Units 11:50 12:14 12:48 WBC (3.8-10.6) k/uL RBC (3.80-5.40) m/uL Hgb (11.4-16.0) gm/dL Hct (34.0-46.0) % MCHC (31.0-37.0) g/dL RDW (11.5-15.5) % Sodium (137-145) mmol/L Chloride (98-107) mmol/L Creatinine (0.52-1.04) mg/dL Glucose (74-99) mg/dL POC Glucose (mg/dL) 66 L 63 L 130 H (75-99) mg/dL Calcium (8.4-10.2) mg/dL AST (14-36) U/L Alkaline Phosphatase (38-126) U/L Total Protein (6.3-8.2) g/dL Albumin (3.5-5.0) g/dL 06/13/17 06/14/17 06/14/17 Range/Units 17:38 06:55 06:55 WBC 20.2 H (3.8-10.6) k/uL RBC 3.08 L (3.80-5.40) m/uL Hgb 8.7 L (11.4-16.0) gm/dL Hct 29.1 L (34.0-46.0) % MCHC 29.8 L (31.0-37.0) g/dL RDW 17.0 H (11.5-15.5) % Sodium 132 L (137-145) mmol/L Chloride 92 L (98-107) mmol/L Creatinine 0.39 L (0.52-1.04) mg/dL Glucose 66 L (74-99) mg/dL POC Glucose (mg/dL) 109 H (75-99) mg/dL Calcium 8.0 L (8.4-10.2) mg/dL AST 87 H (14-36) U/L Alkaline Phosphatase 261 H (38-126) U/L Total Protein 4.8 L (6.3-8.2) g/dL Albumin 2.2 L (3.5-5.0) g/dL 06/14/17 Range/Units 07:20 WBC (3.8-10.6) k/uL RBC (3.80-5.40) m/uL Hgb (11.4-16.0) gm/dL Hct (34.0-46.0) % MCHC (31.0-37.0) g/dL RDW (11.5-15.5) % Sodium (137-145) mmol/L Chloride (98-107) mmol/L Creatinine (0.52-1.04) mg/dL Glucose (74-99) mg/dL POC Glucose (mg/dL) 203 H (75-99) mg/dL Calcium (8.4-10.2) mg/dL AST (14-36) U/L Alkaline Phosphatase (38-126) U/L Total Protein (6.3-8.2) g/dL Albumin (3.5-5.0) g/dL Microbiology - Last 24 Hours (Table) 06/10/17 11:40 Gram Stain - Final Ascites Fluid Body Fluid Culture - Final 06/07/17 19:10 Blood Culture - Final Blood No Growth after 144 hours Assessment and Plan Assessment: leukocytosis - vancomycin in case of/bloodstream infection -blood cultures with one from port pending -UA and CXR negative -ID recs appreciated - monitor temp closely 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 Possible need for TPN plus plans for chemotherapy. Hyponatremia -Likely secondary to hypotonic fluid administration, third spacing form liver disease, and the use of Lasix -Monitor daily - will increase lasix to help with fluid retention and monitor closely. Sepsis with probable spontaneous bacterial peritonitis -Continue with Rocephin 2 g daily -Status post paracentesis on 06/10. Results were not consistent with SBP but due to duration of antibiotic use she will continue with treatment. -GI recommendations appreciated Ascities due to liver metastasis -Daily by mouth Lasix - s/p paracentesis 06/10 Hypoglycemia - Likely secondary to poor oral intake in combination with liver disease - Continue D10 Severe protein calorie malnutrition -Supplementation -Dietitian recommendation - on megace Mildly elevated liver enzymes likely due to infiltration of the liver from metastasis -No need to follow at this point in time Anemia, likely chemotherapy induced -Follow CBC intermittently Neurofibromatosis type I -Supportive care Sinus tachycardia -Extensive workup done during last admission from 05/21 through 06/07 including 2- D echo, thyroid testing, and multiple EKGs -On metoprolol 25 mg BID Lactic acidosis, resolved Hypokalemia, resolved Thrombocytosis, resolved Poor prognosis overall. Has had multiple discussions with oncology team regarding CODE STATUS. DVT prophylaxis: Heparin Discussed with: Patient, nursing Anticipated discharge: undetermined Anticipated discharge place: Undetermined A total of 35 minutes was spent on the care of this complex patient more than 50 % of the time was spent in counseling and care coordination.
[2017-06-14 11:18] LABS: Glucose,Whole Blood 66 mg/dL (75-99)
[2017-06-14 11:35] LABS: Glucose,Whole Blood 82 mg/dL (75-99)
[2017-06-14] MEDS: MORPHINE ORAL SOLN 10 MG/5 ML CUP PO PRN (13:44)
--- NOTE | 2017-06-14 17:03 | P.PN ---
Subjective Progress Note Date: 06/14/17 the patient's oral intake has improved on Megace. She is eating fairly small amounts but on a frequent basis. She continues on D10, with drops in blood sugar less frequent. she states that her pain is controlled. She has not noted increased tightness or distention of her abdomen. She continues to have bowel movements and passage of gas in her ostomy Objective - Vital Signs Vital signs: Vital Signs Temp 97.9 F 06/14/17 07:30 Pulse 105 H 06/14/17 07:30 Resp 16 06/14/17 07:30 BP 95/64 06/14/17 07:30 Pulse Ox 94 L 06/14/17 07:30 Intake & Output 06/13/17 06/14/17 06/14/17 18:59 06:59 18:59 Intake Total 1080 Balance 1080 Weight 47.174 kg Intake: Oral 1080 Other: Voiding Method Bedside Commode Bedside Commode Bedside Commode # Voids 4 - Constitutional General appearance: Present: no acute distress - EENT Eyes: Present: EOMI, PERRLA ENT: Present: hearing grossly normal, normal oropharynx - Respiratory Respiratory: bilateral: CTA - Cardiovascular Rhythm: regular Heart sounds: normal: S1, S2 - Gastrointestinal Gastrointestinal Comment(s): multiple abdominal masses, most prominent right lower quadrant, and periumbilical General gastrointestinal: Present: distended, hepatomegaly - Integumentary Integumentary Comment(s): multiple skin nodules, on upper extremities, and forehead, likely metastatic malignancy - Neurologic Neurologic: Present: CNII-XII intact - Musculoskeletal Musculoskeletal: Present: generalized weakness - Psychiatric Psychiatric: Present: A&O x's 3, appropriate affect, intact judgment & insight - Labs CBC & Chem 7: 06/14/17 06:55 06/14/17 06:55 Labs: Abnormal Lab Results - Last 24 Hours (Table) 06/13/17 06/14/17 06/14/17 Range/Units 17:38 06:55 06:55 WBC 20.2 H (3.8-10.6) k/uL RBC 3.08 L (3.80-5.40) m/uL Hgb 8.7 L (11.4-16.0) gm/dL Hct 29.1 L (34.0-46.0) % MCHC 29.8 L (31.0-37.0) g/dL RDW 17.0 H (11.5-15.5) % Sodium 132 L (137-145) mmol/L Chloride 92 L (98-107) mmol/L Creatinine 0.39 L (0.52-1.04) mg/dL Glucose 66 L (74-99) mg/dL POC Glucose (mg/dL) 109 H (75-99) mg/dL Calcium 8.0 L (8.4-10.2) mg/dL AST 87 H (14-36) U/L Alkaline Phosphatase 261 H (38-126) U/L Total Protein 4.8 L (6.3-8.2) g/dL Albumin 2.2 L (3.5-5.0) g/dL 06/14/17 06/14/17 Range/Units 07:20 11:17 WBC (3.8-10.6) k/uL RBC (3.80-5.40) m/uL Hgb (11.4-16.0) gm/dL Hct (34.0-46.0) % MCHC (31.0-37.0) g/dL RDW (11.5-15.5) % Sodium (137-145) mmol/L Chloride (98-107) mmol/L Creatinine (0.52-1.04) mg/dL Glucose (74-99) mg/dL POC Glucose (mg/dL) 203 H 66 L (75-99) mg/dL Calcium (8.4-10.2) mg/dL AST (14-36) U/L Alkaline Phosphatase (38-126) U/L Total Protein (6.3-8.2) g/dL Albumin (3.5-5.0) g/dL Microbiology - Last 24 Hours (Table) 06/13/17 12:00 Blood Culture - Preliminary Blood No Growth after 24 hours 06/13/17 12:10 Blood Culture - Preliminary Blood No Growth after 24 hours 06/10/17 11:40 Gram Stain - Final Ascites Fluid Body Fluid Culture - Final 06/07/17 19:10 Blood Culture - Final Blood No Growth after 144 hours Assessment and Plan (1) Hypoglycemia Narrative/Plan: this is felt to be due to a combination of decreased oral intake, and impaired glucose new alex because of liver dysfunction from metastatic malignancy and treatment effect. Blood glucose level is better with increase in patient's oral intake and ongoing D 10. The depth of blood glucose drops is improved. Case was discussed with the admitting service in detail. At this time it is felt that the patient is not a candidate for withdrawal of the D10 drip. we had been considering TPN, if the patient was unable to maintain her blood glucose. However if she is able to maintain that in a safe range with her current oral intake, and the D10, then she can potentially be continued on the D10 as an outpatient. This would potentially be much less toxic to her liver than TPN. This was discussed with the patient. Case was also discussed with the telehealth case manager who will check for coverage for D10. Current Visit: Yes Status: Acute Code(s): E16.2 - HYPOGLYCEMIA, UNSPECIFIED SNOMED Code(s): 600193637 (2) Colon cancer Narrative/Plan: s noted previously, the patient is felt to be a very poor candidate for additional treatment. It has been emphasized to her multiple times, that her prognosis is quite poor,and she would be at very high risk, given her current performance status, for severe side effects from any chemotherapy. in addition to the daily of anticipated benefit would be quite small. CODE STATUS is also been addressed multiple times. It has been emphasized to her and her family that her cancer is terminal, and even IF the chemotherapy were to be effective and tolerable, the degree of benefit in terms of survival or improvement in quality of life would most likely be quite small. she has expressed understanding of the same, but has reiterated, that she wants to continue active treatment and wants to remain a full code. If the pt is stable, she can be discharged and f/u as an outpt. Case d/w the admitting service. Current Visit: Yes Status: Acute Priority: High Code(s): C18.9 - MALIGNANT NEOPLASM OF COLON, UNSPECIFIED SNOMED Code(s): 617744523
[2017-06-14 17:15] LABS: Glucose,Whole Blood 93 mg/dL (75-99)
[2017-06-14 20:30] LABS: Glucose,Whole Blood 96 mg/dL (75-99)
--- NOTE | 2017-06-14 23:48 | P.CON ---
Consult Note - . Consult date: 06/14/17 Assessment/Plan:: female patient diagnosed with invasive carcinoma of the colon in August 2016 with metastases to the liver. By February 2017 there was progression of her disease. She completed 12 cycles of FOLFIRI/vectibix 04/17/2017 however repeat CAT scan done on May 01 showed progression of disease and she was treated with a second line therapy with FOLFOX and Avastin. She was recently admitted May 21 with abdominal ascites and underwent paracentesis. Patient was readmitted on 06/07 with abdominal pain, nausea, vomiting, fever and chills, tachycardia. Patient underwent repeat paracentesis with removal of 2.8 L with some improvement of her abdominal distention and discomfort. She has had essentially no oral intake and has no appetite. She has been placed on Megace and oncology is planning for TPN if oral intake does not improve to maintain blood sugar. Her blood sugars have been low as 35. She did have influenza testing done which was negative. Temperature max was on June 07 of 100.9. Her white count was initially 7.7 and is now 20.2. Her urinalysis is clear with nitrate and leukoesterase negative. Urine culture is strep and elect to group B. Blood cultures no growth after 144 hours. Liver enzymes are elevated. She has had a chest x-ray done yesterday showing bilateral consolidation, pulmonary nodules and pleural effusion. Upon presentation she also had an abdominal and pelvic CAT scan with contrast that revealed hepatomegaly with multiple liver masses consistent with metastatic disease and compared to May 01 is unchanged. Basilar pulmonary infiltrates and atelectasis. Increased pleural fluid compared to old exam. Abdominal has multiple masses consistent with carcinomatosis similar to old exam. Massive ascites. Patient denies any cough, sputum production, chest pain. She denies any abdominal pain at this time and her states her pain has been well controlled. Patient denies any dysuria, frequency. Patient states she is too weak to get out of bed by herself. She is currently on IV antibiotics with Rocephin and vancomycin. Her states she has had no change in colostomy output consistency. He denies diarrhea. Discussed in detail with patient's her poor prognosis. He has been told by one physician that the patient may not make it through the weekend and he acknowledges that this most likely is true and if not that her will occur soon after that. He is anxious to get a no CODE STATUS addressed by her as he does not want to make that decision for her at a later time when she is not able to do it herself. He also does not want her to go through CPR as he knows this would cause more harm and no benefit for her. He plans to meet with his in-laws and with the patient to have advanced directives/CODE STATUS clarified and finalized. He also states that he does not want the patient to come home and in their own home with the children. Patient apparently has voiced that she wants a hospital bed at home. Medical social work and case management are following.please see the consult note as dictated by nurse practitioner Mrs.Judy Laws. this 41-year-old womanhas evidence of metastatic colon carcinoma now with cachexia and progressive decline in difficulties with nutrition and hypoglycemia. She is receiving some nutritional support.As noted she is a candidate for palliative care and likely hospice given her rapid decline. Antibiotic therapy at this time will be of Rocephin with concerns to potential spontaneous bacterial peritonitis as a source of her illness. Workup is in progress. She does feel considerably better since the paracentesis since relieved some abdominal pain. Allowing her to ingest at least some nutrition which has been high sugar high calorie items to help with her hypoglycemia. It appears that her liver disease is so advanced she's not doing well with her glycogen stores and constantly is having no hypoglycemia. He has noted her prognosis is extremely poor. She Gideon is comfortable at this point in time. We'll monitor cultures and the overall plan.I agree with her evaluation assessment as dictated by nurse practitioner Mrs Arlet Laws
[2017-06-15] MEDS: HEPARIN SODIUM,PORCINE 5,000 UNIT/ML 1 ML VIAL SQ SCH ×3 (00:45→16:16)
[2017-06-15] MEDS: ONDANSETRON 4 MG TAB PO PRN ×4 (01:49→21:42)
[2017-06-15 02:04] LABS: Glucose,Whole Blood 148 mg/dL (75-99)
[2017-06-15] MEDS ORDERED: VANCOMYCIN TROUGH DUE 1 EACH MISC MISCELLANE ONE (04:00)
[2017-06-15] MEDS: VANCOMYCIN 750 MG in SODIUM CHLORIDE 0.9% 250 ML IVPB SCH ×3 (05:37→21:42)
[2017-06-15] MEDS: DEXTROSE 10% IN WATER 500 ML in EMPTY BAG 1 BAG IV SCH ×3 (05:38→19:18)
[2017-06-15 06:58] LABS: Glucose,Whole Blood 70 mg/dL (75-99)
[2017-06-15] MEDS: cefTRIAXone IN SWFI 2,000 MG/20 ML SYRINGE IVP SCH (08:55)
[2017-06-15] MEDS: METOPROLOL TARTRATE 25 MG TAB PO SCH ×2 (09:08→21:42)
--- NOTE | 2017-06-15 09:49 | P.PN ---
Subjective Progress Note Date: 06/15/17 Principal diagnosis: Patient is a 41-year-old female presented past medical history of stage IV colon cancer with carcinomatosis and ascites currently being followed by Dr. Mejia and is on FOLFOX therapy with last dose approximately 2.5 weeks ago, neurofibromatosis, and remote tobacco abuse who presented to the hospital with complaints of abdominal pain. In the ER she underwent an extensive evaluation. She was found to be febrile with temperature 100.9 and tachycardic with a pulse of 113. Laboratory analysis was consistent with her prior anemia. She was also found to be hypokalemic and hypoglycemic. She underwent a CT abdomen and pelvis which was unchanged from prior but showed diffuse ascites and metastatic disease. There was concern for possible pneumonia and she was given a dose of vancomycin and Zosyn. She was admitted to the general medical floor for further monitoring and care. After admission and was determined that she did not have significant evidence to support a diagnosis of pneumonia. But there was concern for possible SBP and she was therefore transitioned to Rocephin. Interventional radiology has been consulted for drainage. GI was consulted and felt that drainage could be completed Saturday. jose has profound hypoglycemia which has necessitated a D10 drip with additional boluses during her hospitalization. Initially we were considering discharge home on TPN however after starting Megace she is eating small amounts throughout the day but still having hypoglycemic episodes. We believe a large part of this is due to her liver disease and her not being able to adequately perform glycogenolysis and gluconeogenesis. However it appears she may be able to maintain her fat and protein through oral intake. We're also concerned that she already has advanced liver disease and placing her on TPN would be further toxic to the liver in addition to her chemotherapy that is also liver toxic. Ideally we would like to discharge her home on a continuous D10 infusion. We feel that this also may affect suppress her appetite less than the TPN as well. Case management is looking for approval through home health therapy. Her white blood cell count has also increased which may be secondary to her rapid weight progressive metastatic disease or reactive to her hypoglycemia. However she would also be at risk for bloodstream infection. She is currently receiving Vanco and Rocephin IV. She had blood cultures drawn yesterday. She will need to maintain hospitalization until blood cultures are negative at least 48 hours. Likely she will be discharged home on Saturday at the earliest. Patient seen and examined at bedside, reports that she recently woke up. Denies any complaints of chest pain shortness of breath or cough or abdominal pain. No complaints no acute events overnight Objective - Vital Signs Vital signs: Vital Signs Temp 98.1 F 06/15/17 07:00 Pulse 110 H 06/15/17 07:00 Resp 16 06/15/17 07:00 BP 107/71 06/15/17 07:00 Pulse Ox 92 L 06/15/17 07:00 Intake & Output 06/14/17 06/15/17 06/15/17 18:59 06:59 18:59 Weight 47.174 kg Other: Voiding Method Bedside Commode Bedside Commode # Voids 5 - Exam General: non toxic, no distress, appears older than stated age, cachexia with temporal wasting Derm: warm, dry Head: atraumatic, normocephalic, symmetric, multiple mass like lesions noted with largest on the right side of forehead consistent with patient's known neurofibromatosis Eyes: EOMI, no lid lag, anicteric sclera Mouth: no lip lesion, mucus membranes dry Cardiovascular: S1 and S2 tachycardic, no murmur, positive posterior tibial pulse bilateral, Lungs: decreased bs right base, no accessory muscle use Abdominal: Distended soft, nontender to palpation, no guarding, no appreciable organomegaly Ext: no gross muscle atrophy, 3+ edema, no contractures Neuro: CN II-XI grossly intact, no focal neuro deficits Psych: Alert, oriented, appropriate affect - Labs CBC & Chem 7: 06/14/17 06:55 06/14/17 06:55 Labs: Abnormal Lab Results - Last 24 Hours (Table) 06/14/17 06/15/17 06/15/17 Range/Units 11:17 02:02 06:46 POC Glucose (mg/dL) 66 L 148 H 70 L (75-99) mg/dL Microbiology - Last 24 Hours (Table) 06/13/17 12:00 Blood Culture - Preliminary Blood No Growth after 24 hours 06/13/17 12:10 Blood Culture - Preliminary Blood No Growth after 24 hours 06/10/17 11:40 Gram Stain - Final Ascites Fluid Body Fluid Culture - Final Assessment and Plan Assessment: leukocytosis - vancomycin in case of/bloodstream infection -blood cultures with one from port pending -UA and CXR negative -ID recs appreciated - monitor temp closely 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 Possible need for TPN plus plans for chemotherapy. Hyponatremia -Likely secondary to hypotonic fluid administration, third spacing form liver disease, and the use of Lasix -Monitor daily - will increase lasix to help with fluid retention and monitor closely. Sepsis with probable spontaneous bacterial peritonitis -Continue with Rocephin 2 g daily -Status post paracentesis on 06/10. Results were not consistent with SBP but due to duration of antibiotic use she will continue with treatment. -GI recommendations appreciated Ascities due to liver metastasis -Daily by mouth Lasix - s/p paracentesis 06/10 Hypoglycemia - Likely secondary to poor oral intake in combination with liver disease - Continue D10 Severe protein calorie malnutrition -Supplementation -Dietitian recommendation - on megace Mildly elevated liver enzymes likely due to infiltration of the liver from metastasis -No need to follow at this point in time Anemia, likely chemotherapy induced -Follow CBC intermittently Neurofibromatosis type I -Supportive care Sinus tachycardia -Extensive workup done during last admission from 05/21 through 06/07 including 2- D echo, thyroid testing, and multiple EKGs -On metoprolol 25 mg BID Lactic acidosis, resolved Hypokalemia, resolved Thrombocytosis, resolved Poor prognosis overall. Has had multiple discussions with oncology team regarding CODE STATUS.
[2017-06-15] MEDS: LIDOCAINE VISCOUS 2% 15 ML CUP MUCOUS MEM SCH ×3 (09:54→19:28)
[2017-06-15] MEDS: NYSTATIN 100,000 UNIT/ML SUSP 500,000 UNIT/5 ML CUP PO SCH ×4 (12:11→21:43)
[2017-06-15] MEDS: MEGESTROL 400 MG/10 ML CUP PO SCH (12:11)
[2017-06-15] MEDS: FUROSEMIDE 40 MG TAB PO SCH ×2 (12:11→16:16)
[2017-06-15 12:13] LABS: Glucose,Whole Blood 70 mg/dL (75-99)
[2017-06-15] MEDS: CALCIUM CARBONATE 500 MG CHEWABLE PO PRN (12:39)
[2017-06-15] MEDS: FERROUS SULFATE 325 MG TAB PO SCH (12:39)
[2017-06-15] MEDS: MORPHINE SULFATE ER 30 MG TABLET PO SCH ×2 (13:33→21:42)
[2017-06-15] MEDS: MORPHINE ORAL SOLN 10 MG/5 ML CUP PO PRN (14:26)
[2017-06-15 18:09] LABS: Glucose,Whole Blood 90 mg/dL (75-99)
[2017-06-15] MEDS: ACETAMINOPHEN TAB 325 MG TAB PO PRN (19:17)
[2017-06-15 22:21] LABS: Glucose,Whole Blood 153 mg/dL (75-99)
[2017-06-15] MEDS: ZOLPIDEM 5 MG TAB PO SCH (22:22)
[2017-06-15 23:19] VITALS: RESP 16
[2017-06-16] MEDS: HEPARIN SODIUM,PORCINE 5,000 UNIT/ML 1 ML VIAL SQ SCH ×3 (00:18→16:11)
[2017-06-16] MEDS: DEXTROSE 10% IN WATER 500 ML in EMPTY BAG 1 BAG IV SCH ×2 (02:11→09:31)
[2017-06-16] MEDS: VANCOMYCIN 750 MG in SODIUM CHLORIDE 0.9% 250 ML IVPB SCH ×3 (05:38→20:54)
[2017-06-16 07:37] LABS: Glucose,Whole Blood 234 mg/dL (75-99)
[2017-06-16 07:53] LABS: Anion Gap 13 mmol/L; Blood Urea Nitrogen 12 mg/dL (7-17); Carbon Dioxide 29 mmol/L (22-30); Chloride 92 mmol/L (98-107); Sodium 134 mmol/L (137-145)
[2017-06-16 08:02] LABS: Glucose 50 mg/dL (74-99); Potassium 2.8 mmol/L (3.5-5.1)
[2017-06-16 08:11] LABS: Glucose,Whole Blood 61 mg/dL (75-99)
[2017-06-16] MEDS ORDERED: Potassium Replacement Protocol 1 EACH MISC MISCELLANE PRN ×3 (08:15→15:23)
[2017-06-16] MEDS: MEGESTROL 400 MG/10 ML CUP PO SCH (08:28)
[2017-06-16 08:29] LABS: Glucose,Whole Blood 84 mg/dL (75-99)
[2017-06-16] MEDS: MORPHINE SULFATE ER 30 MG TABLET PO SCH ×2 (08:29→20:54)
[2017-06-16] MEDS: NYSTATIN 100,000 UNIT/ML SUSP 500,000 UNIT/5 ML CUP PO SCH ×4 (08:29→20:55)
[2017-06-16] MEDS: FERROUS SULFATE 325 MG TAB PO SCH (08:29)
[2017-06-16] MEDS: ONDANSETRON 4 MG TAB PO PRN ×2 (08:35→17:43)
[2017-06-16] MEDS: LIDOCAINE VISCOUS 2% 15 ML CUP MUCOUS MEM SCH ×3 (08:48→17:47)
[2017-06-16] MEDS: cefTRIAXone IN SWFI 2,000 MG/20 ML SYRINGE IVP SCH (08:52)
[2017-06-16] MEDS: FUROSEMIDE 40 MG TAB PO SCH ×2 (08:52→16:12)
--- NOTE | 2017-06-16 09:06 | P.PN ---
Subjective Progress Note Date: 06/16/17 The patient remains overall weak. She continues to tolerate orals, small amounts on a regular basis. Ostomy is functioning. Pain control is overall satisfactory. Objective - Vital Signs Vital signs: Vital Signs Temp 97.4 F L 06/16/17 07:20 Pulse 108 H 06/16/17 07:20 Resp 16 06/16/17 07:20 BP 96/68 06/16/17 07:20 Pulse Ox 95 06/16/17 07:20 Intake & Output 06/15/17 06/16/17 06/16/17 18:59 06:59 18:59 Other: Voiding Method Bedside Commode Bedside Commode # Voids 5 3 - Constitutional General appearance: Present: no acute distress - EENT Eyes: Present: PERRLA ENT: Present: normal oropharynx - Respiratory Respiratory: bilateral: diminished - Cardiovascular Rhythm: regular Heart sounds: normal: S1, S2 - Gastrointestinal Gastrointestinal Comment(s): Scattered abdominal masses, most prominent periumbilical and right lower quadrant, stable General gastrointestinal: Present: distended, normal bowel sounds, soft - Neurologic Neurologic: Present: CNII-XII intact - Musculoskeletal Musculoskeletal: Present: generalized weakness, strength equal bilaterally - Psychiatric Psychiatric: Present: A&O x's 3, appropriate affect - Labs CBC & Chem 7: 06/14/17 06:55 06/16/17 07:16 Labs: Abnormal Lab Results - Last 24 Hours (Table) 06/15/17 06/15/17 06/16/17 Range/Units 11:57 22:15 07:16 Sodium 134 L (137-145) mmol/L Potassium 2.8 L* (3.5-5.1) mmol/L Chloride 92 L (98-107) mmol/L Creatinine 0.42 L (0.52-1.04) mg/dL Glucose 50 L* (74-99) mg/dL POC Glucose (mg/dL) 70 L 153 H (75-99) mg/dL Calcium 8.0 L (8.4-10.2) mg/dL 06/16/17 06/16/17 Range/Units 07:24 08:06 Sodium (137-145) mmol/L Potassium (3.5-5.1) mmol/L Chloride (98-107) mmol/L Creatinine (0.52-1.04) mg/dL Glucose (74-99) mg/dL POC Glucose (mg/dL) 234 H 61 L (75-99) mg/dL Calcium (8.4-10.2) mg/dL Microbiology - Last 24 Hours (Table) 06/13/17 12:00 Blood Culture - Preliminary Blood No Growth after 48 hours 06/13/17 12:10 Blood Culture - Preliminary Blood No Growth after 48 hours Assessment and Plan (1) Hypoglycemia Narrative/Plan: Overall blood sugar pattern is improved with ongoing D10. Patient has been eating, on a fairly regular basis though small amounts at which time. Based on this pattern, she can likely be discharged with the D10 drip and not require for TPN. Continue to monitor Current Visit: Yes Status: Acute Code(s): E16.2 - HYPOGLYCEMIA, UNSPECIFIED SNOMED Code(s): 450520300 (2) Colon cancer Narrative/Plan: As noted multiple times previously, the patient has extensive metastatic disease which is not curable. She is felt to be a very poor candidate for chemotherapy because of her poor performance status. However the patient has consistently indicated that she wants to have active treatment, as well as full code, despite our strong recommendations to the contrary. If the patient is stable, the plan would be for her to be discharged early next week, and then follow-up in the office to resume chemotherapy. Her prognosis is felt to be very poor. Current Visit: Yes Status: Acute Priority: High Code(s): C18.9 - MALIGNANT NEOPLASM OF COLON, UNSPECIFIED SNOMED Code(s): 673537184
[2017-06-16] MEDS: POTASSIUM CHLORIDE 10 MEQ in WATER FOR INJECTION 1 100ML.BAG IVPB SCH ×6 (09:32→18:52)
--- NOTE | 2017-06-16 10:08 | P.PN ---
Subjective Progress Note Date: 06/16/17 Principal diagnosis: Patient is a 41-year-old female presented past medical history of stage IV colon cancer with carcinomatosis and ascites currently being followed by Dr. Mejia and is on FOLFOX therapy with last dose approximately 2.5 weeks ago, neurofibromatosis, and remote tobacco abuse who presented to the hospital with complaints of abdominal pain. In the ER she underwent an extensive evaluation. She was found to be febrile with temperature 100.9 and tachycardic with a pulse of 113. Laboratory analysis was consistent with her prior anemia. She was also found to be hypokalemic and hypoglycemic. She underwent a CT abdomen and pelvis which was unchanged from prior but showed diffuse ascites and metastatic disease. There was concern for possible pneumonia and she was given a dose of vancomycin and Zosyn. She was admitted to the general medical floor for further monitoring and care. After admission and was determined that she did not have significant evidence to support a diagnosis of pneumonia. But there was concern for possible SBP and she was therefore transitioned to Rocephin. Interventional radiology has been consulted for drainage. GI was consulted and felt that drainage could be completed Saturday. jose has profound hypoglycemia which has necessitated a D10 drip with additional boluses during her hospitalization. Initially we were considering discharge home on TPN however after starting Megace she is eating small amounts throughout the day but still having hypoglycemic episodes. We believe a large part of this is due to her liver disease and her not being able to adequately perform glycogenolysis and gluconeogenesis. However it appears she may be able to maintain her fat and protein through oral intake. We're also concerned that she already has advanced liver disease and placing her on TPN would be further toxic to the liver in addition to her chemotherapy that is also liver toxic. Ideally we would like to discharge her home on a continuous D10 infusion. We feel that this also may affect suppress her appetite less than the TPN as well. Case management is looking for approval through home health therapy. Her white blood cell count has also increased which may be secondary to her rapid weight progressive metastatic disease or reactive to her hypoglycemia. However she would also be at risk for bloodstream infection. She is currently receiving Vanco and Rocephin IV. She had blood cultures drawn yesterday. She will need to maintain hospitalization until blood cultures are negative at least 48 hours. Likely she will be discharged home on Saturday at the earliest. Patient seen and examined at bedside, reports that she recently woke up. Denies any complaints of chest pain shortness of breath or cough or abdominal pain. No complaints no acute events overnight patient had a few bites of breakfast , reports that she appears to be eating more, Objective - Vital Signs Vital signs: Vital Signs Temp 97.4 F L 06/16/17 07:20 Pulse 108 H 06/16/17 09:43 Resp 16 06/16/17 07:20 BP 96/68 06/16/17 07:20 Pulse Ox 95 06/16/17 07:20 Intake & Output 06/15/17 06/16/17 06/16/17 18:59 06:59 18:59 Other: Voiding Method Bedside Commode Bedside Commode Toilet # Voids 5 3 - Exam General: non toxic, no distress, appears older than stated age, cachexia with temporal wasting Derm: warm, dry Head: atraumatic, normocephalic, symmetric, multiple mass like lesions noted with largest on the right side of forehead consistent with patient's known neurofibromatosis Eyes: EOMI, no lid lag, anicteric sclera Mouth: no lip lesion, mucus membranes dry Cardiovascular: S1 and S2 tachycardic, no murmur, positive posterior tibial pulse bilateral, Lungs: decreased bs right base, no accessory muscle use Abdominal: Distended soft, nontender to palpation, no guarding, no appreciable organomegaly Ext: no gross muscle atrophy, 3+ edema, no contractures Neuro: CN II-XI grossly intact, no focal neuro deficits Psych: Alert, oriented, appropriate affect - Labs CBC & Chem 7: 06/14/17 06:55 06/16/17 07:16 Labs: Abnormal Lab Results - Last 24 Hours (Table) 06/15/17 06/15/17 06/16/17 Range/Units 11:57 22:15 07:16 Sodium 134 L (137-145) mmol/L Potassium 2.8 L* (3.5-5.1) mmol/L Chloride 92 L (98-107) mmol/L Creatinine 0.42 L (0.52-1.04) mg/dL Glucose 50 L* (74-99) mg/dL POC Glucose (mg/dL) 70 L 153 H (75-99) mg/dL Calcium 8.0 L (8.4-10.2) mg/dL Magnesium (1.6-2.3) mg/dL 06/16/17 06/16/17 06/16/17 Range/Units 07:16 07:24 08:06 Sodium (137-145) mmol/L Potassium (3.5-5.1) mmol/L Chloride (98-107) mmol/L Creatinine (0.52-1.04) mg/dL Glucose (74-99) mg/dL POC Glucose (mg/dL) 234 H 61 L (75-99) mg/dL Calcium (8.4-10.2) mg/dL Magnesium 1.4 L (1.6-2.3) mg/dL Microbiology - Last 24 Hours (Table) 06/13/17 12:00 Blood Culture - Preliminary Blood No Growth after 48 hours 06/13/17 12:10 Blood Culture - Preliminary Blood No Growth after 48 hours Assessment and Plan Assessment: leukocytosis - vancomycin in case of/bloodstream infection -blood cultures with one from port pending -UA and CXR negative -ID recs appreciated - monitor temp closely 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 Possible need for TPN plus plans for chemotherapy. Hyponatremia -Likely secondary to hypotonic fluid administration, third spacing form liver disease, and the use of Lasix -Monitor daily - will increase lasix to help with fluid retention and monitor closely. Sepsis with probable spontaneous bacterial peritonitis -Continue with Rocephin 2 g daily -Status post paracentesis on 06/10. Results were not consistent with SBP but due to duration of antibiotic use she will continue with treatment. -GI recommendations appreciated Ascities due to liver metastasis -Daily by mouth Lasix - s/p paracentesis 06/10 Hypoglycemia - Likely secondary to poor oral intake in combination with liver disease - Continue D10 Severe protein calorie malnutrition -Supplementation -Dietitian recommendation - on megace Mildly elevated liver enzymes likely due to infiltration of the liver from metastasis -No need to follow at this point in time Anemia, likely chemotherapy induced -Follow CBC intermittently Neurofibromatosis type I -Supportive care Sinus tachycardia -Extensive workup done during last admission from 05/21 through 06/07 including 2- D echo, thyroid testing, and multiple EKGs -On metoprolol 25 mg BID Lactic acidosis, resolved Hypokalemia, resolved Thrombocytosis, resolved Poor prognosis overall. Has had multiple discussions with oncology team regarding CODE STATUS.
[2017-06-16] MEDS: WATER IV SCH ×6 (10:27→23:55)
[2017-06-16] MEDS: DEXTROSE 10% IV SCH ×6 (10:27→23:55)
[2017-06-16] MEDS: POTASSIUM CHLORIDE IV SCH ×6 (10:27→23:55)
[2017-06-16] MEDS: METOPROLOL TARTRATE 25 MG TAB PO SCH ×2 (10:29→20:55)
[2017-06-16 11:40] LABS: Glucose,Whole Blood 84 mg/dL (75-99)
[2017-06-16] MEDS: MAGNESIUM SULFATE-D5W PMX 1 GM in DEXTROSE/WATER 1 100ML.BAG IVPB SCH ×2 (14:48→16:12)
[2017-06-16] MEDS: CALCIUM CARBONATE 500 MG CHEWABLE PO PRN (16:51)
[2017-06-16 17:18] LABS: Glucose,Whole Blood 80 mg/dL (75-99)
[2017-06-16 20:04] LABS: Glucose,Whole Blood 141 mg/dL (75-99)
[2017-06-16] MEDS: ZOLPIDEM 5 MG TAB PO SCH (20:55)
[2017-06-16 21:34] LABS: Magnesium 1.7 mg/dL (1.6-2.3)
[2017-06-17] MEDS ORDERED: POTASSIUM CHLORIDE 20 MEQ in WATER FOR INJECTION 1 100ML.BAG IVPB ONE ×2 (00:01→05:22)
[2017-06-17] MEDS ORDERED: Potassium Replacement Protocol 1 EACH MISC MISCELLANE PRN ×2 (00:01→05:22)
[2017-06-17] MEDS: HEPARIN SODIUM,PORCINE 5,000 UNIT/ML 1 ML VIAL SQ SCH ×3 (00:03→17:16)
[2017-06-17] MEDS ORDERED: VANCOMYCIN TROUGH DUE 1 EACH MISC MISCELLANE ONE (04:00)
[2017-06-17 05:07] LABS: Anion Gap 13 mmol/L; Blood Urea Nitrogen 11 mg/dL (7-17); Calcium 7.9 mg/dL (8.4-10.2); Carbon Dioxide 28 mmol/L (22-30); Chloride 92 mmol/L (98-107); Glucose 52 mg/dL (74-99); Potassium 3.3 mmol/L (3.5-5.1); Sodium 133 mmol/L (137-145)
[2017-06-17] MEDS: VANCOMYCIN 750 MG in SODIUM CHLORIDE 0.9% 250 ML IVPB SCH (05:27)
[2017-06-17 05:36] LABS: Glucose,Whole Blood 118 mg/dL (75-99)
[2017-06-17 07:16] LABS: Glucose,Whole Blood 62 mg/dL (75-99)
[2017-06-17 07:29] LABS: Glucose,Whole Blood 59 mg/dL (75-99)
[2017-06-17] MEDS ORDERED: DEXTROSE 50%-WATER 50 ML SYRINGE IVP STA (07:33)
[2017-06-17] MEDS: WATER IV SCH ×8 (07:46→23:39)
[2017-06-17] MEDS: POTASSIUM CHLORIDE IV SCH ×4 (07:46→13:38)
[2017-06-17] MEDS: DEXTROSE 10% IV SCH ×8 (07:46→23:39)
[2017-06-17] MEDS: MEGESTROL 400 MG/10 ML CUP PO SCH (07:47)
[2017-06-17] MEDS: FERROUS SULFATE 325 MG TAB PO SCH (07:47)
[2017-06-17] MEDS: FUROSEMIDE 40 MG TAB PO SCH ×2 (07:48→17:17)
[2017-06-17] MEDS: LIDOCAINE VISCOUS 2% 15 ML CUP MUCOUS MEM SCH ×3 (07:48→17:17)
[2017-06-17] MEDS: NYSTATIN 100,000 UNIT/ML SUSP 500,000 UNIT/5 ML CUP PO SCH ×4 (07:49→22:23)
[2017-06-17] MEDS: MORPHINE SULFATE ER 30 MG TABLET PO SCH ×2 (07:58→22:22)
[2017-06-17 08:22] LABS: Glucose,Whole Blood 150 mg/dL (75-99)
[2017-06-17] MEDS: cefTRIAXone IN SWFI 2,000 MG/20 ML SYRINGE IVP SCH (09:49)
[2017-06-17] MEDS: METOPROLOL TARTRATE 25 MG TAB PO SCH (09:49)
[2017-06-17 10:33] LABS: Anisocytosis Slight; Basophils % (A) 0 %; Eosinophils % (A) 0 %; HCT 27.7 % (34.0-46.0); HGB 8.4 gm/dL (11.4-16.0); Hypochromasia Moderate; Lymphocytes # (A) 0.3 k/uL (1.0-4.8); Lymphocytes % (A) 1 %; MCH 28.3 pg (25.0-35.0); MCHC 30.5 g/dL (31.0-37.0); Mean Platelet Volume 8.4; Monocytes # (A) 0.8 k/uL (0-1.0); Monocytes % (A) 4 %; Neutrophils # (A) 19.8 k/uL (1.3-7.7); Neutrophils % (A) 94 %; Platelet Count 196 k/uL (150-450); RBC 2.98 m/uL (3.80-5.40); RDW 16.9 % (11.5-15.5); WBC 21.1 k/uL (3.8-10.6)
[2017-06-17 10:47] LABS: Glucose,Whole Blood 83 mg/dL (75-99)
--- NOTE | 2017-06-17 12:26 | P.PN ---
Subjective Progress Note Date: 06/17/17 Principal diagnosis: patient seen for follow up for SBP, hypoglycemia and stage IV colon cancer patient seen and examined, she has no new complaints today, continues to have leg swelling. She denies any fever, or abd pain. She is comfortable with breathing. tolerating PO intake no nausea or vomiting, but very poor appetite. Objective - Vital Signs Vital signs: Vital Signs Temp 97.6 F 06/17/17 07:00 Pulse 98 06/17/17 07:00 Resp 16 06/17/17 07:00 BP 113/77 06/17/17 07:00 Pulse Ox 95 06/17/17 07:00 Intake & Output 06/16/17 06/17/17 06/17/17 18:59 06:59 18:59 Other: Voiding Method Toilet Toilet Toilet # Voids 3 13 - Exam Constitutional: vital signs stable, Not in acute distress, pleasant, conversant Lungs: Clear to auscultation bilaterally, clear to percussion, normal respiratory effort no use of accessory muscles Cardiovascular: Regular rate and rhythm, no murmurs, no gallops, no rubs, bilateral +2 leg edema Gastrointestinal: soft, no tenderness to palpation, palpable multiple hard masses throughout, ostomy bag in place and functional no bleeding, BS positive, Extremities: No digital cyanosis or clubbing, peripheral pulses palpable and equal over bilateral radial arteries , no calf muscle tenderness Psych: Alert, oriented to place, person and time, appropriate affect, intact judgment - Labs CBC & Chem 7: 06/17/17 10:21 06/17/17 04:26 Labs: Abnormal Lab Results - Last 24 Hours (Table) 06/16/17 06/16/17 06/16/17 Range/Units 14:35 20:03 21:05 Sodium (137-145) mmol/L Potassium 2.9 L* 3.0 L* (3.5-5.1) mmol/L Chloride (98-107) mmol/L Creatinine (0.52-1.04) mg/dL Glucose (74-99) mg/dL POC Glucose (mg/dL) 141 H (75-99) mg/dL Calcium (8.4-10.2) mg/dL 06/17/17 06/17/17 06/17/17 Range/Units 04:26 05:35 07:02 Sodium 133 L (137-145) mmol/L Potassium 3.3 L (3.5-5.1) mmol/L Chloride 92 L (98-107) mmol/L Creatinine 0.40 L (0.52-1.04) mg/dL Glucose 52 L (74-99) mg/dL POC Glucose (mg/dL) 118 H 62 L (75-99) mg/dL Calcium 7.9 L (8.4-10.2) mg/dL 06/17/17 06/17/17 Range/Units 07:27 08:19 Sodium (137-145) mmol/L Potassium (3.5-5.1) mmol/L Chloride (98-107) mmol/L Creatinine (0.52-1.04) mg/dL Glucose (74-99) mg/dL POC Glucose (mg/dL) 59 L 150 H (75-99) mg/dL Calcium (8.4-10.2) mg/dL Microbiology - Last 24 Hours (Table) 06/13/17 12:00 Blood Culture - Preliminary Blood No Growth after 72 hours 06/13/17 12:10 Blood Culture - Preliminary Blood No Growth after 72 hours Assessment and Plan Assessment: 41-year-old female with history of neurofibromatosis type I and stage IV colon cancer with metastases to the liver status post diverting colostomy currently on second line chemotherapy with FOLFOX last dose approximately 3.5 weeks ago, who presented to the hospital with complaints of abdominal pain. In the ER she underwent an extensive evaluation. She was found to be febrile with temperature 100.9 and tachycardic with a pulse of 113. Laboratory analysis was consistent with her prior anemia. She was also found to be hypokalemic and hypoglycemic. She underwent a CT abdomen and pelvis which was unchanged from prior but showed diffuse ascites and metastatic disease. There was concern for possible pneumonia and she was given a dose of vancomycin and Zosyn. She was admitted to the general medical floor for further monitoring and care. After admission and was determined that she did not have significant evidence to support a diagnosis of pneumonia. But there was concern for possible SBP and she was therefore transitioned to Rocephin. Interventional radiology has been consulted for drainage. GI was consulted and felt that drainage could be completed Saturday. atient has profound hypoglycemia which has necessitated a D10 drip with additional boluses during her hospitalization. Initially we were considering discharge home on TPN however after starting Megace she is eating small amounts throughout the day but still having hypoglycemic episodes but completely asymptomatic. We believe a large part of this is due to her liver disease and her not being able to adequately perform glycogenolysis and gluconeogenesis. However it appears she may be able to maintain her fat and protein through oral intake. We're also concerned that she already has advanced liver disease and placing her on TPN would be further toxic to the liver in addition to her chemotherapy that is also liver toxic. Her white blood cell count has also increased which may be secondary to her rapid weight progressive metastatic disease or reactive to her hypoglycemia. Blood stream infection ruled out with negative blood cultures. currently leukocytosis trending down. She finished a course of Rocephine 2 g daily for SBP, and vancomycin stopped due to negative blood cultures and no clinical evidence of infection. Today 06/17 I had a discussion with the patient regarding PEG tube insertion to supplement her nutrition and keep her blood sugars at normal level and avoid hypoglycemia. After discussing her options, and the way she would use the PEG ( still able to enjoy food through her mouth which we encourage, but to supplemnt with ensure through bolus feeding through the PEG tube to help with her hypoglycemia and nutritional status) she liked the idea and would like to consider this option, I discussed with GI team who will see the patient and consent her for the procedure, if all agrees , she would get the procedure done on 06/18 , and possibly be discharged on 06/19. Plan: #Hypoglycemia - Likely secondary to poor oral intake in combination with advanced liver disease - Continue D10 for now' - Possible PEG tube insertion , to support her nutritional status , and support her blood sugars with bolus feeding once discharged. #Severe protein calorie malnutrition -Supplementation -Dietitian recommendation - on megace - PEG tube bolus feeding if patient ends up getting the PEG tube #leukocytosis, reactive, no evidence of systemic infection at this point blood cultures are negative to date UA and CXR negative monitor temp closely afebrile discontinue vancomycin #Sepsis resolved #possible Spontaneous bacterial peritonitis , finished 7 days of high dose rocephine s/p paracentesis continue with long course of prophylactic antibiotics to prevent recurrence of SBP, cipro 500 daily PO, possible side effects of tendon rupture were discussed with the patient and her , who verbalized understanding and agreement #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 #Electrolyte imbalance Hyponatremia -Likely secondary to hypotonic fluid administration, third spacing form liver disease, and the use of Lasix -Monitor daily Hypokalemia - diuretics side effect, and poor nutritional status - monitor and replace as needed - check Mg level #Ascities due to liver metastasis -Daily by mouth Lasix - s/p paracentesis 06/10 - check limited abd US , to assess for any recurrence # Mildly elevated liver enzymes likely due to infiltration of the liver from metastasis - OP follow up # Anemia, 2/2 chronic disease and chemotherapy -Follow CBC intermittently - no evidence of active bleeding at this time # Neurofibromatosis type I -Supportive care #Sinus tachycardia, most likely reactive due to sympathetic drive Extensive workup done during last admission including 2-D echocardiogram of the heart, thyroid testing, multiple EKGs Patient continue with metoprolol 25 mg BID (selective beta berhane). #DVT prophylaxis Continue with heparin subcu 3 times a day #Lactic acidosis resolved Poor prognosis overall. patient continues to request full support and full code , along with aggressive measures of therapy. Anticipated discharge: 06/[address]: Home , further discussions today regarding placement options which patient refused earlier but family is requesting placement 40 minutes were spent in this patient care face to face discussing patient's plan of care today and options regarding her feeding, counseling and coordinating care.
--- NOTE | 2017-06-17 12:46 | P.PN ---
Subjective Progress Note Date: 06/17/17 Principal diagnosis: Metastatic Colon Cancer Radha seen and examined in follow-up. She had a rough night per family, decreased po intake, pain managed with current regimen, difficulty resting. per husban periods of apnea while sleeping. Her electrolytes requiring supplements, K 3.3 today. She is unable to sit up or get out of bed without assistance Objective - Vital Signs Vital signs: Vital Signs Temp 97.6 F 06/17/17 07:00 Pulse 98 06/17/17 07:00 Resp 16 06/17/17 07:00 BP 113/77 06/17/17 07:00 Pulse Ox 95 06/17/17 07:00 Intake & Output 06/16/17 06/17/17 06/17/17 18:59 06:59 18:59 Other: Voiding Method Toilet Toilet Toilet # Voids 3 13 - Exam Chronically Ill, Cachexia, Muscular atrophy noted in face, extremities. - Constitutional General appearance: Present: cooperative, no acute distress, thin - EENT Eyes: Present: EOMI, dentition normal ENT: Present: NA/AT, normal oropharynx - Neck Details: Supple trachea midline Skin with metastatic lesions on face, abdomen, Neck: Present: lymphadenopathy - Respiratory Respiratory: bilateral: diminished (Bilateral Lower lObes) - Cardiovascular Heart rate: 110 Rhythm: regular - Peripheral edema leg Peripheral Edema: bilateral: 3+ foot Peripheral Edema: bilateral: 3+ - Gastrointestinal Gastrointestinal Comment(s): Ostomy with output notes, Abdomen is soft, distended, Skin metastatic lesions General gastrointestinal: Present: distended - Integumentary Integumentary: Present: pale - Neurologic Neurologic: Present: CNII-XII intact - Musculoskeletal Musculoskeletal Comment(s): Inability to ambulate without assistance. Musculoskeletal: Present: generalized weakness - Psychiatric Psychiatric: Present: A&O x's 3, appropriate affect - Labs CBC & Chem 7: 06/17/17 10:21 06/17/17 04:26 Labs: Abnormal Lab Results - Last 24 Hours (Table) 06/16/17 06/16/17 06/16/17 Range/Units 14:35 20:03 21:05 WBC (3.8-10.6) k/uL RBC (3.80-5.40) m/uL Hgb (11.4-16.0) gm/dL Hct (34.0-46.0) % MCHC (31.0-37.0) g/dL RDW (11.5-15.5) % Neutrophils # (1.3-7.7) k/uL Lymphocytes # (1.0-4.8) k/uL Sodium (137-145) mmol/L Potassium 2.9 L* 3.0 L* (3.5-5.1) mmol/L Chloride (98-107) mmol/L Creatinine (0.52-1.04) mg/dL Glucose (74-99) mg/dL POC Glucose (mg/dL) 141 H (75-99) mg/dL Calcium (8.4-10.2) mg/dL 06/17/17 06/17/17 06/17/17 Range/Units 04:26 05:35 07:02 WBC (3.8-10.6) k/uL RBC (3.80-5.40) m/uL Hgb (11.4-16.0) gm/dL Hct (34.0-46.0) % MCHC (31.0-37.0) g/dL RDW (11.5-15.5) % Neutrophils # (1.3-7.7) k/uL Lymphocytes # (1.0-4.8) k/uL Sodium 133 L (137-145) mmol/L Potassium 3.3 L (3.5-5.1) mmol/L Chloride 92 L (98-107) mmol/L Creatinine 0.40 L (0.52-1.04) mg/dL Glucose 52 L (74-99) mg/dL POC Glucose (mg/dL) 118 H 62 L (75-99) mg/dL Calcium 7.9 L (8.4-10.2) mg/dL 06/17/17 06/17/17 06/17/17 Range/Units 07:27 08:19 10:21 WBC 21.1 H (3.8-10.6) k/uL RBC 2.98 L (3.80-5.40) m/uL Hgb 8.4 L (11.4-16.0) gm/dL Hct 27.7 L (34.0-46.0) % MCHC 30.5 L (31.0-37.0) g/dL RDW 16.9 H (11.5-15.5) % Neutrophils # 19.8 H (1.3-7.7) k/uL Lymphocytes # 0.3 L (1.0-4.8) k/uL Sodium (137-145) mmol/L Potassium (3.5-5.1) mmol/L Chloride (98-107) mmol/L Creatinine (0.52-1.04) mg/dL Glucose (74-99) mg/dL POC Glucose (mg/dL) 59 L 150 H (75-99) mg/dL Calcium (8.4-10.2) mg/dL Microbiology - Last 24 Hours (Table) 06/13/17 12:00 Blood Culture - Preliminary Blood No Growth after 72 hours 06/13/17 12:10 Blood Culture - Preliminary Blood No Growth after 72 hours Assessment and Plan Plan: Assessment and Plan (1) Hypoglycemia Narrative/Plan: Overall blood sugar pattern is improved with ongoing D10. - PO Intake has decreased over past day or two, and electrolyte supp has been needed. Concerned for re-admission potential. - Rec to Monitor 24 hours and supplement, Likely ok for discharge tomorrow per Primary teams. Current Visit: Yes Status: Acute Code(s): E16.2 - HYPOGLYCEMIA, UNSPECIFIED SNOMED Code(s): 824152928 (2) Colon cancer Narrative/Plan: - As noted multiple times previously, the patient has extensive metastatic disease which is not curable. She is felt to be a very poor candidate for chemotherapy because of her poor performance status. However the patient has consistently indicated that she wants to have active treatment, as well as full code, despite our strong recommendations to the contrary. - If the patient is stable, the plan would be for her to be discharged early next week, and then follow-up in the office to resume chemotherapy. - Her prognosis is felt to be very poor. - angain with concern his is choosing full resusitation and he is apprehensive if it comes time for his decision regarding resusitation because she is unable to make it at that time, he will need to respect her repeatedely verbalized wishes of full life saving measures. He is realistic about the seriousness of her condition. Current Visit: Yes Status: Acute Priority: High Code(s): C18.9 - MALIGNANT NEOPLASM OF COLON, UNSPECIFIED SNOMED Code(s): 274710465 Physician Attestation: I have completed the full history and physical of this patient and agree with the above dictation by Mya Silva NP. Dictated as a scribe.
[2017-06-17] MEDS: CIPROFLOXACIN HCL 500 MG TAB PO SCH (13:12)
--- NOTE | 2017-06-17 13:21 | US ---
EXAMINATION TYPE: US abdomen limited DATE OF EXAM: 06/17/2017 COMPARISON: 05/31/1717 CLINICAL HISTORY: assess for recollection of ascites. Moderate ascites seen in all 4 quadrants. IMPRESSION: Moderate volume recurrent abdominopelvic ascites.
[2017-06-17 13:29] LABS: INR 1.5 (<1.2); Prothrombin Time 13.7 sec (9.0-12.0)
--- NOTE | 2017-06-17 13:44 | PN ---
PROGRESS NOTE Patient is a 41-year-old pleasant white female with metastatic colon cancer, admitted to the hospital 10 days ago with ascites. She underwent large volume paracentesis and approximately 3 L of fluid was drained a week ago. Over the last 1 week, her oral intake has been significantly decreased and hence she was recommended by Dr. Benoit for possible PEG tube placement in order to improve her nutritional status. The patient states that she has significantly poor appetite over the last few weeks. However, this afternoon she felt like she was able to eat salad reasonably well. She denies any nausea, vomiting. She does have some abdominal distention from recurrent ascites, but denies any abdominal pain. Her last chemotherapy was about 3 weeks ago. PHYSICAL EXAMINATION: On physical examination, she appears very cachectic. Vital signs are stable. Blood pressure is 104/74, pulse rate 98, and temperature 98. HEENT examination unremarkable. Conjunctivae pink. Sclerae anicteric. Oral cavity no lesions. NECK: No JVD or lymph node enlargement. Chest was clear to auscultation. HEART: Regular rate and rhythm. Abdomen is distended. It was soft, but there was some free fluid noted in the abdomen. EXTREMITIES: No pedal edema. SKIN: No rashes. NEURO: Alert and oriented x3. No focal deficits. LABS: Labs from today WBC 21.1, hemoglobin 8.4, platelets are normal. Basic metabolic panel is within normal limits. IMPRESSION: 1. Metastatic colon cancer with multiple liver metastasis and recurrent ascites, status post paracentesis a week ago with 3 L of fluid removed. 2. Poor nutritional status; however, patient is not a candidate for a PEG tube placement in regards to ascites. RECOMMENDATIONS: I had a lengthy discussion with the patient as well as family who is at the bedside. Because of the presence of recurrent ascites PEG tube placement is a contraindication at the present time. Hence, encourage her to continue with oral intake and consideration for total parenteral nutrition is an option if this is indicated. We will sign off at this time. Please call us if needed. Thank you for this consultation. [facility] / MARV: [id number] /
[2017-06-17 17:36] LABS: Glucose,Whole Blood 46 mg/dL (75-99)
[2017-06-17 18:37] LABS: Glucose,Whole Blood 59 mg/dL (75-99)
[2017-06-17 19:06] LABS: Glucose,Whole Blood 72 mg/dL (75-99)
[2017-06-17 20:12] LABS: Glucose,Whole Blood 61 mg/dL (75-99)
[2017-06-17 20:56] LABS: Glucose,Whole Blood 80 mg/dL (75-99)
[2017-06-17 22:20] LABS: Glucose,Whole Blood 50 mg/dL (75-99)
[2017-06-17] MEDS: ZOLPIDEM 5 MG TAB PO SCH (22:22)
[2017-06-17] MEDS: SODIUM CHLORIDE IV SCH ×4 (23:29→23:39)
[2017-06-17 23:47] LABS: Glucose,Whole Blood 77 mg/dL (75-99)
[2017-06-18] MEDS: HEPARIN SODIUM,PORCINE 5,000 UNIT/ML 1 ML VIAL SQ SCH ×4 (00:14→23:07)
[2017-06-18 02:01] LABS: Glucose,Whole Blood 69 mg/dL (75-99)
[2017-06-18 03:56] LABS: Glucose,Whole Blood 73 mg/dL (75-99)
[2017-06-18 06:09] LABS: Glucose,Whole Blood 84 mg/dL (75-99)
[2017-06-18 07:56] LABS: ALT 25 U/L (9-52); AST 53 U/L (14-36); Albumin 2.3 g/dL (3.5-5.0); Alkaline Phosphatase 319 U/L (38-126); Anion Gap 13 mmol/L; Blood Urea Nitrogen 12 mg/dL (7-17); Calcium 8.3 mg/dL (8.4-10.2); Carbon Dioxide 26 mmol/L (22-30); Chloride 96 mmol/L (98-107); Glucose 64 mg/dL (74-99); Magnesium 1.7 mg/dL (1.6-2.3); Potassium 4.3 mmol/L (3.5-5.1); Sodium 135 mmol/L (137-145); Total Bilirubin 0.7 mg/dL (0.2-1.3); Total Protein 5.1 g/dL (6.3-8.2)
[2017-06-18 08:02] LABS: Glucose,Whole Blood 71 mg/dL (75-99)
[2017-06-18] MEDS: ONDANSETRON 4 MG TAB PO PRN ×2 (08:06→21:34)
[2017-06-18] MEDS: LIDOCAINE VISCOUS 2% 15 ML CUP MUCOUS MEM SCH ×3 (08:07→17:56)
[2017-06-18] MEDS: NYSTATIN 100,000 UNIT/ML SUSP 500,000 UNIT/5 ML CUP PO SCH ×4 (08:07→21:31)
[2017-06-18] MEDS: MEGESTROL 400 MG/10 ML CUP PO SCH (08:07)
[2017-06-18] MEDS: MORPHINE SULFATE ER 30 MG TABLET PO SCH ×2 (08:07→21:30)
[2017-06-18] MEDS: FUROSEMIDE 40 MG TAB PO SCH ×2 (08:08→17:56)
[2017-06-18] MEDS: FERROUS SULFATE 325 MG TAB PO SCH (08:08)
[2017-06-18] MEDS: CIPROFLOXACIN HCL 500 MG TAB PO SCH (08:08)
[2017-06-18] MEDS: METOPROLOL TARTRATE 25 MG TAB PO SCH ×3 (08:09→21:31)
[2017-06-18 10:26] LABS: Glucose,Whole Blood 77 mg/dL (75-99)
[2017-06-18 11:53] LABS: Glucose,Whole Blood 59 mg/dL (75-99)
--- NOTE | 2017-06-18 13:42 | P.PN ---
Subjective Progress Note Date: 06/18/17 Principal diagnosis: patient seen for follow up for SBP and ascites, hypoglycemia and stage IV colon cancer patient seen and examined, again no new complaints. She was restarted on D10 drip overnight due to low blood sugars. Again her hypoglycemia was not associated with any symptoms. I had family meeting today with the patient her sister her mother and her at the site we discussed goals of care, patient agreed on no CODE STATUS. And she showed interest in talking to hospice team to explore that option. She denies any fevers, chills, nausea or vomiting, she denies any abdominal pain. Objective - Vital Signs Vital signs: Vital Signs Temp 98.1 F 06/18/17 07:25 Pulse 110 H 06/18/17 07:25 Resp 16 06/18/17 07:25 BP 110/77 06/18/17 07:25 Pulse Ox 93 L 06/18/17 07:25 Intake & Output 06/17/17 06/18/17 06/18/17 18:59 06:59 18:59 Weight 47.174 kg Other: Voiding Method Toilet Toilet Toilet # Voids 2 - Exam Constitutional: vital signs stable, Not in acute distress, pleasant, conversant Lungs: Clear to auscultation bilaterally, clear to percussion, normal respiratory effort no use of accessory muscles Cardiovascular: Regular rate and rhythm, no murmurs, no gallops, no rubs, bilateral +2 leg edema Gastrointestinal: soft, no tenderness to palpation, palpable multiple hard masses throughout, ostomy bag in place and functional no bleeding, BS positive Extremities: No digital cyanosis or clubbing, peripheral pulses palpable and equal over bilateral radial arteries , no calf muscle tenderness Psych: Alert, oriented to place, person and time, appropriate affect, intact judgment - Labs CBC & Chem 7: 06/17/17 10:21 06/18/17 07:07 Labs: Abnormal Lab Results - Last 24 Hours (Table) 06/17/17 06/17/17 06/17/17 Range/Units 17:21 18:16 19:00 Sodium (137-145) mmol/L Chloride (98-107) mmol/L Creatinine (0.52-1.04) mg/dL Glucose (74-99) mg/dL POC Glucose (mg/dL) 46 L 59 L 72 L (75-99) mg/dL Calcium (8.4-10.2) mg/dL AST (14-36) U/L Alkaline Phosphatase (38-126) U/L Total Protein (6.3-8.2) g/dL Albumin (3.5-5.0) g/dL 06/17/17 06/17/17 06/18/17 Range/Units 20:05 22:18 02:00 Sodium (137-145) mmol/L Chloride (98-107) mmol/L Creatinine (0.52-1.04) mg/dL Glucose (74-99) mg/dL POC Glucose (mg/dL) 61 L 50 L 69 L (75-99) mg/dL Calcium (8.4-10.2) mg/dL AST (14-36) U/L Alkaline Phosphatase (38-126) U/L Total Protein (6.3-8.2) g/dL Albumin (3.5-5.0) g/dL 06/18/17 06/18/17 06/18/17 Range/Units 03:54 07:07 07:59 Sodium 135 L (137-145) mmol/L Chloride 96 L (98-107) mmol/L Creatinine 0.33 L (0.52-1.04) mg/dL Glucose 64 L (74-99) mg/dL POC Glucose (mg/dL) 73 L 71 L (75-99) mg/dL Calcium 8.3 L (8.4-10.2) mg/dL AST 53 H (14-36) U/L Alkaline Phosphatase 319 H (38-126) U/L Total Protein 5.1 L (6.3-8.2) g/dL Albumin 2.3 L (3.5-5.0) g/dL 06/18/17 Range/Units 11:50 Sodium (137-145) mmol/L Chloride (98-107) mmol/L Creatinine (0.52-1.04) mg/dL Glucose (74-99) mg/dL POC Glucose (mg/dL) 59 L (75-99) mg/dL Calcium (8.4-10.2) mg/dL AST (14-36) U/L Alkaline Phosphatase (38-126) U/L Total Protein (6.3-8.2) g/dL Albumin (3.5-5.0) g/dL Microbiology - Last 24 Hours (Table) 06/13/17 12:00 Blood Culture - Preliminary Blood No Growth after 96 hours 06/13/17 12:10 Blood Culture - Preliminary Blood No Growth after 96 hours Assessment and Plan Assessment: 41-year-old female with history of neurofibromatosis type I and stage IV colon cancer with metastases to the liver status post diverting colostomy currently on second line chemotherapy with FOLFOX last dose approximately 3.5 weeks ago, who presented to the hospital with complaints of abdominal pain. In the ER she underwent an extensive evaluation. She was found to be febrile with temperature 100.9 and tachycardic with a pulse of 113. Laboratory analysis was consistent with her prior anemia. She was also found to be hypokalemic and hypoglycemic. She underwent a CT abdomen and pelvis which was unchanged from prior but showed diffuse ascites and metastatic disease. There was concern for possible pneumonia and she was given a dose of vancomycin and Zosyn. She was admitted to the general medical floor for further monitoring and care. After admission and was determined that she did not have significant evidence to support a diagnosis of pneumonia. But there was concern for possible SBP and she was therefore transitioned to Rocephin. Interventional radiology has been consulted for drainage. GI was consulted and felt that drainage could be completed Saturday. jose has profound hypoglycemia which has necessitated a D10 drip with additional boluses during her hospitalization. Initially we were considering discharge home on TPN however after starting Megace she is eating small amounts throughout the day but still having hypoglycemic episodes but completely asymptomatic. We believe a large part of this is due to her liver disease and her not being able to adequately perform glycogenolysis and gluconeogenesis. However it appears she may be able to maintain her fat and protein through oral intake. We're also concerned that she already has advanced liver disease and placing her on TPN would be further toxic to the liver in addition to her chemotherapy that is also liver toxic. Her white blood cell count has also increased which may be secondary to her rapid weight progressive metastatic disease or reactive to her hypoglycemia. Blood stream infection ruled out with negative blood cultures. currently leukocytosis trending down. She finished a course of Rocephine 2 g daily for SBP, and vancomycin stopped due to negative blood cultures and no clinical evidence of infection. 06/17 I had a discussion with the patient regarding PEG tube insertion to supplement her nutrition and keep her blood sugars at normal level and avoid hypoglycemia. After discussing her options, and the way she would use the PEG ( still able to enjoy food through her mouth which we encourage, but to supplemnt with ensure through bolus feeding through the PEG tube to help with her hypoglycemia and nutritional status) she liked the idea and would like to consider this option, however after being evaluated by GI team, she was found to be not a good candidate for PEG tube insertion due to recurrent ascites and SBP. 06/18, I had a prolonged discussion with the patient and the family at bedside regarding goals of care patient agreed upon status and agreed to meet with hospice team to explore that option. The plan for today is to again discontinue the D10 drip was restarted overnight and see how her blood sugar will behave while she tries to increase her by mouth intake to have an idea on how safe it is to go home with her current low blood sugar readings. Of note her hypoglycemia has never been associated with any symptoms of hypoglycemia at all. For today the plan is also to get therapeutic paracentesis to help get her some time at home without the need to come back to the hospital or go and get the procedure done as outpatient. Plan: #Hypoglycemia, asymptomatic - Likely secondary to poor oral intake in combination with advanced liver disease -D10 drip on hold -Patient encouraged to increase by mouth intake to keep her blood sugars at normal range Monitor blood sugar every hour while awake, every 2 hours while sleeping #Severe protein calorie malnutrition -By mouth Supplementation -Dietitian recommendation - on megace -ensure supplements at least 3 times a day #leukocytosis, reactive, no evidence of systemic infection at this point blood cultures are negative to date UA and CXR negative monitor temp closely afebrile discontinue vancomycin #Sepsis resolved #possible Spontaneous bacterial peritonitis , finished 7 days of high dose rocephine s/p paracentesis continue with long course of prophylactic antibiotics to prevent recurrence of SBP, cipro 500 daily PO, possible side effects of tendon rupture were discussed with the patient and her , who verbalized understanding and agreement #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 #Electrolyte imbalance Hyponatremia, improving -Likely secondary to hypotonic fluid administration, third spacing form liver disease, and the use of Lasix -Monitor daily Hypokalemia , resolved - diuretics side effect, and poor nutritional status - monitor and replace as needed Magnesium within normal range #Ascities due to liver metastasis -Daily by mouth Lasix - s/p paracentesis 06/10 -Limited abdominal ultrasound suggested moderate ascites, patient will be upper therapeutic paracentesis prior to discharge # Mildly elevated liver enzymes likely due to infiltration of the liver from metastasis - OP follow up # Anemia, 2/2 chronic disease and chemotherapy, currently stable -Follow CBC intermittently - no evidence of active bleeding at this time # Neurofibromatosis type I -Supportive care #Sinus tachycardia, most likely reactive due to sympathetic drive Extensive workup done during last admission including 2-D echocardiogram of the heart, thyroid testing, multiple EKGs Patient continue with metoprolol 25 mg BID (selective beta berhane). #DVT prophylaxis Continue with heparin subcu 3 times a day Poor prognosis overall. Patient will benefit from hospice care at this point, patient will be evaluated by hospice today. CODE STATUS was converted to no code after further discussion with patient. At this time the patient will be focusing on being with her family and feeling better and try to increase her by mouth intake. She will follow up with oncology outpatient. Anticipated discharge: 06/[address]: Home , possibly with hospice referral 45 minutes were spent in this patient care face to face discussing with the patient and her family at bedside goals of care, counseling and coordinating care
--- NOTE | 2017-06-18 14:14 | US ---
Therapeutic paracentesis. DATE OF EXAM: 06/18/2017 CLINICAL HISTORY: Ascites Preliminary imaging demonstrates no sizable fluid collection. Patient wished to defer procedure. IMPRESSION: Discontinued paracentesis
[2017-06-18 15:27] LABS: Glucose,Whole Blood 53 mg/dL (75-99)
[2017-06-18 17:21] LABS: Glucose,Whole Blood 69 mg/dL (75-99)
--- NOTE | 2017-06-18 17:21 | P.PN ---
Subjective Progress Note Date: 06/18/17 The patient continues to tolerate small amounts of by mouth on a regular basis. Her blood sugar did drop when taken off the T10, which was then reinstituted. However she remained asymptomatic. Pain control is reasonable. She denies any increased distention or pain in the abdomen. Ostomy is functioning. Objective - Vital Signs Vital signs: Vital Signs Temp 97.5 F L 06/18/17 14:45 Pulse 110 H 06/18/17 14:45 Resp 16 06/18/17 14:45 BP 90/60 06/18/17 14:45 Pulse Ox 100 06/18/17 14:45 Intake & Output 06/17/17 06/18/17 06/18/17 18:59 06:59 18:59 Weight 47.174 kg Other: Voiding Method Toilet Toilet Toilet # Voids 2 - Constitutional General appearance: Present: no acute distress - EENT Eyes: Present: PERRLA ENT: Present: normal oropharynx - Respiratory Respiratory: bilateral: diminished - Cardiovascular Rhythm: regular Heart sounds: normal: S1, S2 - Gastrointestinal General gastrointestinal: Present: distended, normal bowel sounds, soft - Neurologic Neurologic: Present: CNII-XII intact - Musculoskeletal Musculoskeletal: Present: generalized weakness, strength equal bilaterally - Psychiatric Psychiatric: Present: A&O x's 3 - Labs CBC & Chem 7: 06/17/17 10:21 06/18/17 07:07 Labs: Abnormal Lab Results - Last 24 Hours (Table) 06/17/17 06/17/17 06/17/17 Range/Units 17:21 18:16 19:00 Sodium (137-145) mmol/L Chloride (98-107) mmol/L Creatinine (0.52-1.04) mg/dL Glucose (74-99) mg/dL POC Glucose (mg/dL) 46 L 59 L 72 L (75-99) mg/dL Calcium (8.4-10.2) mg/dL AST (14-36) U/L Alkaline Phosphatase (38-126) U/L Total Protein (6.3-8.2) g/dL Albumin (3.5-5.0) g/dL 06/17/17 06/17/17 06/18/17 Range/Units 20:05 22:18 02:00 Sodium (137-145) mmol/L Chloride (98-107) mmol/L Creatinine (0.52-1.04) mg/dL Glucose (74-99) mg/dL POC Glucose (mg/dL) 61 L 50 L 69 L (75-99) mg/dL Calcium (8.4-10.2) mg/dL AST (14-36) U/L Alkaline Phosphatase (38-126) U/L Total Protein (6.3-8.2) g/dL Albumin (3.5-5.0) g/dL 06/18/17 06/18/17 06/18/17 Range/Units 03:54 07:07 07:59 Sodium 135 L (137-145) mmol/L Chloride 96 L (98-107) mmol/L Creatinine 0.33 L (0.52-1.04) mg/dL Glucose 64 L (74-99) mg/dL POC Glucose (mg/dL) 73 L 71 L (75-99) mg/dL Calcium 8.3 L (8.4-10.2) mg/dL AST 53 H (14-36) U/L Alkaline Phosphatase 319 H (38-126) U/L Total Protein 5.1 L (6.3-8.2) g/dL Albumin 2.3 L (3.5-5.0) g/dL 06/18/17 06/18/17 Range/Units 11:50 14:58 Sodium (137-145) mmol/L Chloride (98-107) mmol/L Creatinine (0.52-1.04) mg/dL Glucose (74-99) mg/dL POC Glucose (mg/dL) 59 L 53 L (75-99) mg/dL Calcium (8.4-10.2) mg/dL AST (14-36) U/L Alkaline Phosphatase (38-126) U/L Total Protein (6.3-8.2) g/dL Albumin (3.5-5.0) g/dL Microbiology - Last 24 Hours (Table) 06/13/17 12:00 Blood Culture - Preliminary Blood No Growth after 120 hours 06/13/17 12:10 Blood Culture - Preliminary Blood No Growth after 120 hours Assessment and Plan (1) Hypoglycemia Narrative/Plan: The patient was tried to be weaned off the D10. She has continued to take by mouth on a frequent basis with good tolerance. Her blood sugar did drop into the 30 range though she remained asymptomatic. On the D10, she has been generally above 50. The case was discussed with case management. D10 is covered once the patient has met her deductible. The admitting service will be addressing goals of care once again with her, prior to making a decision about sending her home on D10. Current Visit: Yes Status: Acute Code(s): E16.2 - HYPOGLYCEMIA, UNSPECIFIED SNOMED Code(s): 681496691 (2) Colon cancer Narrative/Plan: the patient is probably optimized as much as possible at this time. She maintains a very poor candidate for chemotherapy, with marked generalized weakness, cachexia, as well as hyperglycemia. I again discussed her wishes with her. It has been emphasized to her, and to her family multiple times that the chemotherapy would not be curative. She would be at high risk of adverse events, including worsening of symptoms and shortening of life. The patient again categorically stated to me that she does want to try chemotherapy. Outpatient follow-up in the office will be set up for her at the time of discharge, unless she changes her mind Her stated that he understood that she was very poor candidate for chemotherapy, and had talked to her about a comfort-based approach. However, she had a reiterated to him that she wanted active treatment. Current Visit: Yes Status: Acute Priority: High Code(s): C18.9 - MALIGNANT NEOPLASM OF COLON, UNSPECIFIED SNOMED Code(s): 960069895
[2017-06-18 19:11] LABS: Glucose,Whole Blood 89 mg/dL (75-99)
[2017-06-18 21:08] LABS: Glucose,Whole Blood 70 mg/dL (75-99)
[2017-06-18] MEDS: ZOLPIDEM 5 MG TAB PO SCH (21:30)
[2017-06-18 23:19] LABS: Glucose,Whole Blood 72 mg/dL (75-99)
[2017-06-19 01:35] LABS: Glucose,Whole Blood 60 mg/dL (75-99)
[2017-06-19 04:41] LABS: Glucose,Whole Blood 55 mg/dL (75-99)
[2017-06-19] MEDS: DEXTROSE 10% IV SCH ×2 (04:51)
[2017-06-19] MEDS: SODIUM CHLORIDE IV SCH ×2 (04:51)
[2017-06-19] MEDS: WATER IV SCH ×2 (04:51)
[2017-06-19 07:01] LABS: Glucose,Whole Blood 70 mg/dL (75-99)
[2017-06-19] MEDS: MEGESTROL 400 MG/10 ML CUP PO SCH (08:12)
[2017-06-19] MEDS: MORPHINE SULFATE ER 30 MG TABLET PO SCH (08:13)
[2017-06-19] MEDS: HEPARIN SODIUM,PORCINE 5,000 UNIT/ML 1 ML VIAL SQ SCH (08:14)
[2017-06-19] MEDS: FERROUS SULFATE 325 MG TAB PO SCH (08:14)
[2017-06-19] MEDS: CIPROFLOXACIN HCL 500 MG TAB PO SCH (08:14)
[2017-06-19] MEDS: LIDOCAINE VISCOUS 2% 15 ML CUP MUCOUS MEM SCH ×2 (08:14→12:14)
[2017-06-19] MEDS: FUROSEMIDE 40 MG TAB PO SCH (08:15)
[2017-06-19] MEDS: NYSTATIN 100,000 UNIT/ML SUSP 500,000 UNIT/5 ML CUP PO SCH ×2 (08:15→12:14)
[2017-06-19] MEDS: METOPROLOL TARTRATE 25 MG TAB PO SCH (08:15)
[2017-06-19 09:24] LABS: Glucose,Whole Blood 68 mg/dL (75-99)
[2017-06-19 11:04] LABS: Glucose,Whole Blood 98 mg/dL (75-99)
--- NOTE | 2017-06-19 12:46 | P.DS ---
Providers Date of admission: 06/07/17 20:52 Attending physician: Mynor Benoit MD Consults: 06/10/17 14:00 Consult Physician Routine Consulting Provider: Marquez Joseph Consult Reason/Comments: cancer Do you want consulting provider notified?: Already Contacted 06/13/17 11:54 Consult Physician Routine Consulting Provider: Dwight Hutton Consult Reason/Comments: elevated WBC, liver disease, metastatic cancer Do you want consulting provider notified?: Yes Primary care physician: Cammie Henderson MD Hospital Course: Final diagnosis at discharge Spontaneous bacterial peritonitis Nondiabetic hypoglycemia secondary to advanced liver disease from metastatic cancer Stage IV colon cancer with metastases to the liver Recurrent ascites 41-year-old female with history of neurofibromatosis type I and stage IV colon cancer with metastases to the liver status post diverting colostomy currently on second line chemotherapy with FOLFOX last dose approximately 3.5 weeks ago, who presented to the hospital with complaints of abdominal pain. In the ER she underwent an extensive evaluation. She was found to be febrile with temperature 100.9 and tachycardic with a pulse of 113. Laboratory analysis was consistent with her prior anemia. She was also found to be hypokalemic and hypoglycemic. She underwent a CT abdomen and pelvis which was unchanged from prior but showed diffuse ascites and metastatic disease. There was concern for possible pneumonia and she was given a dose of vancomycin and Zosyn. She was admitted to the general medical floor for further monitoring and care. After admission and was determined that she did not have significant evidence to support a diagnosis of pneumonia. But there was concern for possible SBP and she was therefore transitioned to Rocephin. Interventional radiology has been consulted for drainage. GI was consulted and felt that drainage could be completed Saturday. jose has profound hypoglycemia which has necessitated a D10 drip with additional boluses during her hospitalization. Initially we were considering discharge home on TPN however after starting Megace she is eating small amounts throughout the day but still having hypoglycemic episodes but completely asymptomatic. We believe a large part of this is due to her liver disease and her not being able to adequately perform glycogenolysis and gluconeogenesis. However it appears she may be able to maintain her fat and protein through oral intake. We're also concerned that she already has advanced liver disease and placing her on TPN would be further toxic to the liver in addition to her chemotherapy that is also liver toxic. Her white blood cell count has also increased which may be secondary to her rapid weight progressive metastatic disease or reactive to her hypoglycemia. Blood stream infection ruled out with negative blood cultures. currently leukocytosis trending down. She finished a course of Rocephine 2 g daily for SBP, and vancomycin stopped due to negative blood cultures and no clinical evidence of infection. 06/17 I had a discussion with the patient regarding PEG tube insertion to supplement her nutrition and keep her blood sugars at normal level and avoid hypoglycemia. After discussing her options, and the way she would use the PEG ( still able to enjoy food through her mouth which we encourage, but to supplemnt with ensure through bolus feeding through the PEG tube to help with her hypoglycemia and nutritional status) she liked the idea and would like to consider this option, however after being evaluated by GI team, she was found to be not a good candidate for PEG tube insertion due to recurrent ascites and SBP. 06/18, I had a prolonged discussion with the patient and the family at bedside regarding goals of care patient agreed upon status and agreed to meet with hospice team to explore that option. The plan for today is to again discontinue the D10 drip was restarted overnight and see how her blood sugar will behave while she tries to increase her by mouth intake to have an idea on how safe it is to go home with her current low blood sugar readings. Of note her hypoglycemia has never been associated with any symptoms of hypoglycemia at all. For today the plan is also to get therapeutic paracentesis to help get her some time at home without the need to come back to the hospital or go and get the procedure done as outpatient. 06/19 for the past 2 days patient has been depending on by mouth intake to maintain her blood sugars, she continues to have few readings in the low 50s to 60s range with other readings high up in the 90s however none of the low r blood sugar readings were associated with any signs or symptoms of hypoglycemia. Patient did a good job and increasing her by mouth intake. She feels confident that she can continue this trend at home. She had a discussion with the hospice care team yesterday who will be visiting her at home to initiate hospice care tomorrow 06/20. Patient seen and examined today no new complaints, patient feels ready to go home today. Patient continues to be a no code, she will have a discussion with her family about her wishes on how to progress in case she loses the ability making decisions on her own while under hospice care. Patient continues to hope that one day she'll have enough strength to resume her chemotherapy despite the fact that she understands that chemotherapy will not provide any cure. This is something that she will discuss with her oncologist when she is ready to follow-up. Constitutional: vital signs stable, Not in acute distress, pleasant, conversant , cachectic Lungs: Clear to auscultation bilaterally, clear to percussion, normal respiratory effort no use of accessory muscles Cardiovascular: Regular rate and rhythm, no murmurs, no gallops, no rubs, +2 peripheral edema bilaterally Gastrointestinal: Abdomen is soft, no tenderness to palpation, multiple palpable masses through the skin, colostomy bag in place and functional. Extremities: No digital cyanosis or clubbing, peripheral pulses palpable and equal over bilateral radial arteries and dorsalis pedis artery, no calf muscle tenderness Psych: Alert, oriented to place, person and time, appropriate affect, intact judgment Patient to be discharged home today and to meet with hospice team tomorrow to initiate home hospice care Prescriptions refilled and sent her preferred pharmacy Patient will be required to be on long-term Cipro 500 mg daily to prevent recurrent attacks of spontaneous bacterial peritonitis Maps were checked on the patient and was provided with refills for her morphine and [place] and Ambien. Patient to follow up with oncology on an as-needed basis Patient was provided with Megace to increase her by mouth intake Prognosis remains poor, with life expectancy a few weeks. This has been relayed to the patient and family on multiple occasions who verbalized understanding. 40 minutes were spent discharging this patient, and more than 50% of the time was spent in counseling the patient and family and in coordinating care. Pertinent Studies: Ultrasound-guided paracentesis Patient Condition at Discharge: Poor Plan - Discharge Summary Discharge Rx Participant: Yes New Discharge Prescriptions: New Ciprofloxacin HCl [Cipro] 500 mg PO DAILY #30 tab Furosemide [Lasix] 40 mg PO DAILY #30 tab Mag Hydrox/Al Hydrox/Simeth [Maalox] 30 ml PO TID PRN #30 cup PRN Reason: Constipation Megestrol [Megace] 800 mg PO DAILY #60 cup MORPHINE ORAL JAGJIT 2mg/mL [Morphine Oral Soln 2 MG/ML] 10 mg PO Q4HR PRN #100 ml PRN Reason: Moderate Pain Morphine Sulfate ER [Ms Contin] 30 mg PO Q12HR #14 tablet Zolpidem [Ambien] 5 mg PO HS #30 tab Continue Ferrous Sulfate [Iron (65 MG Elemental)] 325 mg PO DAILY Diphenoxylate HCl/Atropine [Lomotil 2.5-0.025 mg Tablet] 1 tab PO Q6HR PRN PRN Reason: Diarrhea Calcium Carbonate [Tums] 500 mg PO TID PRN #60 chew PRN Reason: Heartburn HYDROcodone/APAP 5-325MG [[place] 5-325] 1 tab PO BID PRN #10 tab PRN Reason: Pain Lidocaine Viscous 2% [Xylocaine Viscous] 5 ml MUCOUS MEM AC-TID #100 ml Metoprolol Tartrate [Lopressor] 25 mg PO BID #60 tab Nystatin 100,000 Unit/ml Susp [Mycostatin Oral Susp] 500,000 unit PO QID #20 cup Ondansetron [Zofran] 4 mg PO QID PRN #100 tab PRN Reason: Nausea Discontinued Furosemide [Lasix] 20 mg PO DAILY Mag Hydrox/Al Hydrox/Simeth [Maalox] 30 ml PO TID #10 cup Discharge Medication List Ferrous Sulfate [Iron (65 MG Elemental)] 325 mg PO DAILY 05/21/17 [History] Diphenoxylate HCl/Atropine [Lomotil 2.5-0.025 mg Tablet] 1 tab PO Q6HR PRN 06/07 [History] Calcium Carbonate [Tums] 500 mg PO TID PRN #60 chew 06/19/17 [Rx] Ciprofloxacin HCl [Cipro] 500 mg PO DAILY #30 tab 06/19/17 [Rx] Furosemide [Lasix] 40 mg PO DAILY #30 tab 06/19/17 [Rx] HYDROcodone/APAP 5-325MG [[place] 5-325] 1 tab PO BID PRN #10 tab 06/19/17 [Rx] Lidocaine Viscous 2% [Xylocaine Viscous] 5 ml MUCOUS MEM AC-TID #100 ml [Rx] MORPHINE ORAL JAGJIT 2mg/mL [Morphine Oral Soln 2 MG/ML] 10 mg PO Q4HR PRN #100 ml 06/19/17 [Rx] Mag Hydrox/Al Hydrox/Simeth [Maalox] 30 ml PO TID PRN #30 cup 05/09/18 [Rx] Megestrol [Megace] 800 mg PO DAILY #60 cup 06/19/17 [Rx] Metoprolol Tartrate [Lopressor] 25 mg PO BID #60 tab 06/19/17 [Rx] Morphine Sulfate ER [Ms Contin] 30 mg PO Q12HR #14 tablet 06/19/17 [Rx] Nystatin 100,000 Unit/ml Susp [Mycostatin Oral Susp] 500,000 unit PO QID #20 cup 06/19/17 [Rx] Ondansetron [Zofran] 4 mg PO QID PRN #100 tab 06/19/17 [Rx] Zolpidem [Ambien] 5 mg PO HS #30 tab 06/19/17 [Rx] Follow up Appointment(s)/Referral(s): Cammie Henderson MD [Primary Care Provider] - 1-2 days Marquez Joseph MD [STAFF PHYSICIAN] - As Needed Patient Instructions/Handouts: Non-diabetic Hypoglycemia (DC) Activity/Diet/Wound Care/Special Instructions: [facility] [phone] pt has a hospital bed and wheelchair waiting at [facility] for pt to sc d/c - please call for delivery. Discharge Disposition: HOME WITH HOSPICE
[2017-06-19 13:09] LABS: Glucose,Whole Blood 84 mg/dL (75-99)
[2017-06-19 13:42] VITALS: BP 102/68; PULSE 71; TEMP 97.7
--- NOTE | 2017-06-19 15:59 | P.PN ---
Subjective Progress Note Date: 06/19/17 Principal diagnosis: Metastatic Colon Cancer Radha seen and examined in follow-up. She had a rough night per family, decreased po intake, pain managed with current regimen, difficulty resting. per husban periods of apnea while sleeping. Her electrolytes requiring supplements, K 3.3 today. She is unable to sit up or get out of bed without assistance Objective - Vital Signs Vital signs: Vital Signs Temp 97.7 F 06/19/17 13:40 Pulse 71 06/19/17 13:40 Resp 16 06/19/17 13:40 BP 102/68 06/19/17 13:40 Pulse Ox 94 L 06/19/17 13:40 Intake & Output 06/18/17 06/19/17 06/19/17 18:59 06:59 18:59 Intake Total 590 Balance 590 Weight 47.174 kg Intake: Oral 590 Other: Voiding Method Toilet Bedside Commode Bedside Commode # Voids 20 - Constitutional Constitutional Comment(s): Chronically ill, cachexic General appearance: Present: cooperative, mild distress, thin - EENT ENT: Present: NA/AT, pharyngeal erythema - Neck Details: Multiple areas of tumor lesions to skin Neck: Present: normal ROM - Respiratory Respiratory: bilateral: diminished (lower lobes) - Cardiovascular Heart rate: 104 Rhythm: regular - Peripheral edema leg Peripheral Edema: bilateral: 3+ - Gastrointestinal General gastrointestinal: Present: distended, hepatomegaly, soft, tenderness - Integumentary Integumentary: Present: pale - Neurologic Neurologic: Present: CNII-XII intact - Musculoskeletal Musculoskeletal: Present: generalized weakness, strength equal bilaterally - Psychiatric Psychiatric: Present: A&O x's 3, appropriate affect, intact judgment & insight - Labs CBC & Chem 7: 06/17/17 10:21 06/18/17 07:07 Labs: Abnormal Lab Results - Last 24 Hours (Table) 06/18/17 06/18/17 06/18/17 Range/Units 17:18 21:07 23:06 POC Glucose (mg/dL) 69 L 70 L 72 L (75-99) mg/dL 06/19/17 06/19/17 06/19/17 Range/Units 01:34 04:40 07:00 POC Glucose (mg/dL) 60 L 55 L 70 L (75-99) mg/dL 06/19/17 Range/Units 09:22 POC Glucose (mg/dL) 68 L (75-99) mg/dL Microbiology - Last 24 Hours (Table) 06/13/17 12:00 Blood Culture - Final Blood No Growth after 144 hours 06/13/17 12:10 Blood Culture - Final Blood No Growth after 144 hours Assessment and Plan Plan: Assessment and Plan (1) Hypoglycemia Narrative/Plan: Overall blood sugar pattern is improved with ongoing D10. - PO Intake has decreased, tolerating fluids. Concerned for re-admission potential. - Plan for discharge today per primary team, follow-up as outpatient Current Visit: Yes Status: Acute Code(s): E16.2 - HYPOGLYCEMIA, UNSPECIFIED SNOMED Code(s): 769602144 (2) Colon cancer Narrative/Plan: - As noted multiple times previously, the patient has extensive metastatic disease which is not curable. She is felt to be a very poor candidate for chemotherapy because of her poor performance status. However the patient has consistently indicated that she wants to have active treatment, as well as full code, despite our strong recommendations to the contrary. - If the patient is stable, the plan would be for her to be discharged today, and then follow-up in the office to resume chemotherapy. - Her prognosis is felt to be very poor. - angain with concern his is choosing full resusitation and he is apprehensive if it comes time for his decision regarding resusitation because she is unable to make it at that time, he will need to respect her repeatedely verbalized wishes of full life saving measures. He is realistic about the seriousness of her condition. Current Visit: Yes Status: Acute Priority: High Code(s): C18.9 - MALIGNANT NEOPLASM OF COLON, UNSPECIFIED SNOMED Code(s): 265320459 Physician Attestation: I have completed the full history and physical of this patient and agree with the above dictation by Mya Silva NP. Dictated as a scribe.
== END 2017-06-19 14:50 | disposition hospice, home (50) | DRG 871 ==
LOC: EC 18:32 → 5ONC 20:52
PROVIDERS: ADMIT Internal Medicine; ATTEND Internal Medicine
PROC: 0W9G3ZZ Drainage of Peritoneal Cavity, Percutaneous Approach (ICD-10-PCS; principal; 2017-06-10)
DX: A41.9 Sepsis, unspecified organism (principal); E43 Unspecified severe protein-calorie malnutrition; K65.2 Spontaneous bacterial peritonitis; C18.9 Malignant neoplasm of colon, unspecified; C78.6 Secondary malignant neoplasm of retroperitoneum and peritoneum; C78.7 Secondary malignant neoplasm of liver and intrahepatic bile duct; E87.1 Hypo-osmolality and hyponatremia; J90 Pleural effusion, not elsewhere classified; J98.11 Atelectasis; R18.8 Other ascites; R64 Cachexia; Z68.1 Body mass index [BMI] 19.9 or less, adult; D63.8 Anemia in other chronic diseases classified elsewhere; Z66 Do not resuscitate; D64.81 Anemia due to antineoplastic chemotherapy; E16.2 Hypoglycemia, unspecified; E87.6 Hypokalemia; Q85.01 Neurofibromatosis, type 1; T45.1X5A Adverse effect of antineoplastic and immunosuppressive drugs, initial encounter; R00.0 Tachycardia, unspecified; R79.89 Other specified abnormal findings of blood chemistry; D72.829 Elevated white blood cell count, unspecified; K72.90 Hepatic failure, unspecified without coma; Z93.3 Colostomy status; Z88.0 Allergy status to penicillin; Z87.891 Personal history of nicotine dependence; Z88.8 Allergy status to other drugs, medicaments and biological substances; Z79.899 Other long term (current) drug therapy; Z90.49 Acquired absence of other specified parts of digestive tract; Z81.8 Family history of other mental and behavioral disorders; Z82.0 Family history of epilepsy and other diseases of the nervous system; W19.XXXA Unspecified fall, initial encounter
CPT/HCPCS: 36415; 49083; 71045; 71046; 72082; 72220; 74177; 76705; 80048; 80051; 80053; 80202; 81001; 81003; 82945; 83605; 83615; 83735; 84100; 84132; 84157; 84484; 85025; 85027; 85049; 85610; 85730; 87040; 87070; 87086; 87205; 87502; 89050; 93005; 94760; 99285